=== PATIENT | female | born 1950 | race Hispanic/Latino ===

== ENCOUNTER → 2017-03-08 | Outpatient (CLI) | payer MEDICARE ==
[~2017-03-08] MED LIST: ACTOS15 MG PO; ALEVE220 MG PO; AMLODIPINE BESY10 MG PO; APIDRA SOL100 UNIT/1 SC; COUMADIN3 MG PO; DIOVAN160 MG PO; DIOVAN80 MG PO; IBUPROFEN400 MG PO; KLOR-CON 1010 MEQ PO; LANTUS100 UNITS/ SC; LASIX40 MG PO; METFORMIN HCL500 MG PO; MULTI-VITAMIN1 EACH PO; NORCO 7.5-3251 EACH PO; ROPINIROLE HCL1 MG PO; SIMVASTATIN20 MG PO; ULTRAM 50MG50 MG PO; VIT D3 PO; ZOLOFT50 MG PO; [UNRECOGNIZED DRUG - OTHER] PO; vit c PO
--- NOTE | 2017-03-08 19:30 | Diagnostic Imaging Report ---
EXAM: VENTILATION PERFUSION LUNG SCAN INDICATION: 66 F with history of blood clots; SOB; possible pulmonary hypertension COMPARISON: CT chest 08/29/2016 DISCUSSION: Xenon-133 gas 20 mCi was administered via inhalation. Dynamic images of the lungs in the posterior projection were obtained through single breath and washout phases. Distribution of tracer activity is irregular throughout the lungs. Washout is diffusely delayed without evidence of air trapping. Perfusion images of the lungs in multiple projections were obtained following intravenous administration of 6.6 mCi of Tc-99m MAA. Distribution of tracer is irregular throughout the lungs. There are no segmental perfusion defects of any size. The contours of the lungs are well demarcated. The cardiac silhouette is enlarged. Images of the head show no intracerebral accumulation of the tracer. Images of the kidneys show no intraparenchymal accumulation of tracer. IMPRESSION: 1. Scan findings represent a VERY LOW probability for acute pulmonary embolic disease based on the PIOPED II criteria. 2. Scan findings are compatible with diffuse parenchymal and/or obstructive lung disease. 3. No right to left shunt is identified. Findings typical of chronic thromboembolic pulmonary hypertension are not present. 4. Enlarged cardiac silhouette. Signed by: Dr. Sylvia Pacheco M.D. on 03/08/2017 7:27 PM
== END ==
LOC: NM 12:54
PROVIDERS: ATTEND Internal Medicine Critical Care Medicine
DX: I26.99 Other pulmonary embolism without acute cor pulmonale (principal)
CPT/HCPCS: 78582

== ENCOUNTER → 2017-07-18 | Outpatient (CLI) | payer MEDICARE ==
[~2017-07-18] MED LIST changes: +REGADENOSON 0.4 MG/5 ML SYR IV ONE
--- NOTE | 2017-07-19 13:30 | Cardiology Report ---
DATE OF STUDY: July 18, 2017 LEXISCAN NUCLEAR STRESS TEST INDICATIONS: Chest pain. DESCRIPTION OF PROCEDURE: After informed consent, the patient was brought to the stress lab. She was given 11 mCi of technetium 99 Myoview, and myocardial perfusion SPECT images were obtained in the horizontal long and short axis and vertical long axis. Subsequently, the patient was given 0.4 mg of Lexiscan over 10 seconds. Patient was given 33 mCi of technetium 99 Myoview intravenously, and myocardial perfusion SPECT images were obtained in horizontal long axis and short axis and vertical long axis. Gated images were also obtained. Patient tolerated the procedure without any complications. REPORT: Baseline EKG shows atrial fibrillation at 63 beats per minute, normal axis, normal intervals, PVCs, nonspecific ST-T changes. PARAMETERS 1. Resting heart rate is 73 beats per minute. 2. Maximal heart rate is 91 beats per minute. 3. Resting blood pressure 142/81 mmHg. 4. Maximum blood pressure 149/76 mmHg. REASON FOR TERMINATION: Endpoint attained. INTERPRETATION 1. Negative for chest pain. 2. Negative for arrhythmias. 3. Blood pressure response consistent with Lexiscan. 4. No significant ST-T changes seen during Lexiscan infusion compared to baseline. 5. Analysis of SPECT images reveals patchy radioisotope uptake both during stress and at rest without any significant reversible or fixed perfusion defects. CONCLUSIONS 1. No evidence of significant ischemia or infarction on this study. 2. No wall motion abnormalities on this study. 3. Ejection fraction is 67%. Job#: [id number]
== END ==
LOC: NM 07:50
DX: I50.32 Chronic diastolic (congestive) heart failure (principal)
CPT/HCPCS: 78452; 93017; A9502

== ENCOUNTER → 2018-02-22 | Day surgery (SDC) | payer MEDICARE ==
[2018-02-21 13:20] LABS: BASOPHILS % 0.4 % (0.0-1.0); EOSINOPHILS # (AUTO) 0.2 (0.0-0.4); EOSINOPHILS % 2.4 % (0.0-6.0); HEMATOCRIT 41.8 % (34.2-44.1); LYMPHOCYTES # (AUTO) 0.9 (1.0-3.2); LYMPHOCYTES % 11.8 % (18.0-39.1); MEAN CORPUSCULAR HEMOGLOBIN 28.8 pg (28-32); MEAN CORPUSCULAR HGB CONC 31.1 g/dL (31-35); MEAN CORPUSCULAR VOLUME 92.5 fL (81-99); MONOCYTES # (AUTO) 0.5 (0.2-0.8); MONOCYTES % 6.6 % (4.4-11.3); NEUTROPHILS # (AUTO) 5.8 (2.1-6.9); PLATELET COUNT 313 x10e3/uL (140-360); RED BLOOD COUNT 4.52 x10e6/uL (3.6-5.1); RED CELL DISTRIBUTION WIDTH 13.1 % (11.7-14.4)
[~2018-02-22] MED LIST changes: +HUMULIN R100 UNIT/2 SQ; +INSULIN REGULAR, HUMAN 100 UNIT/1 ML 3ML VIAL ONE; +LOSARTAN POTASS25 MG PO; +MIDAZOLAM HCL 2 MG/2 ML VIAL ONE; +PROPOFOL IV EMULSION 10 MG/ML 20 ML VIAL ONE; -REGADENOSON 0.4 MG/5 ML SYR IV ONE; +WARFARIN SODIUM3 MG PO
--- OUTSIDE RECORDS SUMMARY | 2018-02-22 06:07 | XMS REPORT | Summary of Care ---
Author Organization Unknown Address Unknown Phone Unavailable Encounter Dates Location Diagnoses Discharge Providers Disposition 05/06/2013 [facility] Outpatient Imaging - Home Po Ingram 05/06/2013 [address] [place], [place] [id number] [place] [address] Reason for Visit 404 - HTN HRT/CHRON K Problem List Condition Effective Dates Status Health Status Informant Back pain(Confirmed) Resolved Cancer(Confirmed)1 Resolved Diabetes Active mellitus(Confirmed) Hypertension(Confirm Active ed) 1skin cancer of nose Allergies, Adverse Reactions, Alerts Status Substance Reaction Severity Active NKDA Medications No data available for this section Medications Administered During Your Visit No data available for this section Immunizations No data available for this section Social History Social History Type Response Smoking Status Use: Never smoker. Household tobacco concerns: No. Tobacco smoke exposure: None. Did the Patient Smoke Cigarettes Anytime During the Last 365 Days? No. Cessation Counseling Provided? No.
--- OUTSIDE RECORDS SUMMARY | 2018-02-22 06:07 | XMS REPORT | Summary of Care ---
Author Organization Unknown Address Unknown Phone Unavailable Encounter HQ Cristian_black([facility]) [id number] Date(s): 10/02/13 - 10/02/13 [facility] Outpatient Imaging - [address] [address]- [place] Discharge Disposition: Home Physician Attending: Po Ingram MD Reason for Visit 401.9 - HYPERTENSION NO Problem List Condition Effective Dates Status Health Status Informant Back pain(Confirmed) Resolved Cancer(Confirmed)1 Resolved Diabetes Active mellitus(Confirmed) Hypertension(Confirm Active ed) 1skin cancer of nose Allergies, Adverse Reactions, Alerts Substance Reaction Severity Status NKDA Active Medications No data available for this section Medications Administered During Your Visit No data available for this section Immunizations No data available for this section Social History Social History Type Response Smoking Status Never smoker, Concerns about tobacco use in household: No, Exposure to Tobacco Smoke None, Cigarette Smoking Last 365 Days No, Reg Smoking Cessation Counseling No
--- OUTSIDE RECORDS SUMMARY | 2018-02-22 06:07 | XMS REPORT | Summary of Care ---
Author Organization Unknown Address Unknown Phone Unavailable Encounter Dates Location Diagnoses Discharge Providers Disposition 04/26/2013 [facility] [id number] epistaxis [place], [place] [address]- , [facility] Reason for Visit NOSE BLEED Vital Signs Most recent to 1 2 oldest [Reference Range]: Height 170.18 cm (04/26/2013 14:49:00 [place]) Temperature Oral 97.5 DegF 97.6 DegF [96.4-99.1 DegF] (04/26/2013 16:10:00 [place]) (04/26/2013 14:49:00 [place]) Systolic Blood 176 mmHg 180 mmHg Pressure [90-140 *HI* *HI* mmHg] (04/26/2013 16:10:00 [place]) (04/26/2013 14:49:00 [place]) Diastolic Blood 83 mmHg 91 mmHg Pressure [60-90 (04/26/2013 16:10:00 [place]) *HI* mmHg] (04/26/2013 14:49:00 [place]) Respiratory Rate 18 BRMIN 18 BRMIN [14-20 BRMIN] (04/26/2013 16:10:00 [place]) (04/26/2013 14:49:00 [place]) Peripheral Pulse 77 bpm 79 bpm Rate [60-100 bpm] (04/26/2013 16:10:00 [place]) (04/26/2013 14:49:00 [place]) Weight 152.273 kg (04/26/2013 14:49:00 [place]) Body Mass Index 52.58 m2 (04/26/2013 14:49:00 [place]) Problem List Condition Effective Dates Status Health Status Informant Back pain(Confirmed) Resolved Cancer(Confirmed)1 Resolved Diabetes Active mellitus(Confirmed) Hypertension(Confirm Active ed) 1skin cancer of nose Allergies, Adverse Reactions, Alerts Status Substance Reaction Severity Active NKDA Medications Medication Instructions Start Date Stop Date Status mupirocin topical 2% 1 appl, TOP, TID, # 22 gm, 0 04/26/2013 Ordered ointment Refill(s) Arya-Synephrine Extra 2 spray, Route: NASAL, Dosing 04/26/2013 04/26/2013 Discontinued Strength Nasal 1% Weight 152.273, kg, ONCE, STAT, spray Start date: 04/26/13 16:02:00, Stop date: 04/26/13 16:02:00 Medications Administered During Your Visit No data available for this section Immunizations No data available for this section Social History Social History Type Response Smoking Status Use: Never smoker. Household tobacco concerns: No. Tobacco smoke exposure: None. Did the Patient Smoke Cigarettes Anytime During the Last 365 Days? No. Cessation Counseling Provided? No.
--- OUTSIDE RECORDS SUMMARY | 2018-02-22 06:07 | XMS REPORT | Continuity of Care Document ---
Author Author Husam elias Organization Interface Address Unknown Phone Unavailable Problems Problem Status Onset Date Classification Date Reported Comments Source Pain in left shoulder 2017 08/16/2017 [facility] [place] [facility] UNK Active 07/27/2015 [facility] LAP TOTAL HYST Active 07/27/2015 [facility] Z12.31 - ENCNTR SCREEN MAMMOGRAM FOR MA Active 05/19/2015 [facility] 786.05 / 493.90 / 786.2 Active 11/21/2014 [facility] R06.02/J45.909/R05 Active 11/21/2014 [facility] 786.05 - SHORTNESS OF BR Active 07/23/2014 [facility] 496 - CHR AIRWAY OBST Active 07/04/2014 [facility] V76.12 - SCREEN MAMMOGRA Active 05/06/2014 [facility] 786.51; CARDIAC PAIN 401.9; HTN Active 12/12/2013 [facility] Discharge Diagnosis: Acute shoulder pain 10/30/2013 11/02/2013 [facility] SHOULDER PAIN Active 10/30/2013 [facility] NOSE BLEED Active 04/26/2013 [facility] Discharge Diagnosis: epistaxis 04/26/2013 04/28/2013 [facility] Back pain Resolved Problem 08/16/2017 [facility] [place] [facility], [facility] [place] Diabetes mellitus Active Problem 08/16/2017 [facility] [place] [facility], [facility] [place] Hypertension Active Problem 08/16/2017 [facility] [place] Cancer<sup>1</sup> Resolved Problem 08/21/2015 skin cancer of nose ALBERTO [facility], ANGELAD [place],[facility] H/O abdominal hysterectomy Active Problem 08/16/2017 [facility] Rectal bleeding Active Problem 08/16/2017 [facility] [facility] Depression Active Problem 09/20/2016 [facility] [place] [facility] SHORTNESS OF BREATH Active [facility] OTHER ASTHMA Active [facility] COUGH Active [facility] Medications Medication Details Route Status Patient Instructions Ordering Provider Order Date Source ibuprofen 800 mg oral tablet 800 mg=1 tab, PO, Q8H, PRN Pain, Take with food, # 30 tab, 0 Refill(s) Active 08/18/2015 [facility] valsartan 160 mg, 1 tab, Route: PO, Drug form: TAB, Daily, Dosing Weight 145.864, kg, Start date: 08/18/15 9:00:00 CDT, Duration: 30 day, Stop date: 09/16/15 9:00:00 CDTNotes: Same as Diovan Inactive 08/18/2015 [facility] Sertraline 50 mg, 1 tab, Route: PO, Drug form: TAB, Daily, Dosing Weight 145.864, kg, Start date: 08/18/15 9:00:00 CDT, Duration: 30 day, Stop date: 09/16/15 9:00:00 CDTNotes: (Same as: Zoloft) Inactive 08/18/2015 [facility] Vitamin D3 2000 intl units oral tablet 2,000 IntlUnit, 2 tab, Route: PO, Drug form: TAB, Daily, Dosing Weight 145.864, kg, Start date: 08/18/15 9:00:00 CDT, Duration: 30 day, Stop date: 09/16/15 9:00:00 CDTNotes: Same as : Vitamin D3 Inactive 08/18/2015 [facility] Simvastatin 20 mg, 1 tab, Route: PO, Drug form: TAB, Bedtime, Dosing Weight 145.864, kg, Start date: 08/17/15 21:00:00 CDT, Duration: 30 day, Stop date: 09/15/15 21:00:00 CDTNotes: (Same as: Zocor) No Longer Active 08/18/2015 [facility] Lantus Route: SUB-Q, Bedtime, Dosing Weight 145.864, kg, Start date: 08/17/15 21:00:00 CDT, Duration: 30 day, Stop date: 09/15/15 21:00:00 CDT Inactive 08/18/2015 [facility] Levemir FlexPen 35 unit, 0.35 mL, Route: SUB-Q, Drug form: INJ, Bedtime, Start date: 08/17/15 21:00:00 CDT, Stop date: 09/15/15 21:00:00 CDTNotes: Same as Levemir Do not hold insulin without contacting prescriber W ASTE: F/P - Black; E - Municipal Trash Bin "single patient use only" Inactive 08/18/2015 [facility] insulin detemir 35 unit, 0.35 mL, Route: SUB-Q, Drug form: INJ, Bedtime, Dosing Weight 145.864, kg, Start date: 08/17/15 21:00:00 CDT, Duration: 30 day, Stop date: 09/15/15 21:00:00 CDTNotes: Same as Levemir Do not hold insulin without contacting prescriber WASTE: F/P - Black; E - Municipal Trash Bin "single patient use only" No Longer Active 08/18/2015 [facility] ropinirole 1 mg, 1 tab, Route: PO, Drug form: TAB, TID, Dosing Weight 145.864, kg, Start date: 08/17/15 17:00:00 CDT, Duration: 30 day, Stop date: 09/16/15 13:00:00 CDTNotes: (Same as: Requip) No Longer Active 08/17/2015 [facility] Insulin, Aspart, Human 6 unit, 0.06 mL, Route: SUB-Q, Drug form: SOLN, TID-Before Meals, Dosing Weight 145.864, kg, PRN Blood Glucose Results, Start date: 08/17/15 13:22:00 CDT, Duration: 30 day, Stop date: 09/16/15 13:21:00 CDTNotes: Roll in palms of hands gently; Do not shake vigorously. (Same as: NovoLOG) "single patient use only" WASTE: F/P - Black; E - Municipal Trash Bin Stable for 28 days at room temperature. Expires in days from Date No Longer Active 08/17/2015 [facility] Glucagon 1 mg, Route: IM, Drug form: PDR/INJ, PRN, Dosing Weight 145.864, kg, PRN Blood Glucose Results, Start date: 08/17/15 13:22:00 CDT, Duration: 30 day, Stop date: 09/16/15 13:21:00 CDT No Longer Active 08/17/2015 [facility] Dextrose 50% Syringe 25 gm, 50 mL, Route: IVP, Drug Form: INJ, Dosing Weight 145.864, kg, PRN, PRN Blood Glucose Results, Start date: 08/17/15 13:22:00 CDT, Duration: 30 day, Stop date: 09/16/15 13:21:00 CDT No Longer Active 08/17/2015 [facility] Ketorolac 30 mg, 1 mL, Route: IVP, Drug form: INJ, Q6H, Dosing Weight 145.864, kg, Start date: 08/17/15 12:00:00 CDT, Duration: 4 day, Stop date: 08/21/15 6:00:00 CDTNotes: (Same as:Toradol) IV bolus must be given > 15 seconds. Give IM administration slowly and deeply into the muscle. Not for use > 4 days MEDICATION WASTE Product Size: 30 mg Product Wasted: ___ mg No Longer Active 08/17/2015 [facility] Insulin regular 10 unit, Route: IV, ONCE, Dosing Weight 145.864, kg, Start date: 08/17/15 11:46:00 CDT, Stop date: 08/17/15 11:46:00 CDT Inactive 08/17/2015 [facility] Flumazenil 0.2 mg, Route: IVP, PRN, Dosing Weight 145.864, kg, PRN Benzodiazepine Reversal, Initial dose, Start date: 08/17/15 11:32:00 CDT, Duration: 30 day, Stop date: 09/16/15 11:31:00 CDT Inactive 08/17/2015 [facility] Hydromorphone 0.5 mg, Route: IVP, Q5Min, Dosing Weight 145.864, kg, PRN Pain Score 7-10, Start date: 08/17/15 11:32:00 CDT, Duration: 4 doses or times, Stop date: Limited # of times Inactive 08/17/2015 [facility] Fentanyl 50 microgram, Route: IVP, Q5Min, Dosing Weight 145.864, kg, PRN Pain Score 7-10, Start date: 08/17/15 11:32:00 CDT, Duration: 2 doses or times, Stop date: Limited # of times Inactive 08/17/2015 [facility] Ondansetron 4 mg, Route: IVP, ONCE, Dosing Weight 145.864, kg, PRN Nausea & Vomiting, Start date: 08/17/15 11:32:00 CDT Inactive 08/17/2015 [facility] Naloxone 0.4 mg, Route: IVP, Q2MIN, Dosing Weight 145.864, kg, PRN Narcotic Reversal, Start date: 08/17/15 11:32:00 CDT, Duration: 8 doses or times, Stop date: Limited # of times Inactive 08/17/2015 [facility] Oxycodone 5 mg, Route: PO, Drug form: TAB, Q4H, Dosing Weight 145.864, kg, PRN Pain Score 4-6, Start date: 08/17/15 11:32:00 CDT, Duration: 30 day, Stop date: 09/16/15 11:31:00 CDT Inactive 08/17/2015 [facility] Labetalol 10 mg, Route: IVP, Q5Min, Dosing Weight 145.864, kg, PRN Elevated BP, Start date: 08/17/15 11:32:00 CDT, Duration: 5 doses or times, Stop date: Limited # of times Inactive 08/17/2015 [facility] Hydralazine 10 mg, Route: IVP, Q20Min, Dosing Weight 145.864, kg, PRN Elevated BP, Start date: 08/17/15 11:32:00 CDT, Duration: 2 doses or times, Stop date: Limited # of times Inactive 08/17/2015 [facility] neostigmine (ANES) Route: IV, Drug form: INJ, ONCE, Stop date: 08/17/15 11:17:00 CDT Inactive 08/17/2015 [facility] glycopyrrolate (ANES) Route: IV, Drug form: INJ, ONCE, Stop date: 08/17/15 11:17:00 CDT Inactive 08/17/2015 [facility] ketOROLAC (ANES) IV, ONCE Inactive 08/17/2015 [facility] ondansetron (ANES) Route: IV, Drug form: INJ, ONCE, Stop date: 08/17/15 11:17:00 CDT Inactive 08/17/2015 [facility] Ondansetron 4 mg, 2 mL, Route: IVP, Drug form: INJ, Q6H, Dosing Weight 145.864, kg, PRN Nausea & Vomiting, Start date: 08/17/15 10:53:00 CDT, Duration: 30 day, Stop date: 09/16/15 10:52:00 CDTNotes: (Same as: Nataliia) MEDICATION WASTE Product Size: 4 mg Product Wasted: ___ mg No Longer Active 08/17/2015 [facility] Docusate 100 mg, 1 cap, Route: PO, Drug form: CAP, BID, Dosing Weight 145.864, kg, PRN Constipation, Start date: 08/17/15 10:53:00 CDT, Duration: 30 day, Stop date: 09/16/15 10:52:00 CDTNotes: (Same as: Colace) (Do Not Crush) No Longer Active 08/17/2015 [facility] Acetaminophen 325 MG / Hydrocodone Bitartrate 5 MG Oral Tablet 2 tab, Route: PO, Drug Form: TAB, Dosing Weight 145.864, kg, Q4H, PRN Pain Score 4-6, Start date: 08/17/15 10:53:00 CDT, Duration: 30 day, Stop date: 09/16/15 10:52:00 CDTNotes: (Same as: [place]if[place] 325/5) Do not exceed 4gm/day of acetaminophen. No Longer Active 08/17/2015 [facility] Morphine 2 mg, 1 mL, Route: IVP, Drug form: INJ, Q3H, Dosing Weight 145.864, kg, PRN Pain Score 1-3, Start date: 08/17/15 10:53:00 CDT, Duration: 30 day, Stop date: 09/16/15 10:52:00 CDTNotes: (Same as:MORPhine Sulfate) No Longer Active 08/17/2015 [facility] Calcium Chloride 0.0014 MEQ/ML / Potassium Chloride 0.004 MEQ/ML / Sodium Chloride 0.103 MEQ/ML / Sodium Lactate 0.028 MEQ/ML Injectable Solution 1,000 mL, Rate: 125 ml/hr, Infuse over: 8 hr, Route: IV, Dosing Weight 145.864 kg, Total Volume: 1,000, Start date: 08/17/15 10:53:00 CDT, Duration: 30 day, Stop date: 09/16/15 10:52:00 CDT No Longer Active 08/17/2015 [facility] acetaminophen (ANES) (ANES) Route: IV, Drug form: INJ, Start date: 08/17/15 10:42:00 CDT, Stop date: 08/17/15 11:42:00 CDT Inactive 08/17/2015 [facility] hydromorphone (ANES) Route: IV, Drug form: INJ, ONCE, Stop date: 08/17/15 9:27:00 CDT Inactive 08/17/2015 [facility] rocuronium (ANES) Route: IV, Drug form: INJ, ONCE, Stop date: 08/17/15 8:52:00 CDT Inactive 08/17/2015 [facility] lidocaine (ANES) Route: IV, Drug form: INJ, ONCE, Stop date: 08/17/15 8:52:00 CDT Inactive 08/17/2015 [facility] propofol (ANES) Route: IV, Drug form: INJ, ONCE, Stop date: 08/17/15 8:52:00 CDT Inactive 08/17/2015 [facility] metoclopramide (ANES) Route: IV, Drug form: INJ, ONCE, Stop date: 08/17/15 8:47:00 CDT Inactive 08/17/2015 [facility] fentaNYL (ANES) Route: IV, Drug form: INJ, ONCE, Stop date: 08/17/15 8:47:00 CDT Inactive 08/17/2015 [facility] midazolam (ANES) Route: IV, Drug form: SOLN, ONCE, Stop date: 08/17/15 8:47:00 CDT Inactive 08/17/2015 [facility] ceFAZolin (ANES) (ANES) Route: IV, Drug form: INJ, Start date: 08/17/15 7:45:00 CDT, Stop date: 08/17/15 8:45:00 CDT Inactive 08/17/2015 [facility] LR 1000 mL INJ (ANES) Route: IV, Total Volume: 1,000, Start date: 08/17/15 7:40:00 CDT, Stop date: 08/17/15 8:40:00 CDT Inactive 08/17/2015 [facility] Calcium Chloride 0.0014 MEQ/ML / Potassium Chloride 0.004 MEQ/ML / Sodium Chloride 0.103 MEQ/ML / Sodium Lactate 0.028 MEQ/ML Injectable Solution 1,000 mL, Rate: 25 ml/hr, Infuse over: 40 hr, Route: IV, Dosing Weight 145.864 kg, Total Volume: 1,000, Start date: 08/17/15 7:25:00 CDT, Duration: 30 day, Stop date: 09/16/15 7:24:00 CDT Inactive 08/17/2015 [facility] Insulin regular 6 unit, Route: IV, ONCE, Dosing Weight 145.864, kg, Start date: 08/17/15 7:13:00 CDT, Stop date: 08/17/15 7:13:00 CDT Inactive 08/17/2015 [facility] pioglitazone 15 mg oral tablet 15 mg=1 tab, PO, Daily, 0 Refill(s) Active 08/11/2015 [facility] Vitamin D3 2000 intl units oral tablet 2,000 IntlUnit=1 tab, PO, Daily, 0 Refill(s) Active 08/11/2015 [facility] ProAir RespiClick See Instructions, 2 puff INHALATION Q4H, 0 Refill(s) Active 08/11/2015 [facility] Metformin 1,000 mg, BID, 0 Refill(s) Active 08/11/2015 [facility] Lantus 30 units, SUB-Q, Bedtime, 0 Refill(s) Active 08/11/2015 [facility] hydrocortisone topical 1% cream 1 appl, TOP, TID, 0 Refill(s) Active 08/11/2015 [facility] Glipizide 5 MG / Metformin hydrochloride 500 MG Oral Tablet 1 tab, PO, BID, 0 Refill(s) Active 08/11/2015 [facility] Furosemide 40 MG Oral Tablet 40 mg=1 tab, PO, Daily, 0 Refill(s) Active 08/11/2015 [facility] valsartan 160 mg oral tablet 160 mg=1 tab, PO, Daily, 0 Refill(s) Active 08/11/2015 [facility] Tudorza Pressair 400 mcg/inh inhalation powder =1 puff, INHALER, BID, # 1 ea, 3 Refill(s) Active 08/11/2015 [facility] tramadol hydrochloride 50 MG Oral Tablet 50 mg=1 tab, PO, TID, 0 Refill(s) No Longer Active 08/11/2015 [facility] sertraline 50 mg oral tablet 50 mg=1 tab, PO, Daily, 0 Refill(s) Active 08/11/2015 [facility] simvastatin 20 mg oral tablet 20 mg=1 tab, PO, Bedtime, 0 Refill(s) Active 08/11/2015 [facility] rOPINIRole 1 mg oral tablet 1 mg=1 tab, PO, TID, 0 Refill(s) Active 08/11/2015 [facility] Proctozone HC 2.5% topical cream 1 appl, TOP, TID, 0 Refill(s) Active 08/11/2015 [facility] tramadol hydrochloride 50 MG Oral Tablet 1-2 tab, PO, Q6H, # 24 tab, 0 Refill(s) Active 10/31/2013 [facility] Mupirocin 0.02 MG/MG Topical Ointment 1 appl, TOP, TID, # 22 gm, 0 Refill(s) Active 04/26/2013 [facility] Phenylephrine Hydrochloride 10 MG/ML Nasal [place] [Arya-Synephrine] 2 spray, Route: NASAL, Dosing Weight 152.273, kg, ONCE, STAT, Start date: 04/26/13 16:02:00, Stop date: 04/26/13 16:02:00 Inactive 04/26/2013 [facility] Allergies, Adverse Reactions, Alerts Substance Category Reaction Severity Reaction type Status Date Reported Comments Source Immunizations Immunization Date Given Site Status Last Updated Comments Source Results Order Name Results Value Reference Range Date Interpretation Comments Source Breast Mammo Scrn BALA incl CAD MA Breast Mammo Scrn BALA incl CAD MA BILATERAL DIGITAL SCREENING MAMMOGRAM WITH CAD: 10/26/2017 CLINICAL: Routine/Screening. Current study was evaluated with a Computer Aided Detection (CAD) system. COMPARISON:Comparison is made to exams dated: 09/17/2016 mammogram, 07/18/2015 mammogram - [facility], 06/11/2014 mammogram, and 05/29/2013 mammogram - [facility]. TECHNIQUE: Mammographic views were obtained using digital acquisition. Current study was also evaluated with a Computer Aided Detection (CAD) system. FINDINGS: The tissue of both breasts is almost entirely fat. There is a benign appearing intramammary node in the left breast. No significant masses, calcifications, or other findings are seen in either breast. There has been no significant interval change. IMPRESSION: BENIGN RECOMMENDATION:There is no mammographic evidence of malignancy. A 1 year screening mammogram is recommended.(10/27/2018) This exam was interpreted at [id number] for TINO Soto. SUMMARY: Clinical follow-up of the patient's breast pain is recommended. Professional services are provided by the [facility]. Jose Cardenas M.D. rsl/penrad:10/27/2017 14:03:58 Syrup Maker Cook(s): RT Shannan(R)(M), [facility] letter sent: BI-RADS 1/2 Mammogram BI-RADS: 2 Benign 10/26/2017 - - Read by: Jose Cardenas MD Dictated Date/time: 10/27/17 14:03 Electronically Signed by: Jose Cardenas MD 10/27/17 14:03 FINAL REPORT ALBERTO Barker Chest 2 views DX Chest 2 views DX EXAM: Chest 2 views DX HISTORY: - SOB COMPARISON: 08/11/2015 Left Mediport terminates over the SVC. No pneumothorax or effusion. Cardiomegaly. No acute consolidation. Mild discogenic degenerative changes are noted. IMPRESSION: No acute abnormality. 06/12/2017 - - Read by: Annabella Mathew MD Dictated Date/time: 06/13/17 07:37 Electronically Signed by: Annabella Mathew MD 06/13/17 07:39 FINAL REPORT ALBERTO Barker Shoulder series DX Shoulder series DX HISTORY: - M25.512 Pain in left shoulder TECHNIQUE: Internal and external rotation views of the left shoulder as well as scapular Y view. COMPARISON: Correlation is made to bilateral shoulder radiographs dated 05/06/2013. FINDINGS: Normal mineralization and anatomic alignment of the bones without fracture or dislocation. Mild osteoarthritic degenerative change of the acromioclavicular joint is noted. The glenohumeral joint space appears well- maintained. Visualized portion of the left lung is clear. A left chest wall port is partially visualized. IMPRESSION: Degenerative change of the AC joint as above. No acute osseous injury. [id number] 05/10/2017 - - Read by: Carlos Rivera MD Dictated Date/time: 05/10/17 14:24 Electronically Signed by: Carlos Rivera MD 05/10/17 14:25 FINAL REPORT TINO Barker Breast Mammo Scrn BALA incl CAD MA Breast Mammo Scrn BALA incl CAD MA - BREAST MAMMO SCRN BALA INCL CAD MA BILATERAL DIGITAL SCREENING MAMMOGRAM WITH CAD: 09/17/2016 CLINICAL: Screening/Z12.31. Current study was evaluated with a Computer Aided Detection (CAD) system. Comparison is made to exams dated: 07/18/2015 mammogram - [facility], 05/29/2013 mammogram and 06/11/2014 mammogram - [facility]. The tissue of both breasts is almost entirely fat. There is a benign intramammary node in the left breast. No significant masses, calcifications, or other findings are seen in either breast. There has been no significant interval change. IMPRESSION: BENIGN There is no mammographic evidence of malignancy. A 1 year screening mammogram is recommended. Professional services are provided by the [facility]. Dinh Lomas M.D. cm/penmargaret:09/19/2016 12:22:25 Syrup Maker Cook: Yumiko Fay, [facility] This exam was dictated and interpreted by [id number] for CANDE Chua 15. letter sent: Normal exam Mammogram BI-RADS: 2 Benign 09/17/2016 - - Read by: Noe Bowles MD Dictated Date/time: 09/19/16 12:22 Electronically Signed by: Noe Bowles MD 09/19/16 12:22 FINAL REPORT TINO Barker Bone Density DXA Dual Energy MA Bone Density DXA Dual Energy MA - Bone Density DXA Dual Energy MA BONE DENSITY EVALUATION: 09/12/2016 CLINICAL DATA: Post menopausal. FINDINGS: Bone density evaluation was performed 09/12/2016 on the AP L3-L4 region of spine using a Hologic unit. The BMD average for the exam is 0.873 g/cm2. The T-score is -2.10 and the Z-score is -0.20. This matches the World Health Organization's criteria for osteopenia and places the patient at a medium risk for fracture. An additional bone density evaluation was performed 09/12/2016 on the right femur neck using a Hologic unit. The BMD average for the exam is 0.770 g/cm2. The T-score is -0.70 and the Z-score is 0.60. This matches the World Health Organization's criteria for normal bone density and places the patient within normal limits of fracture risk. An additional bone density evaluation was performed 09/12/2016 on the right hip using a Hologic unit. The BMD average for the exam is 0.805 g/cm2. The T-score is -1.10 and the Z-score is -0.10. This matches the World Health Organization's criteria for osteopenia and places the patient at a medium risk for fracture. An additional bone density evaluation was performed 09/12/2016 on the left ultra distal radius and ulna using a Hologic unit. The BMD average for the exam is 0.648 g/cm2. The T-score is -0.80 and the Z-score is 0.90. This matches the World Health Organization's criteria for normal bone density and places the patient within normal limits of fracture risk. An additional bone density evaluation was performed 09/12/2016 on the left femur neck using a Hologic unit. The BMD average for the exam is 0.865 g/cm2. The T- score is 0.10 and the Z-score is 1.40. This matches the World Health Organization's criteria for normal bone density and places the patient within normal limits of fracture risk. An additional bone density evaluation was performed 09/12/2016 on the left hip using a Hologic unit. The BMD average for the exam is 0.870 g/cm2. The T-score is -0.60 and the Z-score is 0.40. This matches the World Health Organization's criteria for normal bone density and places the patient within normal limits of fracture risk. IMPRESSION: OSTEOPENIA Patient is at medium risk for fracture. Professional services are provided by the [facility]. This exam was dictated and interpreted by [id number] for CANDE Chua 15. Dinh Lomas M.D., cm/suyapa:09/12/2016 16:10:10 Syrup Maker Cook: Erica VOSS)(Shailesh), [facility] 09/12/2016 - - Read by: Noe Bowles MD Dictated Date/time: 09/12/16 16:10 Electronically Signed by: Noe Bowles MD 09/12/16 16:10 FINAL REPORT ALBERTO Barker HEMATOLOGY Hct 36.7 % 36.0 - 48.0 08/18/2015 [facility] HEMATOLOGY Hgb 11.7 g/dL 12.0 - 16.0 08/18/2015 [facility] SPECIAL CHEMISTRY Hgb A1C 10.2 % <=5.6 % 08/17/2015 [facility] BLOOD BANK RESULTS Antibody Scrn Negative (08/17/15 7:10 AM) 08/17/2015 [facility] BLOOD BANK RESULTS ABO/Rh O POS 08/17/2015 [facility] CHEM PANEL eGFR 56 mL/min/1.73m2 08/11/2015 Result Comment: The eGFR is calculated using the CKD-EPI formula. In most young, healthy individuals the eGFR will be >90 mL/min/1.73m2. The eGFR declines with age. An eGFR of 60-89 may be normal in some populations, particularly the elderly, for whom the CKD-EPI formula has not been extensively validated. Use of the eGFR is not recommended in the following populations: Individuals with unstable creatinine concentrations, including patients and those with serious co-morbid conditions. Patients with extremes in muscle mass or diet. The data above are obtained from the National Kidney Disease Education Program (NKDEP) which additionally recommends that when the eGFR is used in patients with extremes of body mass index for purposes of drug dosing, the eGFR should be multiplied by the estimated BMI. [facility] [facility] CHEM PANEL Alk Phos 104 unit/L 39 - 136 08/11/2015 [facility] CHEM PANEL Bili Total 0.1 mg/dL 0.2 - 1.3 08/11/2015 [facility] CHEM PANEL Total Protein 7.0 g/dL 6.4 - 8.4 08/11/2015 [facility] CHEM PANEL ALT 18 unit/L 0 - 65 08/11/2015 [facility] CHEM PANEL AST 8 unit/L 0 - 37 08/11/2015 [facility] CHEM PANEL Calcium Lvl 8.4 mg/dL 8.5 - 10.5 08/11/2015 [facility] CHEM PANEL Albumin Lvl 3.2 g/dL 3.5 - 5.0 08/11/2015 [facility] CHEM PANEL Creatinine Lvl 1.05 mg/dL 0.50 - 1.40 08/11/2015 [facility] CHEM PANEL Sodium Lvl 138 meq/L 135 - 145 08/11/2015 [facility] CHEM PANEL Chloride Lvl 102 meq/L 95 - 109 08/11/2015 [facility] CHEM PANEL Potassium Lvl 4.0 meq/L 3.5 - 5.1 08/11/2015 [facility] CHEM PANEL CO2 29 meq/L 24 - 32 08/11/2015 [facility] CHEM PANEL Glucose Lvl 289 mg/dL 70 - 99 08/11/2015 [facility] CHEM PANEL BUN 17 mg/dL 7 - 22 08/11/2015 [facility] CHEM PANEL A/G Ratio 0.8 0.7 - 1.6 08/11/2015 [facility] CHEM PANEL Globulin 3.8 g/dL 2.0 - 4.0 08/11/2015 [facility] CHEM PANEL AGAP 11.0 meq/L 10.0 - 20.0 08/11/2015 [facility] CHEM PANEL B/C Ratio 16 6 - 25 08/11/2015 [facility] HEMATOLOGY Monocytes 5.9 % 2.0 - 12.0 08/11/2015 [facility] HEMATOLOGY Eosinophils 2.5 % 0.0 - 4.0 08/11/2015 [facility] HEMATOLOGY Segs-Bands # 8.0 K/CMM 1.5 - 8.1 08/11/2015 [facility] HEMATOLOGY Lymphocytes # 1.9 K/CMM 1.0 - 5.5 08/11/2015 [facility] HEMATOLOGY Basophils 0.9 % 0.0 - 1.0 08/11/2015 [facility] HEMATOLOGY Eosinophils # 0.3 K/CMM 0.0 - 0.5 08/11/2015 [facility] HEMATOLOGY Basophils # 0.1 K/CMM 0.0 - 0.2 08/11/2015 [facility] HEMATOLOGY Monocytes # 0.6 K/CMM 0.0 - 0.8 08/11/2015 [facility] HEMATOLOGY Lymphocytes 17.0 % 20.0 - 40.0 08/11/2015 [facility] HEMATOLOGY Segs 73.7 % 45.0 - 75.0 08/11/2015 [facility] HEMATOLOGY WBC 10.9 K/CMM 3.7 - 10.4 08/11/2015 [facility] HEMATOLOGY RBC 4.84 M/CMM 4.20 - 5.40 08/11/2015 [facility] HEMATOLOGY Hgb 13.4 g/dL 12.0 - 16.0 08/11/2015 [facility] HEMATOLOGY MCH 27.8 pg 27.0 - 31.0 08/11/2015 [facility] MCV 86.6 fL 80.0 - 98.0 08/11/2015 [facility] Hct 41.9 % 36.0 - 48.0 08/11/2015 [facility] Platelet 349 K/CMM 133 - 450 08/11/2015 [facility] MCHC 32.0 g/dL 32.0 - 36.0 08/11/2015 [facility] RDW 13.5 % 11.5 - 14.5 08/11/2015 [facility] MPV 9.4 fL 7.4 - 10.4 08/11/2015 [facility] Chest 2 views DX Chest 2 views DX PA and lateral chest: The cardiac silhouette is enlarged. The aorta is tortuous. The cardiomediastinal silhouette, pulmonary vasculature and omar are otherwise within normal limits. There is linear subsegmental atelectasis in the anterior right middle lobe. The lungs and pleural spaces are otherwise clear. Degenerative changes in the thoracic spine are noted without acute osseous abnormalities. IMPRESSION: No acute radiographic abnormalities in the chest. [id number] 08/11/2015 - - Read by: Cezar Herrera MD Dictated Date/time: 08/12/15 07:13 Electronically Signed by: Cezar Herrera MD 08/12/15 07:14 FINAL REPORT [facility] Digital Mamm[facility] Scre[facility]amm[facility] Scre[facility] - DIGITAL MAMMO SCREENING [facility] BILATERAL DIGITAL SCREENING MAMMOGRAM WITH CAD: 07/18/2015 CLINICAL: Screening [place] 1950. Current study was evaluated with a Computer Aided Detection (CAD) system. Comparison is made to exams dated: 06/11/2014 mammogram and 05/29/2013 mammogram - [facility]. The tissue of both breasts is almost entirely fat. There is a benign intramammary node in the left breast. No significant masses, calcifications, or other findings are seen in either breast. There has been no significant interval change. IMPRESSION: BENIGN There is no mammographic evidence of malignancy. A 1 year screening mammogram is recommended. Aubrey Hinson M.D. dt/suyapa:07/22/2015 11:35:35 [employer]rup [employer] Cook: Kayley SHIRLEY(R)(M), [facility] This exam was dictated and interpreted by [id number] for [facility]. letter sent: Normal exam Mammogram BI-RADS: 2 Benign 07/18/2015 - - Read by: Aubrey Hinson Dictated Date/time: 07/22/15 11:35 Electronically Signed by: Aubrey Hinson 07/22/15 11:35 FINAL REPORT [facility] Chest 2 views DX Chest 2 views DX CHEST PA AND LATERAL History: 64-year-old physical exam. Comparison: 07/31/2014 Findings: The lungs are partial expanded and no infiltrate, mass or pleural effusion seen. The cardiomediastinal structures are within normal limits. Bilateral peribronchial opacities are stable Osseous structures osteopenic with thoracic and shoulder osteoarthritis. IMPRESSION: There is no active cardio pulmonary abnormality. Stable chest x-ray. 03/02/2015 - - Read by: Amado Rogers MD Dictated Date/time: 03/02/15 15:03 Electronically Signed by: Amado Rogers 03/02/15 15:05 FINAL REPORT [facility] Chest 2 views DX Chest 2 views DX CHEST 2 VIEWS dated 2014-07-31 15:00:00 COMPARISON: 10/02/2013 and 05/06/2013 CLINICAL INDICATION: 786.05 Shortness of Breath FINDINGS: Frontal and lateral chest radiographs are submitted for interpretation. The heart is normal in size. Mild chronic bilateral peribronchial wall thickening . No organized consolidation, pleural effusion or pneumothorax. Mild degenerative changes of the thoracic spine. Degenerative changes of the right glenohumeral joint. CONCLUSION: There has been no significant interval change in the radiographic appearance of the chest when compared to prior radiograph from September and April 2013. 07/31/2014 - - Read by: Ricardo Shipman MD Dictated Date/time: 08/01/14 11:18 Electronically Signed by: Ricardo Shipman 08/01/14 11:21 FINAL REPORT [facility] Shoulder series DX Shoulder series DX EXAM: Right shoulder HISTORY: Trauma right shoulder comparison: 05/06/2013. TECHNIQUE: 3 views right shoulder FINDINGS: Normal alignment of the right shoulder without fracture, dislocation or separation. Degenerative changes of the glenohumeral and acromioclavicular joints. SL: 14 10/30/2013 - - Read by: French Bowser MD Dictated Date/time: 10/30/13 21:28 Electronically Signed by: French Bowser MD 10/30/13 21:29 FINAL REPORT [facility] Chest 2 views Chest 2 views Chest x-ray 2 views INDICATION: Hypertension COMPARISON: 05/06/2013 FINDINGS: Heart is top normal in size, stable. Linear scarring in the left midlung zone is unchanged. There is no effusion or focal pneumonia. No pneumothorax. No acute osseous pathology. IMPRESSION: No acute cardiopulmonary process. Stable exam. 10/02/2013 - - Read by: Elizabeth Gonsales MD Dictated Date/time: 10/02/13 14:20 Electronically Signed by: Elizabeth Gonsales MD 10/02/13 14:20 FINAL REPORT [facility] Shoulder 2+ Views Bilateral Shoulder 2+ Views Bilateral Exam: Right and left shoulder x-rays, 3 views each Reason for Exam: Shoulder pain. Arthritis. Comparison Exam: None Discussion: Right: No acute bony abnormalities identified. Moderate osteoarthritis is seen involving the glenohumeral joint and AC joint. No suspicious osteoblastic or osteolytic lesions. Left: No acute bony abnormalities identified. Moderate osteoarthritis is seen involving the AC joint. No suspicious osteoblastic or osteolytic lesions. Impression: 1. 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 05/06/2013 - - Read by: Serg Escobedo Dictated Date/time: 05/06/13 13:55 Electronically Signed by: Serg Escobedo MD 05/06/13 13:59 FINAL REPORT [facility] Chest 2 views Chest 2 views CHEST RADIOGRAPHY CLINICAL HISTORY: Hypertension COMPARISON IMAGING: None. FINDINGS: Two views of the chest were acquired and submitted for evaluation. No pleural fluid is identified. The contour of the cardiac silhouette is within normal limits. There is no significant pulmonary consolidation or nodularity. Degenerative changes of the spine noted. IMPRESSION: No acute cardiopulmonary abnormality. 05/06/2013 - - Read by: Asiya Barillas Dictated Date/time: 05/06/13 13:26 Electronically Signed by: Asiya Barillas DO 05/06/13 13:27 FINAL REPORT [facility] Knee 1-2 Views Bilateral Knee 1-2 Views Bilateral BILATERAL KNEE SERIES CLINICAL HISTORY: Bilateral knee pain. COMPARISON IMAGING: None. FINDINGS: Four views of the knees were submitted for interpretation. Mild osteoarthritis is present, most prominent in the medial compartment. These changes include loss of joint space, subchondral sclerosis, and tiny marginal osteophytes. There is no fracture or dislocation. Soft tissues are unremarkable. No suspicious radiopaque foreign body. Small right suprapatellar joint effusion noted. IMPRESSION: 1. Mild bilateral osteoarthritis. 2. Small right suprapatellar joint effusion. 05/06/2013 - - Read by: Asiya Barillas Dictated Date/time: 05/06/13 13:31 Electronically Signed by: Asiya Barillas , DO 05/06/13 13:32 FINAL REPORT [facility] Vital Signs Vital Sign Value Date Comments Source Systolic (mm Hg) 104 08/18/2015 [facility] Diastolic (mm Hg) 60 08/18/2015 [facility] Temperature Oral (F) 97.9 F 08/18/2015 [facility] Heart Rate 69 08/18/2015 [facility] Respitory Rate 16 08/18/2015 [facility] Respitory Rate 16 08/18/2015 [facility] Respitory Rate 16 08/18/2015 [facility] Temperature Oral (F) 98.0 F 08/18/2015 [facility] Systolic (mm Hg) 116 08/18/2015 [facility] Diastolic (mm Hg) 67 08/18/2015 [facility] Heart Rate 65 08/18/2015 [facility] Systolic (mm Hg) 107 08/18/2015 [facility] Diastolic (mm Hg) 58 08/18/2015 [facility] Temperature Oral (F) 98.1 F 08/18/2015 [facility] Heart Rate 65 08/18/2015 [facility] BMI Calculated 50.37 08/11/2015 [facility] Weight 145.864 08/11/2015 [facility] Height 170.18 cm 08/11/2015 [facility] Height 170.18 cm 12/11/2014 [facility] BMI Calculated 51.17 12/11/2014 [facility] Weight 148.182 12/11/2014 [facility] Temperature Oral (F) 98.2 F 10/31/2013 [facility] Weight 147.727 10/31/2013 [facility] Diastolic (mm Hg) 70 10/31/2013 [facility] Heart Rate 74 10/31/2013 [facility] Systolic (mm Hg) 151 10/31/2013 [facility] Respitory Rate 20 10/31/2013 [facility] Systolic (mm Hg) 176 04/26/2013 [facility] Respitory Rate 18 04/26/2013 [facility] Heart Rate 77 04/26/2013 [facility] Diastolic (mm Hg) 83 04/26/2013 [facility] Temperature Oral (F) 97.5 F 04/26/2013 [facility] Weight 152.273 04/26/2013 [facility] BMI Calculated 52.58 04/26/2013 [facility] Height 170.18 cm 04/26/2013 [facility] Diastolic (mm Hg) 91 04/26/2013 [facility] Respitory Rate 18 04/26/2013 [facility] Temperature Oral (F) 97.6 F 04/26/2013 [facility] Heart Rate 79 04/26/2013 [facility] Systolic (mm Hg) 180 04/26/2013 [facility] Encounters Location Location Details Encounter Type Encounter Number Reason For Visit Attending Provider ADM Date DC Date Status Source [facility] [id number] _MAPID:[id number] Ronn Bailey 04/26/2013 04/26/2013 [facility] [place] [facility] [id number] _MAPID:[id number] Po Ingram 05/06/2013 05/07/2013 [facility] [place] [facility] [place] [facility] [id number] Po Ingram 10/02/2013 10/03/2013 [facility] [place] [facility] [id number] Ronn Bailey 10/31/2013 10/31/2013 [facility] [place] [facility] [id number] Jason Whaley 07/31/2014 08/01/2014 [facility] Outpatient [id number] Garcia Munguia 12/11/2014 12/12/2014 [facility] [place] [facility] [id number] Jason Whaley 03/02/2015 03/03/2015 [facility] [place] [facility] [place] [facility] [id number] Jason Whaley 07/18/2015 07/19/2015 [facility] [place] [facility] OBS Observation Patient [id number] Comfort Cory 08/17/2015 08/18/2015 [facility] [place] [facility] [id number] Jason Whaley 09/12/2016 09/13/2016 [facility] [place] [facility] [place] [facility] [id number] Jason Whaley 09/17/2016 09/18/2016 [facility] [place] [facility] [place] [facility] [id number] Jason Whaley 05/10/2017 05/11/2017 [facility] [place] [facility] [place] [facility] [id number] Pavan Cayenne 06/12/2017 06/13/2017 [facility] Procedures Procedure Code Date Perfomer Comments Source Carpal tunnel decompression 89640727 [facility] section [id number] [facility] Dilation and curettage [id number] [facility] Operation<sup>1</sup> [id number] removal of skin cancer [facility] Operation [id number] [facility] Carpal tunnel decompression [id number] [facility] section [id number] [facility] Dilation and curettage [id number] [facility] Operation<sup>1</sup> [id number] removal of skin cancer [facility] Operation [id number] [facility]
--- OUTSIDE RECORDS SUMMARY | 2018-02-22 06:08 | XMS REPORT | Summary of Care ---
Author Author [facility] Organization [facility] Address Unknown Phone Unavailable Encounter [facility]) [id number] Date(s): 08/17/15 - 08/18/15 [facility] [address] [place] [address]- [phone] Discharge Disposition: Home Attending Physician: Razia Ray MD Admitting Physician: Razia Ray MD Referring Physician: Razia Ray MD Vital Signs 1 2 3 Most recent to oldest [Reference Range]: 170.18 cm (08/11/15 4:10 PM) Height 97.9 DegF (08/18/15 12:24 PM) 98.0 DegF (08/18/15 7:46 AM) 98.1 DegF (08/18/15 4:43 AM) Temperature Oral [96.4-99.1 DegF] 104/60 mmHg (08/18/15 12:24 PM) 116/67 mmHg (08/18/15 7:46 AM) 107/58 mmHg (08/18/15 4:43 AM) Blood Pressure [90-140/60-90 mmHg] 16 BRMIN (08/18/15 12:24 PM) 16 BRMIN (08/18/15 8:49 AM) 16 BRMIN (08/18/15 7:46 AM) Respiratory Rate [14-20 BRMIN] 69 bpm (08/18/15 12:24 PM) 65 bpm (08/18/15 7:46 AM) 65 bpm (08/18/15 4:43 AM) Peripheral Pulse Rate [60-100 bpm] 145.864 kg (08/11/15 4:10 PM) Weight 50.37 m2 (08/11/15 4:10 PM) Body Mass Index Problem List Condition Effective Dates Status Health Status Informant Back pain(Confirmed) Resolved Cancer(Confirmed)1 Resolved Depression(Confirmed Active ) Diabetes Active mellitus(Confirmed) H/O abdominal Active hysterectomy(Confirm ed) Hypertension(Confirm Active ed) Rectal Active bleeding(Confirmed) 1skin cancer of nose Allergies, Adverse Reactions, Alerts Substance Reaction Severity Status NKDA Active Medications acetaminophen (ANES) (ANES) Route: IV, Drug form: INJ, Start date: 08/17/15 10:42:00 CDT, Stop date: 6 11:42:00 CDT Start Date: 08/17/15 Stop Date: 08/17/15 Status: Completed acetaminophen-hydrocodone 325 mg-5 mg oral tablet 2 tab, Route: PO, Drug Form: TAB, Dosing Weight 145.864, kg, Q4H, PRN Pain Score 4-6, Start date: 08/17/15 10:53:00 CDT, Duration: 30 day, Stop date: 09/16/15 1 0:52:00 CDT Notes: (Same as: [place] 325/5) Do not exceed 4gm/day of acetaminophen. Start Date: 08/17/15 Stop Date: 08/18/15 Status: Discontinued acetaminophen-hydrocodone 325 mg-5 mg oral tablet 1 tab, Route: PO, Drug Form: TAB, Dosing Weight 145.864, kg, Q4H, PRN Pain Score 1-3, Start date: 08/17/15 10:53:00 CDT, Duration: 30 day, Stop date: 09/16/15 1 0:52:00 CDT Notes: (Same as: [place] 325/5) Do not exceed 4gm/day of acetaminophen. Start Date: 08/17/15 Stop Date: 08/18/15 Status: Discontinued ANES fentaNYL 50 microgram, Route: IVP, Q5Min, Dosing Weight 145.864, kg, PRN Pain Score 7-10, Start date: 08/17/15 11:32:00 CDT, Duration: 2 doses or times, Stop date: Limit ed # of times Start Date: 08/17/15 Stop Date: 08/17/15 Status: Discontinued ANES fentaNYL 25 microgram, Route: IVP, Q5Min, Dosing Weight 145.864, kg, PRN Pain Score 4-6, Start date: 08/17/15 11:32:00 CDT, Duration: 4 doses or times, Stop date: Limite d # of times Start Date: 08/17/15 Stop Date: 08/17/15 Status: Discontinued ANES flumazenil 0.2 mg, Route: IVP, PRN, Dosing Weight 145.864, kg, PRN Benzodiazepine Reversal, Initial dose, Start date: 08/17/15 11:32:00 CDT, Duration: 30 day, Stop date: 0 09/16/15 11:31:00 CDT Start Date: 08/17/15 Stop Date: 08/17/15 Status: Discontinued ANES hydrALAZINE 10 mg, Route: IVP, Q20Min, Dosing Weight 145.864, kg, PRN Elevated BP, Start ant e: 08/17/15 11:32:00 CDT, Duration: 2 doses or times, Stop date: Limited # of ti mes Start Date: 08/17/15 Stop Date: 08/17/15 Status: Discontinued ANES HYDROmorphone 0.5 mg, Route: IVP, Q5Min, Dosing Weight 145.864, kg, PRN Pain Score 7-10, Start date: 08/17/15 11:32:00 CDT, Duration: 4 doses or times, Stop date: Limited # of times Start Date: 08/17/15 Stop Date: 08/17/15 Status: Discontinued ANES labetalol 10 mg, Route: IVP, Q5Min, Dosing Weight 145.864, kg, PRN Elevated BP, Start date : 08/17/15 11:32:00 CDT, Duration: 5 doses or times, Stop date: Limited # of eva es Start Date: 08/17/15 Stop Date: 08/17/15 Status: Discontinued ANES naloxone 0.4 mg, Route: IVP, Q2MIN, Dosing Weight 145.864, kg, PRN Narcotic Reversal, Sta rt date: 08/17/15 11:32:00 CDT, Duration: 8 doses or times, Stop date: Limited # of times Start Date: 08/17/15 Stop Date: 08/17/15 Status: Discontinued ANES ondansetron 4 mg, Route: IVP, ONCE, Dosing Weight 145.864, kg, PRN Nausea & Vomiting, Start date: 08/17/15 11:32:00 CDT Start Date: 08/17/15 Stop Date: 08/17/15 Status: Discontinued ANES oxyCODONE 5 mg, Route: PO, Drug form: TAB, Q4H, Dosing Weight 145.864, kg, PRN Pain Score 4-6, Start date: 08/17/15 11:32:00 CDT, Duration: 30 day, Stop date: 09/16/15 11 :31:00 CDT Start Date: 08/17/15 Stop Date: 08/17/15 Status: Discontinued ANES oxyCODONE 10 mg, Route: PO, Drug form: TAB, Q4H, Dosing Weight 145.864, kg, PRN Pain Score 7-10, Start date: 08/17/15 11:32:00 CDT, Duration: 30 day, Stop date: 09/16/15 11:31:00 CDT Start Date: 08/17/15 Stop Date: 08/17/15 Status: Discontinued ceFAZolin (ANES) (ANES) Route: IV, Drug form: INJ, Start date: 08/17/15 7:45:00 CDT, Stop date: 08/17/15 8:45:00 CDT Start Date: 08/17/15 Stop Date: 08/17/15 Status: Completed Dextrose 50% Syringe 25 gm, 50 mL, Route: IVP, Drug Form: INJ, Dosing Weight 145.864, kg, PRN, PRN Bl ood Glucose Results, Start date: 08/17/15 13:22:00 CDT, Duration: 30 day, Stop d ate: 09/16/15 13:21:00 CDT Start Date: 08/17/15 Stop Date: 08/18/15 Status: Discontinued Dextrose 50% Syringe 12.5 gm, 25 mL, Route: IVP, Drug Form: INJ, Dosing Weight 145.864, kg, PRN, PRN Blood Glucose Results, Start date: 08/17/15 13:22:00 CDT, Duration: 30 day, Stop date: 09/16/15 13:21:00 CDT Start Date: 08/17/15 Stop Date: 08/18/15 Status: Discontinued docusate 100 mg, 1 cap, Route: PO, Drug form: CAP, BID, Dosing Weight 145.864, kg, PRN Co nstipation, Start date: 08/17/15 10:53:00 CDT, Duration: 30 day, Stop date: 09/06 10:52:00 CDT Notes: (Same as: Colace) (Do Not Crush) Start Date: 08/17/15 Stop Date: 08/18/15 Status: Discontinued fentaNYL (ANES) Route: IV, Drug form: INJ, ONCE, Stop date: 08/17/15 8:47:00 CDT Start Date: 08/17/15 Stop Date: 08/17/15 Status: Completed furosemide 40 mg oral tablet 40 mg=1 tab, PO, Daily, 0 Refill(s) Start Date: 08/11/15 Status: Ordered glipiZIDE-metformin 5 mg-500 mg oral tablet 1 tab, PO, BID, 0 Refill(s) Start Date: 08/11/15 Status: Ordered glucagon 1 mg, Route: IM, Drug form: PDR/INJ, PRN, Dosing Weight 145.864, kg, PRN Blood G lucose Results, Start date: 08/17/15 13:22:00 CDT, Duration: 30 day, Stop date: 09/16/15 13:21:00 CDT Start Date: 08/17/15 Stop Date: 08/18/15 Status: Discontinued glycopyrrolate (ANES) Route: IV, Drug form: INJ, ONCE, Stop date: 08/17/15 11:17:00 CDT Start Date: 08/17/15 Stop Date: 08/17/15 Status: Completed hydrocortisone topical 1% cream 1 appl, TOP, TID, 0 Refill(s) Start Date: 08/11/15 Status: Ordered hydromorphone (ANES) Route: IV, Drug form: INJ, ONCE, Stop date: 08/17/15 9:27:00 CDT Start Date: 08/17/15 Stop Date: 08/17/15 Status: Completed ibuprofen 800 mg oral tablet 800 mg=1 tab, PO, Q8H, PRN Pain, Take with food, # 30 tab, 0 Refill(s) Start Date: 08/18/15 Status: Ordered insulin aspart 6 unit, 0.06 mL, Route: SUB-Q, Drug form: SOLN, TID-Before Meals, Dosing Weight 145.864, kg, PRN Blood Glucose Results, Start date: 08/17/15 13:22:00 CDT, Durat ion: 30 day, Stop date: 09/16/15 13:21:00 CDT Notes: Roll in palms of hands gently; Do not shake vigorously. (Same as: Ann Marie Lobo)"single patient use only"WASTE: F/P - Black; E - Municipal Trash Bin Stable f or 28 days at room temperature.Expires in days from Date Start Date: 08/17/15 Stop Date: 08/18/15 Status: Discontinued insulin aspart 3 unit, 0.03 mL, Route: SUB-Q, Drug form: SOLN, TID-Before Meals, Dosing Weight 145.864, kg, PRN Blood Glucose Results, Start date: 08/17/15 13:22:00 CDT, Durat ion: 30 day, Stop date: 09/16/15 13:21:00 CDT Notes: Roll in palms of hands gently; Do not shake vigorously. (Same as: Ann Marie Lobo)"single patient use only"WASTE: F/P - Black; E - Municipal Trash Bin Stable f or 28 days at room temperature.Expires in days from Date Start Date: 08/17/15 Stop Date: 08/18/15 Status: Discontinued insulin aspart 15 unit, 0.15 mL, Route: SUB-Q, Drug form: SOLN, TID-Before Meals, Dosing Weight 145.864, kg, PRN Blood Glucose Results, Start date: 08/17/15 13:22:00 CDT, Dura tion: 30 day, Stop date: 09/16/15 13:21:00 CDT Notes: Roll in palms of hands gently; Do not shake vigorously. (Same as: Ann Marie Lobo)"single patient use only"WASTE: F/P - Black; E - Municipal Trash Bin Stable f or 28 days at room temperature.Expires in days from Date Start Date: 08/17/15 Stop Date: 08/18/15 Status: Discontinued insulin aspart 12 unit, 0.12 mL, Route: SUB-Q, Drug form: SOLN, TID-Before Meals, Dosing Weight 145.864, kg, PRN Blood Glucose Results, Start date: 08/17/15 13:22:00 CDT, Dura tion: 30 day, Stop date: 09/16/15 13:21:00 CDT Notes: Roll in palms of hands gently; Do not shake vigorously. (Same as: Ann Marie Lobo)"single patient use only"WASTE: F/P - Black; E - Municipal Trash Bin Stable f or 28 days at room temperature.Expires in days from Date Start Date: 08/17/15 Stop Date: 08/18/15 Status: Discontinued insulin aspart 9 unit, 0.09 mL, Route: SUB-Q, Drug form: SOLN, TID-Before Meals, Dosing Weight 145.864, kg, PRN Blood Glucose Results, Start date: 08/17/15 13:22:00 CDT, Durat ion: 30 day, Stop date: 09/16/15 13:21:00 CDT Notes: Roll in palms of hands gently; Do not shake vigorously. (Same as: Ann Marie Lobo)"single patient use only"WASTE: F/P - Black; E - Municipal Trash Bin Stable f or 28 days at room temperature.Expires in days from Date Start Date: 08/17/15 Stop Date: 08/18/15 Status: Discontinued insulin detemir 35 unit, 0.35 mL, Route: SUB-Q, Drug form: INJ, Bedtime, Dosing Weight 145.864, kg, Start date: 08/17/15 21:00:00 CDT, Duration: 30 day, Stop date: 09/15/15 21: 00:00 CDT Notes: Same as Fariha not hold insulin without contacting prescriberWASTE: F/ P - Black; E - Municipal Trash Bin "single patient use only" Start Date: 08/17/15 Stop Date: 08/18/15 Status: Discontinued Insulin regular 10 unit, Route: IV, ONCE, Dosing Weight 145.864, kg, Start date: 08/17/15 11:46: 00 CDT, Stop date: 08/17/15 11:46:00 CDT Start Date: 08/17/15 Stop Date: 08/17/15 Status: Completed Insulin regular 6 unit, Route: IV, ONCE, Dosing Weight 145.864, kg, Start date: 08/17/15 7:13:00 CDT, Stop date: 08/17/15 7:13:00 CDT Start Date: 08/17/15 Stop Date: 08/17/15 Status: Completed ketOROLAC 30 mg, 1 mL, Route: IVP, Drug form: INJ, Q6H, Dosing Weight 145.864, kg, Start d ate: 08/17/15 12:00:00 CDT, Duration: 4 day, Stop date: 08/21/15 6:00:00 CDT Notes: (Same as:Toradol) IV bolus must be given >15 seconds. Give IM administration slowly and deeply into the muscle.Not for use > 4 days MEDICATION WASTE Product Size: 30 mgProduct Wasted: ___ mg Start Date: 08/17/15 Stop Date: 08/18/15 Status: Discontinued ketOROLAC (ANES) IV, ONCE Start Date: 08/17/15 Stop Date: 08/17/15 Status: Completed Lactated Ringers 1,000 mL 1,000 mL, Rate: 125 ml/hr, Infuse over: 8 hr, Route: IV, Dosing Weight 145.864 k g, Total Volume: 1,000, Start date: 08/17/15 10:53:00 CDT, Duration: 30 day, Sto p date: 09/16/15 10:52:00 CDT Start Date: 08/17/15 Stop Date: 08/18/15 Status: Discontinued Lactated Ringers Injection IV 1000 mL 1,000 mL, Rate: 25 ml/hr, Infuse over: 40 hr, Route: IV, Dosing Weight 145.864 k g, Total Volume: 1,000, Start date: 08/17/15 7:25:00 CDT, Duration: 30 day, Stop date: 09/16/15 7:24:00 CDT Start Date: 08/17/15 Stop Date: 08/17/15 Status: Discontinued Lantus Route: SUB-Q, Bedtime, Dosing Weight 145.864, kg, Start date: 08/17/15 21:00:00 CDT, Duration: 30 day, Stop date: 09/15/15 21:00:00 CDT Start Date: 08/17/15 Stop Date: 08/17/15 Status: Deleted Lantus 30 units, SUB-Q, Bedtime, 0 Refill(s) Start Date: 08/11/15 Status: Ordered Levemir FlexPen 35 unit, 0.35 mL, Route: SUB-Q, Drug form: INJ, Bedtime, Start date: 08/17/15 21 :00:00 CDT, Stop date: 09/15/15 21:00:00 CDT Notes: Same as LevemirDo not hold insulin without contacting prescriberWASTE: F/ P - Black; E - Municipal Trash Bin "single patient use only" Start Date: 08/17/15 Stop Date: 08/17/15 Status: Discontinued lidocaine (ANES) Route: IV, Drug form: INJ, ONCE, Stop date: 08/17/15 8:52:00 CDT Start Date: 08/17/15 Stop Date: 08/17/15 Status: Completed LR 1000 mL INJ (ANES) Route: IV, Total Volume: 1,000, Start date: 08/17/15 7:40:00 CDT, Stop date: 12/22 8:40:00 CDT Start Date: 08/17/15 Stop Date: 08/17/15 Status: Completed metFORMIN 1,000 mg, BID, 0 Refill(s) Start Date: 08/11/15 Status: Ordered metoclopramide (ANES) Route: IV, Drug form: INJ, ONCE, Stop date: 08/17/15 8:47:00 CDT Start Date: 08/17/15 Stop Date: 08/17/15 Status: Completed midazolam (ANES) Route: IV, Drug form: SOLN, ONCE, Stop date: 08/17/15 8:47:00 CDT Start Date: 08/17/15 Stop Date: 08/17/15 Status: Completed morphine Sulfate 2 mg, 1 mL, Route: IVP, Drug form: INJ, Q3H, Dosing Weight 145.864, kg, PRN Pain Score 1-3, Start date: 08/17/15 10:53:00 CDT, Duration: 30 day, Stop date: 09/06 10:52:00 CDT Notes: (Same as:MORPhine Sulfate) Start Date: 08/17/15 Stop Date: 08/18/15 Status: Discontinued neostigmine (ANES) Route: IV, Drug form: INJ, ONCE, Stop date: 08/17/15 11:17:00 CDT Start Date: 08/17/15 Stop Date: 08/17/15 Status: Completed ondansetron 4 mg, 2 mL, Route: IVP, Drug form: INJ, Q6H, Dosing Weight 145.864, kg, PRN Naus ea & Vomiting, Start date: 08/17/15 10:53:00 CDT, Duration: 30 day, Stop date: 09/16/15 10:52:00 CDT Notes: (Same as: Nataliia) MEDICATION WASTE Product Size: 4 mgProduct Was randy: ___ mg Start Date: 08/17/15 Stop Date: 08/18/15 Status: Discontinued ondansetron (ANES) Route: IV, Drug form: INJ, ONCE, Stop date: 08/17/15 11:17:00 CDT Start Date: 08/17/15 Stop Date: 08/17/15 Status: Completed pioglitazone 15 mg oral tablet 15 mg=1 tab, PO, Daily, 0 Refill(s) Start Date: 08/11/15 Status: Ordered ProAir RespiClick See Instructions, 2 puff INHALATION Q4H, 0 Refill(s) Start Date: 08/11/15 Status: Ordered Proctozone HC 2.5% topical cream 1 appl, TOP, TID, 0 Refill(s) Start Date: 08/11/15 Status: Ordered propofol (ANES) Route: IV, Drug form: INJ, ONCE, Stop date: 08/17/15 8:52:00 CDT Start Date: 08/17/15 Stop Date: 08/17/15 Status: Completed rocuronium (ANES) Route: IV, Drug form: INJ, ONCE, Stop date: 08/17/15 8:52:00 CDT Start Date: 08/17/15 Stop Date: 08/17/15 Status: Completed rOPINIRole 1 mg, 1 tab, Route: PO, Drug form: TAB, TID, Dosing Weight 145.864, kg, Start da te: 08/17/15 17:00:00 CDT, Duration: 30 day, Stop date: 09/16/15 13:00:00 CDT Notes: (Same as: Requip) Start Date: 08/17/15 Stop Date: 08/18/15 Status: Discontinued rOPINIRole 1 mg oral tablet 1 mg=1 tab, PO, TID, 0 Refill(s) Start Date: 08/11/15 Status: Ordered sertraline 50 mg, 1 tab, Route: PO, Drug form: TAB, Daily, Dosing Weight 145.864, kg, Start date: 08/18/15 9:00:00 CDT, Duration: 30 day, Stop date: 09/16/15 9:00:00 CDT Notes: (Same as: Zoloft) Start Date: 08/18/15 Stop Date: 08/18/15 Status: Discontinued sertraline 50 mg oral tablet 50 mg=1 tab, PO, Daily, 0 Refill(s) Start Date: 08/11/15 Status: Ordered simvastatin 20 mg, 1 tab, Route: PO, Drug form: TAB, Bedtime, Dosing Weight 145.864, kg, Sta rt date: 08/17/15 21:00:00 CDT, Duration: 30 day, Stop date: 09/15/15 21:00:00 C DT Notes: (Same as: Zocor) Start Date: 08/17/15 Stop Date: 08/18/15 Status: Discontinued simvastatin 20 mg oral tablet 20 mg=1 tab, PO, Bedtime, 0 Refill(s) Start Date: 08/11/15 Status: Ordered tramadol 50 mg oral tablet 50 mg=1 tab, PO, TID, 0 Refill(s) Start Date: 08/11/15 Stop Date: 08/18/15 Status: Discontinued tramadol 50 mg oral tablet See Instructions, 1 - 2 tabs PO Q4H as needed, 0 Refill(s) Start Date: 08/11/15 Stop Date: 08/18/15 Status: Discontinued Tudorza Pressair 400 mcg/inh inhalation powder =1 puff, INHALER, BID, # 1 ea, 3 Refill(s) Start Date: 08/11/15 Status: Ordered valsartan 160 mg, 1 tab, Route: PO, Drug form: TAB, Daily, Dosing Weight 145.864, kg, Star t date: 08/18/15 9:00:00 CDT, Duration: 30 day, Stop date: 09/16/15 9:00:00 CDT Notes: Same as Diovan Start Date: 08/18/15 Stop Date: 08/18/15 Status: Discontinued valsartan 160 mg oral tablet 160 mg=1 tab, PO, Daily, 0 Refill(s) Start Date: 08/11/15 Status: Ordered Vitamin D3 2000 intl units oral tablet 2,000 IntlUnit, 2 tab, Route: PO, Drug form: TAB, Daily, Dosing Weight 145.864, kg, Start date: 08/18/15 9:00:00 CDT, Duration: 30 day, Stop date: 09/16/15 9:00 :00 CDT Notes: Same as : Vitamin D3 Start Date: 08/18/15 Stop Date: 08/18/15 Status: Discontinued Vitamin D3 2000 intl units oral tablet 2,000 IntlUnit=1 tab, PO, Daily, 0 Refill(s) Start Date: 08/11/15 Status: Ordered Results BLOOD BANK RESULTS Most recent to 1 oldest [Reference Range]: ABO/Rh O POS *Unknown* (08/17/15 7:10 AM) Antibody Scrn Negative (08/17/15 7:10 AM) ELECTROLYTES Most recent to 1 2 oldest [Reference Range]: Sodium Lvl [135-145 138 mEq/L mEq/L] (08/11/15 5:17 PM) Potassium Lvl 4.0 mEq/L [3.5-5.1 mEq/L] (08/11/15 5:17 PM) Chloride Lvl [95-109 102 mEq/L mEq/L] (08/11/15 5:17 PM) CO2 [24-32 mEq/L] 29 mEq/L (08/11/15 5:17 PM) AGAP [10.0-20.0 11.0 mEq/L mEq/L] (08/11/15 5:17 PM) CHEM PANEL Most recent to 1 2 oldest [Reference Range]: Creatinine Lvl 1.05 mg/dL [0.50-1.40 mg/dL] (08/11/15: PM) eGFR 56 mL/min/1.73m2 1 *NA* (08/11/15: PM) BUN [7-22 mg/dL] 17 mg/dL (08/11/15:17 PM) B/C Ratio [6-25] 16 (08/11/15: PM) Glucose Lvl [70-99 289 mg/dL mg/dL] *HI* (08/11/15: PM) Total Protein 7.0 g/dL [6.4-8.4 g/dL] (08/11/15: PM) Albumin Lvl [3.5-5.0 3.2 g/dL g/dL] *LOW* (08/11/15 PM) Globulin [2.0-4.0 3.8 g/dL g/dL] (08/11/15: PM) A/G Ratio [0.7-1.6] 0.8 (08/11/15: PM) Calcium Lvl 8.4 mg/dL [8.5-10.5 mg/dL] *LOW* (08/11/15:17 PM) ALT [0-65 unit/L] 18 unit/L (08/11/15:17 PM) AST [0-37 unit/L] 8 unit/L (08/11/15: PM) Alk Phos [39-136 104 unit/L unit/L] (08/11/15: PM) Bili Total [0.2-1.3 0.1 mg/dL mg/dL] *LOW* (08/11/15:17 PM) 1Result Comment: The eGFR is calculated using the [...] from the National Kidney Disease Education Program ( NKDEP) which additionally recommends that when the eGFR is used in patients with extremes of body mass index for purposes of drug dosing, the eGFR should be mul tiplied by the estimated BMI. SPECIAL CHEMISTRY Most recent to 1 2 oldest [Reference Range]: Hgb A1C [<=5.6 %] 10.2 % *HI* (08/17/15 5:30 PM) HEMATOLOGY Most recent to 1 2 oldest [Reference Range]: WBC [3.7-10.4 K/CMM] 10.9 K/CMM *HI* (08/11/15:17 PM) RBC [4.20-5.40 4.84 M/CMM M/CMM] (08/11/15: PM) Hgb [12.0-16.0 g/dL] 11.7 g/dL 13.4 g/dL *LOW* (08/11/15:17 PM) (08/18/15 5:31 AM) Hct [36.0-48.0 %] 36.7 % 41.9 % (08/18/15 5:31 AM) (08/11/15:17 PM) MCV [80.0-98.0 fL] 86.6 fL (08/11/15: PM) MCH [27.0-31.0 pg] 27.8 pg (08/11/15: PM) MCHC [32.0-36.0 32.0 g/dL g/dL] (08/11/15: PM) RDW [11.5-14.5 %] 13.5 % (08/11/15 5:17 PM) Platelet [133-450 349 K/CMM K/CMM] (08/11/15:17 PM) MPV [7.4-10.4 fL] 9.4 fL (08/11/15:17 PM) Segs [45.0-75.0 %] 73.7 % (08/11/15: PM) Lymphocytes 17.0 % [20.0-40.0 %] *LOW* (08/11/15 5:17 PM) Monocytes [2.0-12.0 5.9 % %] (08/11/15 5:17 PM) Eosinophils [0.0-4.0 2.5 % %] (08/11/15 5:17 PM) Basophils [0.0-1.0 0.9 % %] (08/11/15 5:17 PM) Segs-Bands # 8.0 K/CMM [1.5-8.1 K/CMM] (08/11/15 5:17 PM) Lymphocytes # 1.9 K/CMM [1.0-5.5 K/CMM] (08/11/15 5:17 PM) Monocytes # [0.0-0.8 0.6 K/CMM K/CMM] (08/11/15 5:17 PM) Eosinophils # 0.3 K/CMM [0.0-0.5 K/CMM] (08/11/15 5:17 PM) Basophils # [0.0-0.2 0.1 K/CMM K/CMM] (08/11/15 5:17 PM) Immunizations No data available for this section Procedures Procedure Date Related Diagnosis Body Site Carpal tunnel decompression section Dilation and curettage Operation1 Operation 1removal of skin cancer Social History Social History Type Response Substance Abuse Use: None. Alcohol Never Smoking Status Never smoker; Exposure to Tobacco Smoke None; Cigarette Smoking Last 365 Days No; Reg Smoking Cessation Counseling No Assessment and Plan Extracted from: Title: Progress note/discharge Author: Razia Ray MD Date: 08/18/15 summary Progress Note - Daily [facility] Completed: Aug, 12:06 by Razia Ray MD RM: [address] - [address], SE [id number] (: 1950) F Attending: Razia Ray MDPhone: Service: [employer] Service Reason for Admission: LAP TOTAL HYST Working DRG: None Documented Code status: Full Code [Ordered]Current diet: Isolation: None Documented Allergies: NKDA SUBJECTIVE Pain well controlled. Ambulating. Tolerating PO. 24hr Labs 08/17 0750 Glucose [id number] H 08/17 0531 Hgb11.7 L Hct36.7 08/16 2129 Glucose ZKC116 H 08/16 1730 Hgb A1C10.2 H 08/16 1714 Glucose EQQ886 H 08/16 1509 Glucose PZG954 H 08/16 1335 Glucose DRL915 H 08/16 1228 Glucose KDX210 H Sosa still necessary (Yes/No): Line still necessary (Yes/No): VitalsTmp(F)[id number] 08/17 08:49 1695 21% 08/17 07:4698.414671/6716------ 08/17 04:4398.714685/5820------ 08/17 02:09 97 32% 08/16 23:52 100 32% 24 Hr Tmax: 98.1F (36.72c) at 08/17 04:43Vital Signs are the last 5 in the past 48 hours. DateWt(kg)Wt(lb)Ht(cm)Ht(in)Method 08/10 (initial)145.86 320.90Measured 08/10170.18 67.00Stated I&ORecordInOutBal 08/1223hr Tot 0 0 0 08/1123hr Tot 4269 1350 2919 Medications (33) Active Scheduled Meds (7): 08/18/15 cholecalciferol (Vitamin D3 2000 intl units oral tablet) 2,000 IntlUnit PO Daily 08/17/15 insulin detemir 35 unit SUB-Q Bedtime 08/17/15 ketOROLAC 30 mg IVP Q6H 08/17/15 rOPINIRole 1 mg PO TID 08/18/15 sertraline 50 mg PO Daily 08/17/15 simvastatin 20 mg PO Bedtime 08/18/15 valsartan 160 mg PO Daily Unscheduled Meds: None PRN Meds (13): 08/17/15 Dextrose 50% in Water IV (Dextrose 50% Syringe) 12.5 gm IVP PRN 08/17/15 Dextrose 50% in Water IV (Dextrose 50% Syringe) 25 gm IVP PRN 08/17/15 acetaminophen-hydrocodone (acetaminophen-hydrocodone 325 mg-5 mg oral tablet) 1 tab PO Q4H 08/17/15 acetaminophen-hydrocodone (acetaminophen-hydrocodone 325 mg-5 mg oral tablet) 2 tab PO Q4H 08/17/15 docusate 100 mg PO BID 08/17/15 glucagon 1 mg IM PRN 08/17/15 insulin aspart 3 unit SUB-Q TID-Before Meals 08/17/15 insulin aspart 6 unit SUB-Q TID-Before Meals 08/17/15 insulin aspart 9 unit SUB-Q TID-Before Meals 08/17/15 insulin aspart 12 unit SUB-Q TID-Before Meals 08/17/15 insulin aspart 15 unit SUB-Q TID-Before Meals 08/17/15 morphine Sulfate 2 mg IVP Q3H 08/17/15 ondansetron 4 mg IVP Q6H One Time Meds (13): 08/17/15 (Completed) Insulin regular 6 unit IV ONCE 08/17/15 (Completed) Insulin regular 10 unit IV ONCE (Completed) fentaNYL (fentaNYL (ANES)) IV ONCE (Completed) glycopyrrolate (glycopyrrolate (ANES)) IV ONCE (Completed) hydromorphone (hydromorphone (ANES)) IV ONCE (Completed) ketOROLAC (ketOROLAC (ANES)) IV ONCE (Completed) lidocaine (lidocaine (ANES)) IV ONCE (Completed) metoclopramide (metoclopramide (ANES)) IV ONCE (Completed) midazolam (midazolam (ANES)) IV ONCE (Completed) neostigmine (neostigmine (ANES)) IV ONCE (Completed) ondansetron (ondansetron (ANES)) IV ONCE (Completed) propofol (propofol (ANES)) IV ONCE (Completed) rocuronium (rocuronium (ANES)) IV ONCE Continuous Infusions: None ASSESSMENT & EXAM POD#1 s/p TLH/BSO Uncontrolled diabetes PLAN & TREATMENT Meeting all surgical milestones. Ready to d/c home. Appreciate consult from Dr. Daugherty. Pt to f/u with her PCP as an outpatient for glucose control F/u in 2 weeks for post-op visit Diabetic diet Extracted from: Title: Brief Op Note Author: Razia Ray MD Date: 08/17/15 Pre-op diagnosis: persistent postmenopausal bleeding Post-op dx: same Procedure: TLH/BSO, lysis of adhesions Surgeon: Razia Ray Assistent: Roberth Hoffman Anesthesia: general EBL: 150cc Findings: Normal adnexa, adhesions of bladder to anterio abdominal wall, adhesions of upper omentum to anterior abdominal wall Path: cerxi, uterus, bilateral adnexa Dispo: stable to PACU
--- OUTSIDE RECORDS SUMMARY | 2018-02-22 06:08 | XMS REPORT | Summary of Care ---
Author Author [facility] [place] Organization [facility] [place] Address Unknown Phone Unavailable Encounter HQ Roel([facility]) [phone] Date(s): 09/12/16 - 09/12/16 [facility] [place] [address] [place] [address] [phone] Discharge Disposition: Home or Self Care Attending Physician: Jason Whaley MD Vital Signs No data available for this section Problem List Condition Effective Dates Status Health Status Informant Back pain(Confirmed) Resolved Depression(Confirmed Active ) Diabetes Active mellitus(Confirmed) H/O abdominal Active hysterectomy(Confirm ed) Hypertension(Confirm Active ed) Rectal Active bleeding(Confirmed) Allergies, Adverse Reactions, Alerts Substance Reaction Severity Status NKDA Active Medications No data available for this section Results No data available for this section Immunizations [...] Smoking Cessation Counseling No Assessment and Plan No data available for this section
--- OUTSIDE RECORDS SUMMARY | 2018-02-22 06:08 | XMS REPORT | Summary of Care ---
Author Author [facility] Organization [facility] Address Unknown Phone Unavailable Encounter HQ Roel([facility]) [phone] Date(s): 12/11/14 - 12/11/14 [facility] [address] [place] [address]- Discharge Disposition: Home Attending Physician: Garcia Munguia MD Admitting Physician: Garcia Munguia MD Referring Physician: Garcia Munguia MD Vital Signs Most recent to 1 oldest [Reference Range]: Height 170.18 cm (12/11/14 10:28 AM) Weight 148.182 kg (12/11/14 10:28 AM) Body Mass Index 51.17 m2 (12/11/14 10:28 AM) Problem List Condition Effective Dates Status Health Status Informant Back pain(Confirmed) Resolved Cancer(Confirmed)1 Resolved Diabetes Active mellitus(Confirmed) Hypertension(Confirm Active ed) 1skin cancer of nose Allergies, Adverse Reactions, Alerts Substance Reaction Severity Status NKDA Active Medications No data available for this section Results No data available for this section Immunizations No data available for this section Procedures No data available for this section Social History Social History Type Response Smoking Status Never smoker; Concerns about tobacco use in household: No; Exposure to Tobacco Smoke None; Cigarette Smoking Last 365 Days No; Reg Smoking Cessation Counseling No Assessment and Plan No data available for this section
--- OUTSIDE RECORDS SUMMARY | 2018-02-22 06:08 | XMS REPORT | Summary of Care ---
Author Author [facility] [place] Organization [facility] [place] Address Unknown Phone Unavailable Encounter HQ Roel([facility]) [phone] Date(s): 05/10/17 - 05/10/17 [facility] [place] [address] [place] [address]- [phone] Encounter Diagnosis Pain in left shoulder (Final) - 05/17/17 Discharge Disposition: Home or Self Care Attending Physician: Jason Whaley MD Vital Signs No data available for this section Problem List Condition Effective Dates Status Health Status Informant Back pain(Confirmed) Resolved Diabetes Active mellitus(Confirmed) H/O abdominal Active hysterectomy(Confirm ed) Hypertension(Confirm Active ed) Rectal Active bleeding(Confirmed) Allergies, Adverse Reactions, Alerts Substance Reaction Severity Status NKDA Active Medications No data available for this section Results No data available for this section Immunizations No data available for this section Procedures Procedure Date Related Diagnosis Body Site Status Carpal tunnel decompression Completed section Completed Dilation and curettage Completed Operation1 Completed Operation Completed 1removal of skin cancer Social History Social History Type Response Substance Abuse Use: None. Alcohol Never Smoking Status Never smoker; Exposure to Tobacco Smoke None; Cigarette Smoking Last 365 Days No; Reg Smoking Cessation Counseling No entered on: 08/17/15 Assessment and Plan No data available for this section
--- OUTSIDE RECORDS SUMMARY | 2018-02-22 06:08 | XMS REPORT | Summary of Care ---
Author Author [facility] [place] Organization [facility] [place] Address Unknown Phone Unavailable Encounter HQ Roel([facility]) [phone] Date(s): 09/17/16 - 09/17/16 [facility] [place] [address] [place] [address] [phone] Discharge Disposition: Home or Self Care Attending [...]
--- OUTSIDE RECORDS SUMMARY | 2018-02-22 06:08 | XMS REPORT | Summary of Care ---
Author Author [facility] [place] Organization [facility] [place] Address Unknown Phone Unavailable Encounter HQ Cristian_black([place]) [phone] Date(s): 07/18/15 - 07/18/15 [facility] [place] [address] [place], [place] [id number] [place] [address] [phone] Discharge Disposition: Home Attending Physician: Jason Whaley MD Vital Signs [...]
--- OUTSIDE RECORDS SUMMARY | 2018-02-22 06:08 | XMS REPORT | Summary of Care ---
Author Author [facility] - [place] Organization [facility] [place] Address Unknown Phone Unavailable Encounter HQ Roel([facility]) [phone] Date(s): 06/12/17 - 06/12/17 [facility] [place] [address] [place] [address]- [phone] Discharge Disposition: Home or Self Care Attending Physician: Pavan Magana MD Vital Signs No data available for [...]
--- OUTSIDE RECORDS SUMMARY | 2018-02-22 06:08 | XMS REPORT ---
Author [facility] Address Unknown Phone Unavailable Care Team Providers Care Last Trimmer Name Role Phone RENAE RUIZ Unavailable Unavailable FLASH JORDAN Unavailable Unavailable Payers Payer Name Policy Type Policy Number Effective Date Expiration Date Problems This patient has no known problems. Allergies, Adverse Reactions, Alerts Allergy Name Allergy Type Status Severity Reaction(s) Onset Date Inactive Date Treating Clinician Comments No Known Allergies DA Active U 2016-08-05 00:00:00 Medications This patient has no known medications. Results Test Description Test Time Test Comments Text Results Atomic Results Result Comments Stress Test - Treadmill ONLY 2017-07-19 13:06:[address] [address] Patient Name : ANTONIO MILLIGAN MR #: [id number] : 1950 Age/Sex: 67/F Adm Physician : RENAE RUIZ MD Admit Date : Location : [place] Room/Bed : REPORT: Cardiology Report DATE OF STUDY: July 18, 2017 LEXISCAN NUCLEAR STRESS TEST INDICATIONS: Chest pain. DESCRIPTION OF PROCEDURE: After informed consent, the patient was brought to the stress lab. She was given 11 mCi of technetium 99 Myoview, and myocardial perfusion SPECT images were obtained in the horizontal long and short axis and vertical long axis. Subsequently, the patient was given 0.4 mg of Lexiscan over 10 seconds. Patient was given 33 mCi of technetium 99 Myoview intravenously, and myocardial perfusion SPECT images were obtained in horizontal long axis and short axis and vertical long axis. Gated images were also obtained. Patient tolerated the procedure without any complications. REPORT: Baseline EKG shows atrial fibrillation at 63 beats per minute, normal axis, normal intervals, PVCs, nonspecific ST-T changes. PARAMETERS 1. Resting heart rate is 73 beats per minute. 2. Maximal heart rate is 91 beats per minute. 3. Resting blood pressure 142/81 mmHg. 4. Maximum blood pressure 149/76 mmHg. REASON FOR TERMINATION: Endpoint attained. INTERPRETATION 1. Negative for chest pain. 2. Negative for arrhythmias. 3. Blood pressure response consistent with Lexiscan. 4. No significant ST-T changes seen during Lexiscan infusion compared to baseline. 5. Analysis of SPECT images reveals patchy radioisotope uptake both during stress and at rest without any significant reversible or fixed perfusion defects. CONCLUSIONS 1. No evidence of significant ischemia or infarction on this study. 2. No wall motion abnormalities on this study. 3. Ejection fraction is 67%. Job#: [id number] Signature Date Dictated By: RENAE RUIZ MD Transcribed By: [facility] on 07/19/17 <Electronically signed by RENAE RUIZ MD><<Signature on File>>07/26/17 1035 COPY TO: VQ LUNG SCAN VENT PERFUSION [place] [address] Patient Name: ANTONIO MILLIGAN MR #: [id number] : 1950 Age/Sex: 66/F Req #: [id number] Adm Physician: Ordered by: FLASH JORDAN MD Report #: [id number] Location: [place] Room/Bed: Procedure: [id number] NM/VQ LUNG SCAN VENT PERFUSION Exam Date: Exam Time: REPORT STATUS: Signed EXAM: VENTILATION PERFUSION LUNG SCAN INDICATION: 66 F with history of blood clots; SOB; possible pulmonary hypertension COMPARISON: CT chest 08/29/2016 DISCUSSION: Xenon-133 gas 20 mCi was administered via inhalation. Dynamic images of the lungs in the posterior projection were obtained through single breath and washout phases. Distribution of tracer activity is irregular throughout the lungs. Washout is diffusely delayed without evidence of air trapping. Perfusion images of the lungs in multiple projections were obtained following intravenous administration of 6.6 mCi of Tc-99m MAA. Distribution of tracer is irregular throughout the lungs. There are no segmental perfusion defects of any size. The contours of the lungs are well demarcated. The cardiac silhouette is enlarged. Images of the head show no intracerebral accumulation of the tracer. Images of the kidneys show no intraparenchymal accumulation of tracer. IMPRESSION: 1. Scan findings represent a VERY LOW probability for acute pulmonary embolic disease based on the PIOPED II criteria. 2. Scan findings are compatible with diffuse parenchymal and/or obstructive lung disease. 3. No right to left shunt is identified. Findings typical of chronic thromboembolic pulmonary hypertension are not present. 4. Enlarged cardiac silhouette. Signed by: Dr. Gordon Pacheco M.D. on 03/08/2017 7:27 PM Dictated By: GORDON PACHECO MD 26 Transcribed By: KODY on 03/08/171926 COPY TO: FLASH JORDAN MD
--- OUTSIDE RECORDS SUMMARY | 2018-02-22 06:08 | XMS REPORT | Summary of Care ---
Author Author [facility] [place] Organization [facility] [place] Address Unknown Phone Unavailable Encounter HQ Cristian_black([place]) [phone] Date(s): 03/02/15 - 03/02/15 [facility] [place] [address] [place], [place] [address] [place] [address] [phone] Discharge Disposition: Home Attending Physician: Jason Whaley [...]
--- OUTSIDE RECORDS SUMMARY | 2018-02-22 06:08 | XMS REPORT | Summary of Care ---
Author Organization Unknown Address Unknown Phone Unavailable Encounter HQ Roel([facility]) [id number] Date(s): 10/30/13 - 10/30/13 [facility] [address] Discharge Diagnosis: Acute shoulder pain Discharge Disposition: Home Physician Attending: Ronn Bailey MD Reason for Visit SHOULDER PAIN Vital Signs Most recent to 1 oldest [Reference Range]: Temperature Oral 98.2 DegF [96.4-99.1 DegF] (10/30/13 8:39 PM) Systolic Blood 151 mmHg Pressure [90-140 *HI* mmHg] (10/30/13 8:39 PM) Diastolic Blood 70 mmHg Pressure [60-90 (10/30/13 8:39 PM) mmHg] Respiratory Rate 20 BRMIN [14-20 BRMIN] (10/30/13 8:39 PM) Peripheral Pulse 74 bpm Rate [60-100 bpm] (10/30/13 8:39 PM) Weight 147.727 kg (10/30/13 8:39 PM) Problem List Condition Effective Dates Status Health Status Informant Back pain(Confirmed) Resolved Cancer(Confirmed)1 Resolved Diabetes Active mellitus(Confirmed) Hypertension(Confirm Active ed) 1skin cancer of nose Allergies, Adverse Reactions, Alerts Substance Reaction Severity Status NKDA Active Medications tramadol 50 mg oral tablet 1-2 tab, PO, Q6H, # 24 tab, 0 Refill(s) Start Date: 10/30/13 Status: Ordered Medications Administered During Your Visit No data available for this section Immunizations No data available for this section Social History Social History Type Response Smoking Status Never smoker, Concerns about tobacco use in household: No, Exposure to Tobacco Smoke None, Cigarette Smoking Last 365 Days No, Reg Smoking Cessation Counseling No
--- OUTSIDE RECORDS SUMMARY | 2018-02-22 06:08 | XMS REPORT | Summary of Care ---
Author Organization Unknown Address Unknown Phone Unavailable Encounter HQ Cristian_black([facility]) [id number] Date(s): 07/31/14 - 07/31/14 [facility] Outpatient Imaging - [address], [address] [place], [place] [address] [phone] Discharge Disposition: Home Physician Attending: Jason Whaley MD Vital Signs No data [...]
[2018-02-22 07:17] LABS: INR 1.44; PARTIAL THROMBOPLASTIN TIME 33.2 seconds (23.8-35.5); PROTHROMBIN TIME 18.7 seconds (11.9-14.5)
[2018-02-22 08:15] VITALS: BP 150/95
== END | disposition home or self-care (01) ==
LOC: OR 06:04
PROVIDERS: ATTEND Internal Medicine Gastroenterology
DX: K92.1 Melena (principal); K57.30 Diverticulosis of large intestine without perforation or abscess without bleeding; K64.8 Other hemorrhoids; Z85.048 Personal history of other malignant neoplasm of rectum, rectosigmoid junction, and anus; E66.01 Morbid (severe) obesity due to excess calories; E10.9 Type 1 diabetes mellitus without complications; Z71.3 Dietary counseling and surveillance; I10 Essential (primary) hypertension; G47.33 Obstructive sleep apnea (adult) (pediatric); Z01.810 Encounter for preprocedural cardiovascular examination; Z01.812 Encounter for preprocedural laboratory examination; Z79.01 Long term (current) use of anticoagulants; Z79.4 Long term (current) use of insulin; Z68.43 Body mass index [BMI] 50.0-59.9, adult
CPT/HCPCS: 36415 ×2; 45378; 82948; 85025; 85610; 85730; 93005; J2250; J2704

== ENCOUNTER → 2018-05-24 | Outpatient (CLI) | payer MEDICARE ==
[~2018-05-24] MED LIST changes: -INSULIN REGULAR, HUMAN 100 UNIT/1 ML 3ML VIAL ONE; -MIDAZOLAM HCL 2 MG/2 ML VIAL ONE; -PROPOFOL IV EMULSION 10 MG/ML 20 ML VIAL ONE; +REGADENOSON 0.4 MG/5 ML SYR IV ONE
--- NOTE | 2018-05-28 13:39 | Myoview Stress Test ---
DATE OF STUDY: 05/24/2018 09:40:00 Stress Test - Treadmill ONLY PROCEDURE TITLE: Rest/stress single isotope SPECT imaging with pharmacologic stress and gated SPECT imaging. INDICATION: Chest pain. DESCRIPTION OF PROCEDURE: Pharmacologic stress testing was performed with regadenoson per protocol. The heart rate was 57 beats per minute at rest and increased to 81 beats per minute during the regadenoson infusion. The resting blood pressure was 127/77 and increased to 156/79 mmHg, which is a normal response. The resting electrocardiogram demonstrated normal sinus rhythm. There were no ST-segment changes suggestive of myocardial ischemia. Myocardial perfusion imaging was performed at rest following the injection of 12 mCi of tetrofosmin. At peak pharmacologic effect, the patient was injected with 33 mCi of tetrofosmin. Gated post-stress tomographic imaging was performed. The overall quality of study is fair. Left ventricular cavity is noted to be normal size on the rest and stress studies. SPECT images demonstrate homogeneous tracer distribution throughout the myocardium. Gated SPECT imaging reveals normal myocardial thickening and wall motion. The left ventricular ejection fraction was calculated at 56%. IMPRESSION: Myocardial perfusion imaging is normal. Overall left ventricular systolic function was normal without regional wall motion abnormalities. Kayley Pereira MD ABS/MODL /[id number]
== END ==
LOC: NM 09:32
PROVIDERS: ATTEND Internal Medicine Interventional Cardiology
DX: I20.9 Angina pectoris, unspecified (principal); R07.9 Chest pain, unspecified
CPT/HCPCS: 78452; 93017; 93306; A9502; J2785

== ENCOUNTER 2018-12-10 16:38 | Emergency (ER) | payer MEDICARE ==
[~2018-12-10] VITALS: Ht 322.6 cm; Wt 139.7 kg
[~2018-12-10 16:38] MED LIST changes: -REGADENOSON 0.4 MG/5 ML SYR IV ONE
[2018-12-10 18:33] LABS: BASOPHILS % 0.3 % (0.0-1.0); EOSINOPHILS # (AUTO) 0.3 (0.0-0.4); EOSINOPHILS % 2.7 % (0.0-6.0); HEMATOCRIT 47.9 % (34.2-44.1); HEMOGLOBIN 15.3 g/dL (12.0-16.0); MEAN CORPUSCULAR HEMOGLOBIN 28.5 pg (28-32); MEAN CORPUSCULAR HGB CONC 31.9 g/dL (31-35); MEAN CORPUSCULAR VOLUME 89.2 fL (81-99); MONOCYTES # (AUTO) 1.1 (0.2-0.8); MONOCYTES % 8.9 % (4.4-11.3); NEUTROPHILS # (AUTO) 9.6 (2.1-6.9); NEUTROPHILS % 79.6 % (38.7-80.0); PLATELET COUNT 437 x10e3/uL (140-360); RED BLOOD COUNT 5.37 x10e6/uL (3.6-5.1); RED CELL DISTRIBUTION WIDTH 13.4 % (11.7-14.4)
[2018-12-10 18:43] LABS: BILIRUBIN,URINE SMALL (NEGATIVE); CLARITY,URINE CLOUDY (CLEAR); COLOR,URINE YELLOW (YELLOW); KETONES,URINE NEGATIVE (NEGATIVE); LEUKOCYTE ESTERASE ,URINE NEGATIVE (NEGATIVE); NITRITE,URINE NEGATIVE (NEGATIVE); PROTEIN,URINE DIPSTICK 1+ (NEGATIVE); URINE UROBILINOGEN 0.2 mg/dL (0.2 - 1)
[2018-12-10 18:54] LABS: ALBUMIN 3.6 g/dL (3.5-5.0); ANION GAP 16.7 mmol/L (8-16); CALCIUM 9.3 mg/dL (8.4-10.2); CREATININE, SERUM 1.02 mg/dL (0.57-1.11); POTASSIUM 3.7 mmol/L (3.5-5.1)
[2018-12-10 18:56] LABS: BACTERIA,URINE MANY /HPF; EPITHELIAL CELLS,URINE MODERATE /LPF
[2018-12-10 19:02] LABS: CREATINE KINASE MB 0.9 ng/mL (0-5.0)
[2018-12-10] MEDS ORDERED: SODIUM CHLORIDE 0.9% 500ML 500 ML IV ONE (23:00)
[2018-12-10] MEDS ORDERED: IOPAMIDOL 370 MG/ML 200 ML INFUS..BTL INJ ONE (23:18)
[2018-12-10] MEDS ORDERED: SODIUM CHLORIDE 0.9% 50ML 50 ML ONE (23:18)
--- NOTE | 2018-12-11 00:16 | Diagnostic Imaging Report ---
EXAM: CT Abdomen and Pelvis WITH contrast INDICATION: Abdominal pain, nausea, vomiting, diarrhea. COMPARISON: None. TECHNIQUE: Abdomen and pelvis were scanned utilizing a multidetector helical scanner from the lung base to the pubic symphysis after administration of IV contrast. Coronal and sagittal reformations were obtained. Routine protocol was performed. Scan was performed when during portal venous phase. IV CONTRAST: 100 cc of Isovue 370 ORAL CONTRAST: None. COMPLICATIONS: None RADIATION DOSE: Total DLP: 1257.8 mGy*cm Estimated effective dose: (DLP x 0.015 x size factor) mSv CTDIvol has been reviewed. It is below the limits set by the Radiation Protocol Committee (RPC). FINDINGS: LINES and TUBES: None. LOWER THORAX: Scattered coronary atherosclerosis. Patchy dependent atelectasis. HEPATOBILIARY: Diffuse mild hepatic steatosis. No evidence of focal lesion. No biliary ductal dilation. GALLBLADDER: The gallbladder is surgically absent. SPLEEN: No splenomegaly. PANCREAS: No focal masses or ductal dilatation. ADRENALS: No adrenal nodules KIDNEYS/URETERS: Kidneys enhance symmetrically. No evidence of hydronephrosis, solid mass, or stone. GI TRACT: No evidence of wall thickening or distension. The appendix is not visualized, however there are no secondary signs of appendicitis. Scattered colonic diverticulosis without CT evidence of diverticulitis. PELVIC ORGANS/BLADDER: Unremarkable. LYMPH NODES: No lymphadenopathy. VESSELS: Scattered mild atherosclerotic calcifications. PERITONEUM / RETROPERITONEUM: No free air or fluid. BONES AND SOFT TISSUES: Unremarkable. CONCLUSION: Diffuse mild hepatic steatosis. Status post cholecystectomy. Signed by: Dr. Nanci Branch MD on 12/11/2018 12:13 AM
[2018-12-11 00:37] VITALS: BP 105/70
== END 2018-12-11 00:47 | disposition home or self-care (01) ==
LOC: ER 16:38
DX: R10.13 Epigastric pain (principal); R11.2 Nausea with vomiting, unspecified; R19.7 Diarrhea, unspecified; I10 Essential (primary) hypertension; E11.9 Type 2 diabetes mellitus without complications; E78.5 Hyperlipidemia, unspecified; Z85.048 Personal history of other malignant neoplasm of rectum, rectosigmoid junction, and anus; Z85.828 Personal history of other malignant neoplasm of skin
CPT/HCPCS: 36415; 74177; 80053; 81001; 82550; 82553; 84484; 85025; 99284; J7040; Q9967

== ENCOUNTER → 2019-01-16 | Outpatient (CLI) | payer MEDICARE ==
--- NOTE | 2019-01-16 19:16 | Diagnostic Imaging Report ---
Solid-phase gastric emptying study Reason for examination: R14.0 Abdominal bloating The protocol used for this study is based on the Consensus Recommendations for Gastric Scintigraphy by the [place] [employer] Society and the Society of Nuclear Medicine. Clinical information: The patient is diabetic; blood sugar this morning is 169 mg/dL. The patient has not had previous gastrointestinal surgery other than cholecystectomy and appendectomy more than 10 years ago. The patient is not on any medications expected to affect gastric motility. The patient has been fasting for at least 6 hours prior to this exam. Radiopharmaceutical: Tc-99m sulfur colloid 1 mCi Report: The radiopharmaceutical was added to 1/2 cup egg whites that were then prepared and served with 2 pieces of white bread toasted, 30 grams of jam and 4 ounces of water. The patient took the meal orally without difficulty. Images were obtained of the abdomen in the anterior and posterior projections at 10 minutes post the meal and at 1, 2 and 3 hours. Uptake was determined from the geometric mean of the anterior and posterior counts and the counts were corrected for decay of the radiolabel. The percent gastric retention of the labeled meal at: 1 hour was 25% (normal 30-90%) 2 hours was 4% (normal <60%) 3 hours was 2% (normal <30%) 4 hour measurement not obtained because gastric retention was less than 10% at 3 hours. Impression: Gastric emptying is rapid. This may be seen in functional dyspepsia, irritable bowel syndrome or, in the appropriate clinical setting, dumping syndrome. Signed by: Dr. Sylvia Pacheco M.D. on 01/16/2019 7:13 PM
== END ==
LOC: NM 08:03
PROVIDERS: ATTEND Internal Medicine Gastroenterology
DX: R14.0 Abdominal distension (gaseous) (principal); I10 Essential (primary) hypertension; E11.9 Type 2 diabetes mellitus without complications; E66.01 Morbid (severe) obesity due to excess calories; Z71.3 Dietary counseling and surveillance
CPT/HCPCS: 78264; A9541

== ENCOUNTER 2019-09-07 09:26 | Emergency (ER) | payer MEDICARE ==
[~2019-09-07] VITALS: Ht 154.9 cm; Wt 159.7 kg
[2019-09-07 10:19] LABS: BASOPHILS # (AUTO) 0.1 (0.0-0.1); BASOPHILS % 0.7 % (0.0-1.0); EOSINOPHILS # (AUTO) 0.1 (0.0-0.4); EOSINOPHILS % 1.7 % (0.0-6.0); HEMATOCRIT 45.5 % (34.2-44.1); HEMOGLOBIN 13.5 g/dL (12.0-16.0); LYMPHOCYTES # (AUTO) 0.6 (1.0-3.2); LYMPHOCYTES % 7.3 % (18.0-39.1); MEAN CORPUSCULAR HEMOGLOBIN 26.8 pg (28-32); MEAN CORPUSCULAR HGB CONC 29.7 g/dL (31-35); MEAN CORPUSCULAR VOLUME 90.3 fL (81-99); MONOCYTES # (AUTO) 0.6 (0.2-0.8); MONOCYTES % 7.5 % (4.4-11.3); NEUTROPHILS # (AUTO) 6.7 (2.1-6.9); NEUTROPHILS % 82.2 % (38.7-80.0); PLATELET COUNT 370 x10e3/uL (140-360); RED BLOOD COUNT 5.04 x10e6/uL (3.6-5.1); RED CELL DISTRIBUTION WIDTH 16.8 % (11.7-14.4)
--- OUTSIDE RECORDS SUMMARY | 2019-09-07 10:32 | XMS REPORT | Summary of Care ---
Author Author [facility] Organization [facility] Address Unknown Phone Unavailable Care Team Providers Care Cabinet Installer Name Role Phone Jason Whaley MD PCP Reason for Visit * Reason Comments Nutrition Counseling Morbid Obesity * Consult, Test & Treat (Routine) Referred By Contact Referred To Contact Status Reason Specialty Diagnoses / Procedures Pete Goode MD [address] [address] Tammy Mendieta, RD [address] [place] [address] Authorization Consult, Test, and Bariatrics Diagnoses Not Needed Treat Morbid obesity (HCCode) Pre-operative clearance 1-6 1-6 P rocedures CA MED NUTR THER, 1ST, INDIV, EA 15 MIN Encounter Details Care Team Description Date Type Department Tammy Mendieta, RD [address] [place], [place] [id number] Nutrition Counseling; Morbid Obesity 04/22/2019 Office Visit [facility] Bariatric Surgery [address]; [address] [place] [address] Allergies No Known Allergiesdocumented as of this encounter (statuses as of 04/23/2019) Medications End Date Status Medication Sig Dispensed Refills Start Date Active warfarin (COUMADIN) 3 MG Take 3 mg by 0 tablet mouth daily. Active METFORMIN HCL ER OR Take 500 mg 0 by mouth two times daily. Active LOSARTAN POTASSIUM OR Take 25 mg by 0 mouth daily. Active insulin regular (HUMULIN Inject 2 0 R) 100 Units/mL injection Units into the muscle daily. Active insulin glargine (LANTUS) Inject 3 0 100 UNIT/ML injection Units into the skin nightly. documented as of this encounter (statuses as of 04/23/2019) Active Problems Not on filedocumented as of this encounter (statuses as of 04/23/2019) Social History Date Tobacco Use Types Packs/Day Years Used Never Smoker Smokeless Tobacco: Never Used Sex Assigned at Date Recorded Not on file Industry Job Start Date Occupation Not on file Not on file Not on file Travel End Travel History Travel Start No recent travel history available. documented as of this encounter Last Filed Vital Signs Reading Time Taken Comments Vital Sign - - Blood Pressure - - Pulse - - Temperature - - Respiratory Rate - - Oxygen Saturation - - Inhaled Oxygen Concentration 160.9 kg (354 lb 12.8 oz) 04/22/2019 3:06 PM CDT Weight 165.1 cm (5' 5") 04/22/2019 3:06 PM CDT Height 59.04 04/22/2019 3:06 PM CDT Body Mass Index documented in this encounter Patient Instructions * Patient Instructions* Tammy Mendieta RD - 04/22/2019 3:07 PM CDT Metabolic and Bariatric Surgery [facility] ([facility] [phone] YOUR RECOMMENDATIONS/GOALS: 1. Watch the amount of sodium in your diet. --limit prepared foods--canned and/or frozen--to no more than once per day. Rin se off any canned foods. --Most foods should be fresh. 2. Start taking a daily multivitamin. Please don't hesitate to call or email with any questions or concerns. Tammy Mendieta, MS,RD,LDN Senior Registered Dietitian [facility] Department of Surgery Email: [email or web address] documented in this encounter Progress Notes * Korey Samson CMA - 04/22/2019 4:12 PM CDT Your Body mass index is 59.04 kg/m. Body mass index (BMI) can help you see if your weight is raising your risk for h ealth problems. It uses a formula to compare how much you weigh with how tall yo u are. A BMI between 18.5 and 24.9 is considered healthy. A BMI between 25 and 2 9.9 is considered overweight. A BMI of 30 or higher is considered obese. If your BMI is in the normal range, it means that you have a lower risk for weig ht-related health problems. If your BMI is in the overweight or obese range, you may be at increased risk for weight-related health problems, such as high blood pressure, heart disease, stroke, arthritis or joint pain, and diabetes. BMI is just one measure of your risk for weight-related health problems. You may be at higher risk for health problems if you are not active, you eat an unhealt hy diet, or you drink too much alcohol or use tobacco products. Follow-up care is a steiner part of your treatment and safety. Be sure to make and g o to all appointments, and call your doctor if you are having problems. It's als o a good idea to know your test results and keep a list of the medicines you juan e. How can you care for yourself at home? Practice healthy eating habits. This includes eating plenty of fruits, vegeta bles, whole grains, lean protein, and low-fat dairy. Get at least 30 minutes of exercise 5 days a week or more. Brisk walking is a good choice. You also may want to do other activities, such as running, swimmin g, cycling, or playing tennis or team sports. Do not smoke. Smoking can increase your risk for health problems. If you need help quitting, talk to your doctor about stop-smoking programs and medicines. T hese can increase your chances of quitting for good. Limit alcohol Where can you learn more? Go to www.[employer].Mini[employer]rakest. [facility] centerCoachMePlus.ShareThe Go to the Search tab with the magnifying glass on the right side of [employer] home page. Enter S176 in the search box to learn more about "Body Mass Index: Care Instruct ions." * Tammy Mendieta RD - 04/22/2019 3:04 PM CDT Metabolic and Bariatric Surgery Nutrition Initial note. Visit: 1 6 Elmira Wiseman is a 68 y.o. female referred by Dr. GOODE for nutrition counseling and is seeking weight loss surgery. Came with nephew. Subjective: (04/22/2019) Retaining excessive amounts of fluid. Difficulty breathing because o f this and has difficulty walking with the edema. Per pt, the lift team technician conc erned about pumping of her heart. Improvement with fluid when on Spirinoactone a nd Furosemide. Not much of an appetite. Eating 1-2 times/day. Small portions--Da raimundo intake will include rice/beans, coffee with milk. Eats after taking insulin 3 times/day. Told to limit her fluid intake--drinks 16-32oz/day. Unable for phys ical activity at this time due to dyspnea and edema in extremities. Was in wheel chair today. Takes Vitamin D daily. Objective: Past Medical History: Diagnosis Date Acid reflux Anal cancer [place] s/p NIGRA protocol Diabetes ([facility] [place]) 2013 DVT (deep venous thrombosis) ([facility] [place] 2016 right leg, precipitated PE Heartburn Hypercholesteremia Hypertension Irregular heart beat Low back pain [facility]bid [facility] to [facility] Oste[facility] Sleep apnea Venous stasis Ht Readings from Last 1 Encounters: 04/22/19 5' 5" (1.651 m) Wt Readings from Last 2 Encounters: 04/22/19 (!) 354 lb 12.8 oz (160.9 kg) 03/25/19 (!) 352 lb (159.7 kg) BMI Readings from Last 2 Encounters: 04/22/19 59.04 kg/m 03/25/19 58.58 kg/m NUTRITION DIAGNOSIS: Morbid obesity related to excessive energy intake and lack of physical activity as evidenced by BMI of 59.04 kg/m2. Notes: Difficulty identifying true weight with excess fluid on her. Pt will be following up with cardiology, gastroenterology, and pulmonary to i dentify her current condition. Pt was in obvious discomfort and worried about her current health. Briefly di scussed her eating habits. Hard for her to eat much right now because of a poor appetite. Especially stressed limiting her sodium intake at this time to help pr event further edema. Advised her to start taking a multivitamin. Will continue t o address nutrition issues in the future. ? Takes Vitamin D. ? See "plan" for specific suggestions. ? F/u x 1 month(s) Plan: 1. Watch the amount of sodium in your diet. --limit prepared foods--canned and/or frozen--to no more than once per day. Rin se off any canned foods. --Most foods should be fresh. 2. Start taking a daily multivitamin. Patient verbalizes understanding of plan and denies further nutrition related qu estions or concerns at this time. Dietitian will continue to monitor and remain s available to address future nutrition related questions and concerns. Tammy Mendieta, MS,RD,LDN Senior Registered Dietitian [facility], Department of Surgery [facility] [email or web address] documented in this encounter Plan of Treatment Care Team Description Date Type Specialty Carmita Lambert, PhD [address] [address] [phone] 05/09/2019 Office Visit Gastroenterology Tammy Mendieta RD [address] [place] [address] [phone] 05/21/2019 Office Visit Bariatrics Order Schedule Name Type Priority Associated Diag noses Ordered: 03/25/2019 AMB REF TO BARIATRIC Outpatient Routine Morbid ob esity (HCCode) MATERNITY NURSE [facility] Referral Pre-operative clear ance Health Maintenance Due Date Last Done Comments COLON CANCER SCREENIN1951 COLONOSCOPY MAMMOGRAM ANNUAL 1951 TETANUS SHOT (ADULT) 05/17/1966 ANNUAL DIABETIC FOOT EXAM 05/17/1969 ANNUAL DIABETIC 05/17/1969 RETINOPATHY SCREENING HEPATITIS C SCREENING 05/17/1969 FALL SCREEN 05/17/2016 OSTEOPOROSIS SCREENING 05/17/2016 PNEUMOVAX >=65 (PPSV23) 05/17/2016 PREVNAR >= 65 (PCV13) 05/17/2016 FLU VACCINE > 6 MONTHS 09/06/2018 MEDICARE IPPE (WELCOME TO 02/06/2019 MEDICARE) BMI FOLLOW UP PLAN 04/21/2020 04/22/2019 documented as of this encounter Results Not on filedocumented in this encounter Visit Diagnoses Diagnosis Dietary counseling - Primary Dietary surveillance and counseling Morbid obesity (HCCode) Morbid obesity documented in this encounter
--- OUTSIDE RECORDS SUMMARY | 2019-09-07 10:32 | XMS REPORT | Summary of Care ---
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 Role Phone Jason Whaley MD PCP Reason for Referral * (Routine) Referred By Contact Referred To Contact Status Reason Specialty Diagnoses / Procedures Pete Goode MD [address] [place] [address] Pending Consult, Test, and Pulmonary Diagnoses Treat Disease Morbid obesity (HCCode) Pre-operative clearance * (Routine) Referred By Contact Referred To Contact Status Reason Specialty Diagnoses / Procedures Pete Goode MD [address] [place] [address] Pending Consult, Test, and Diagnoses Treat Morbid obesity (HCCode) Pre-operative clearance * Consult, Test & Treat (Routine) Referred By Contact Referred To Contact Status Reason Specialty Diagnoses / Procedures Pete Goode MD [address] [place] [address] Carmita Lambert, PhD [facility] [address] [address] Pending Consult, Test, and Gastroenterology Diagnoses Treat Morbid obesity (HCCode) Pre-operative clearance P rocedures [place] HEALTH BEHAVIOR ASSESSMENT/RE-ASSE [place]SMENT [place] PSYCHIATRIC DIAGNOSTIC EVALUATION * Consult, Test & Treat (Routine) Referred By Contact Referred To Contact Status Reason Specialty Diagnoses / Procedures Pete Goode MD [address] [place], [place] [id number] Tammy Mendieta, BARRY [address] [place] [address] Pending Consult, Test, and Bariatrics Diagnoses Treat Morbid obesity (HCCode) Pre-operative clearance 1-6 P rocedures [place] MED NUTR THER, 1ST, INDIV, EA 15 MIN Reason for Visit * Reason Comments Initial Consultation * Consult, Test & Treat (Routine) Referred By Contact Referred To Contact Status Reason Specialty Diagnoses / Procedures Jason Whaley MD [address] [place] [address] [place] B[facility] [address]; [address] [place] [address] Patient Bariatrics Diagnoses Responsible Weight loss Nov* Weight loss surgery* Referred by Dr. Jason Whaley Procedures [place] OFFICE OUTPATIENT NEW 30 MINUTES NEW BARIATRIC SEMINAR Encounter Details Care Team Description Date Type Department Pete Goode MD [address] [id number] Initial Consultation 03/25/2019 Office Visit [facility] Bariatric Surgery [address]; [address] [place] [address] Allergies No Known Allergiesdocumented as of this encounter (statuses as of 03/25/2019) Medications End Date Status Medication Sig Dispensed [...] as of this encounter (statuses as of 03/25/2019) Active Problems Not on filedocumented as of this encounter (statuses as of 03/25/2019) Social History Date Tobacco Use Types Packs/Day Years Used Never Smoker Smokeless Tobacco: Never Used Sex Assigned at Date Recorded Not on file Industry Job Start Date Occupation Not on file Not on file Not on file Travel End Travel History Travel Start No recent travel history available. documented as of this encounter Last Filed Vital Signs Reading Time Taken Comments Vital Sign 122/83 03/25/2019 2:09 PM COMPUTER SCIENTIST Blood Pressure 76 03/25/2019 2:09 PM COMPUTER SCIENTIST Pulse 36.5 C (97.7 F) 03/25/2019 2:09 PM COMPUTER SCIENTIST Temperature - - Respiratory Rate - - Oxygen Saturation - - Inhaled Oxygen Concentration 159.7 kg (352 lb) 03/25/2019 2:09 PM COMPUTER SCIENTIST Weight 165.1 cm (5' 5") 03/25/2019 2:09 PM COMPUTER SCIENTIST Height 58.58 03/25/2019 2:09 PM COMPUTER SCIENTIST Body Mass Index documented in this encounter Progress Notes * Dahlia Grant, [place] - 03/25/2019 2:26 PM COMPUTER SCIENTIST Your Body mass index is 58.58 kg/m. Body mass index (BMI) can help you see if your weight is raising your risk for h ealth problems. It uses a formula to compare how much you weigh with how tall yo u are. A BMI lower than 18.5 is considered underweight. A BMI between 18.5 and 24.9 is considered healthy. A BMI between 25 and 29.9 is considered overweight. A BMI of 30 [...] stroke, arthritis or joint pain, and diabetes. If your BMI is in the underweight range, you may be at increased risk for health proble ms such as fatigue, lower protection (immunity) against illness, muscle loss, indigo ne loss, hair loss, and hormone problems. BMI is just one measure of your [...] whole grains, lean protein, and low-fat dairy. If your doctor recommends it, get more exercise. Walking is a good choice. Bi t by bit, increase the amount you walk every day. Try for at least 30 minutes on most days of the week. Do not smoke. Smoking can increase your risk for health problems. If you need help quitting, talk to your doctor about stop-smoking programs and medicines. T hese can increase your chances of quitting for good. Limit alcohol to 2 drinks a day for men and 1 drink a day for women. Too much alcohol can cause health problems. If you have a BMI higher than 25 Your doctor may do other tests to check your risk for weight-related health p isha. This may include measuring the distance around your waist. A waist marsha urement of more than 40 inches in men or 35 inches in women can increase the ris k of weight-related health problems. Talk with your doctor about steps you can take to stay healthy or improve you r health. You may need to make lifestyle changes to lose weight and stay healthy , such as changing your diet and getting regular exercise. Where can you learn more? Go to [email or web address]/ Click on the magnifying glass tab, and enter S176 in the search box to learn trice miles about "Body Mass Index: Care Instructions." Current as of: November 14, 2016 Content Version: 11.7 8952-3671 [employer]. Care instructions adapted under license b y [facility]. If you have questions about a medical condition or this instruction, always ask your healthcare professional. [employer] ateloyd disclaims any warranty or liability for your use of this information. UTER SCIENTIST * Pete Goode MD - 03/25/2019 2:00 PM COMPUTER SCIENTIST [facility] Department of Surgery Division of General Surgery [facility] AMBULATORY [facility] BARIATRIC SURGERY [address] [facility]. 8TH FLOOR; [address] [facility] [address] Dept: [phone] Letter of Medical Necessity for Bariatric Surgery for: Elmira Wiseman, 1950 Date: 03/25/2019 Dear Jason Whaley MD, Jason Whaley MD [address] [place], [place] [id number] Thank you for the referral of your patient Elmira Wiseman. As you know , the patient is a 68 y.o. female, being seen today for evaluation for bariatric surgery. The patient reports multiple unsuccessful attempts at non-surgical cordell ght loss and the impact of this excess weight on her quality of life. The patient is Height: 5' 5" (165.1 cm) and Weight - Scale: (!) 352 lb (159.7 kg ). This corresponds to a body mass index (BMI) of Body mass index is 58.58 kg/m .. The patient reports a life long history of obesity. In addition to morbid obesity, the patient is suffering from the following co-mo rbid conditions Diabetes, Hypertension, Hyperlipidemia, Obstructive Sleep Apnea, GERD, DVT, Cardiac Disease. She is on 4 medications for diabetes, including ins ulin, and had her HbA1c checked last month by her PCP but she is not sure of the value (records not currently available for review). She is also on multiple ant i-hypertensive medications, including diuretics and beta-blockade, which were st arted by a algorithm developer. Given her dyspnea on exertion and bilateral leg swellin g, she likely has CHF. The patient had been diagnosed with anal cancer in 2016 and underwent treatment with Nigra protocol. She will meet with her PCP tomorrow and obtain referral to [facility] for her anal cancer surveillance. The patient has tried multiple diet programs such as multiple self diets. She alberto s tried the following weight loss medications to lose weight: phentermine (taken for 3-4 months with 100 lb weight loss). Non Dietary weight loss tried has been Exercise. The patient has lost weight with each attempt but has always regained. Currently, the patient is that the heaviest weight of her life. The patient has attended the informational seminar and has a good understanding of the risks involved and reasonable expectations and understands the importance of being compliant with all post surgical requirements. Past Medical History: The patients medical history is significant for: Co-Morbidities: Past Medical History: Diagnosis Date Acid reflux Anal cancer ([facility]) 2016 [facility]/p [facility]RA [facility] DVT (deep venous thrombosis) ([facility]) 2016 right leg, precipitated PE Heartburn Hypercholesteremia Hypertension Irregular heart beat Low back pain Morbid obesity due to excess calories [facility] Osteoarthritis [facility] Sleep apnea Venous stasis Past Surgical History: Past Surgical History: Procedure Laterality Date HX APPENDECTOMY HX CARPAL TUNNEL RELEASE Bilateral HX SECTION x2 HX CHOLECYSTECTOMY open HX CHRISS AND BSO Allergies: No Known Allergies Medications: Current Outpatient Medications Medication Sig Dispense Refill insulin glargine (LANTUS) 100 UNIT/ML injection Inject 3 Units into the skin nightly. insulin regular (HUMULIN R) 100 Units/mL injection Inject 2 Units into the m uscle daily. LOSARTAN POTASSIUM OR Take 25 mg by mouth daily. METFORMIN HCL ER OR Take 500 mg by mouth two times daily. warfarin (COUMADIN) 3 MG tablet Take 3 mg by mouth daily. No current facility-administered medications for this visit. Social History: Social History Occupational History Not on file Tobacco Use Smoking status: Never Smoker Smokeless tobacco: Never Used Substance and Sexual Activity Alcohol use: Not on file Drug use: Not on file Sexual activity: Not on file Family History: Family History Problem Relation Name Age of Onset Diabetes Mother Heart Problems Father 62 [place] The patient has a strong social network that is supportive of the decision for b ariatric surgery. Review of Systems: Constitutional: negative Eyes: negative Ears, nose, mouth, throat, and face: negative Respiratory: positive for wheezing or dyspnea on exertion Cardiovascular: positive for irregular heart beats, negative for chest pain Gastrointestinal: negative Genitourinary:negative for urinary incontinence Hematologic/lymphatic: positive for AC for h/o PE and DVT Musculoskeletal:positive for arthralgias Neurological: negative Behavioral/Psych: negative Endocrine: negative Allergic/Immunologic: negative PHYSICAL EXAMINATION: Vital Signs Height: 5' 5" (165.1 cm) Weight - Scale: (!) 352 lb (159.7 kg) Temp: 97.7 F (36.5 C) Temp Source: Oral Pulse: 76 BP: 122/83 Patient Position: Sitting BP Location: left arm Height and Weight BSA (Calculated - sq m): 2.71 sq meters BMI (Calculated): 58.7 Predicted Body Weight: 125.66 Waist Circumference in Inches: 68 inches Neck Circumference in Inches: 17 inches Waist Circumference in Inches: 68 inches Neck Circumference in Inches: 17 inches Physical Exam BP 122/83 (BP Location: left arm, Patient Position: Sitting) | Pulse 76 | Temp 97.7 F (36.5 C) (Oral) | Ht 5' 5" (1.651 m) | Wt (!) 352 lb (159.7 kg) | BMI 58.58 kg/m General: Alert, cooperative, no distress. Head: Normocephalic, without obvious abnormality. Eyes: Conjunctivae/corneas clear. Pupils equal. EOMs intact. Ears: Normal TMs and external ear canals both ears. Nose: Nares normal. Septum midline. Mucosa normal. No drainage or sinus tenderne ss. Throat: Lips, mucosa, and tongue normal. Teeth and gums normal. Neck: Supple, symmetrical, trachea midline, no adenopathy, thyroid: no enlargmen t/tenderness/nodules. Back: Symmetric, no curvature. ROM normal. No CVA tenderness. Lungs: Diminished bilaterally with wheezing. Chest wall: No tenderness or deformity. Heart: Regular rate and rhythm, S1, S2 normal, no murmur, click, rub or gallop. Abdomen: Soft, non-tender. Bowel sounds normal. No masses, No organomegaly. Extremities: Extremities normal, atraumatic, no cyanosis or edema. Pulses: 2+ and symmetric all extremities. Skin: Edematous abdomen and chronic venous stasis in BLE Lymph nodes: Cervical, supraclavicular, and axillary nodes normal. Neurologic: CNII-XII intact. Normal strength, sensation throughout. Laboratory: No results found for: WBC, RBC, HGB No results found for: GLUCOSE, BUN, CREATININE, CO2, CALCIUM No results found for: APTT No results found for: INR ASSESSMENT: This is a morbidly obese patient with a BMI of Body mass index is 58.58 kg/m.. The patient has the following co-morbidity associated with obesity: Past Medical History: Diagnosis Date [facility]/p [facility] protocol [facility] 2013 DVT (deep venous thrombosis) ([facility]) 2016 right leg, precipitated PE Heartburn Hypercholesteremia Hypertension Irregular heart beat Low back pain Morbid obesity due to excess calories (HCCode) Osteoarthritis Pulmonary emboli (HCCode) Sleep apnea Venous stasis The patient desires surgery for weight loss and meets the [place] [employer] eligibility criteria for bariatric surgery with no obvious contraindi cations. This patient has a high BMI and at her current weight is at risk for de veloping further medical complications and has not successfully maintained a sig nificant weight loss through other interventions, therefore, we recommend bariat angie surgery. PLAN: We had an in-depth discussion with the patient regarding the potential eileen or complications after bariatric surgery, including but not limited to leak of g astrointestinal contents, bleeding requiring a blood transfusion, wound and intr a-abdominal infections, gastric leakage and stenosis, small bowel obstruction, h ernia, dilatation of the stomach, pneumonia, venous thromboembolism, myocardial ischemia and stroke, reoperation, prolonged ventilator support and . We hav e also discussed minor complications such as superficial wound infections and ur inary tract infections as well as dietary restrictions that are expected after t he surgery. We were very clear with the patient that dietary and lifestyle modif ications are needed in order to achieve a meaningful weight loss. Patients are e xpected to return for follow-up after surgery. The patient verbalizes understanding of the risks and potential complications, l imitations and benefits associated with bariatric surgery. The patient does not have plans for any surgery following the procedure. In order to qualify for this surgery she is required to have the following pre-o perative work up: Laboratory testing that may include CBC, BMP, PT/INR/PP, UA, LFT's, HgA1C, TSH, Triglyceride, HDL, LDL, TIBC, Ferritin, Folate, B12 Level Chest X-ray EKG Psychological evaluation Medically supervised weight loss for 6 months. Cardiac evaluation. In addition, she will need a CPAP titration due to persistent symptoms of sleep apnea. She will follow up with her PCP about her anasarca and to get referral for her a nal cancer surveillance After the above-mentioned testing has been completed, the administrative process will be initiated for bariatric surgery and the results submitted for insurance approval. Again, thank you for the referral of this patient. Please do not hesitate to con tact me directly should you have any further questions regarding his/her care. Sincerely, Peet Goode MD, PhD Minimally Invasive, Bariatric and Robotic Surgery [facility] UTER SCIENTIST documented in this encounter Plan of Treatment Care Team Description Date Type Specialty Tammy Mendieta, RD [address] [place] [address] [phone] 04/18/2019 Office Visit Bariatrics Order Schedule Name Type Priority Associated Diag noses Ordered: 03/25/2019 AMB REF TO BARIATRIC Outpatient Routine Morbid ob esity (HCCode) HEAVY DUTY DIESEL MECHANIC [facility] Referral Pre-operative clear ance Ordered: 03/25/2019 AMB REF TO GI BEHAVIORAL Outpatient Routine Morbi d obesity (HCCode) HEALTH Referral Pre-operative clear ance Ordered: 03/25/2019 AMB REF TO CARDIOLOGY Outpatient Routine Morbid o besity (HCCode) EXTERNAL Referral Pre-operative clear ance Ordered: 03/25/2019 AMB REF TO SLEEP LAB Outpatient Routine Morbid ob esity (HCCode) EXTERNAL Referral Pre-operative clear ance Health Maintenance Due Date Last Done Comments COLON CANCER SCREENIN1950 COLONOSCOPY MAMMOGRAM ANNUAL 1950 TETANUS SHOT (ADULT) 05/17/1966 HEPATITIS C SCREENING 05/17/1969 FALL SCREEN 05/17/2016 OSTEOPOROSIS SCREENING 05/17/2016 PNEUMOVAX >=65 (PPSV23) 05/17/2016 PREVNAR >= 65 (PCV13) 05/17/2016 MEDICARE AWV (Initial) 02/06/2018 FLU VACCINE > 6 MONTHS 09/06/2018 documented as of this encounter Results Not on filedocumented in this encounter Visit Diagnoses Diagnosis Morbid obesity (HCCode) - Primary Morbid obesity Vitamin deficiency Unspecified vitamin deficiency Pre-operative clearance Preoperative examination, unspecified Type 2 diabetes mellitus with other cir culatory complication, with long-term current use of insulin (HCCode) Hypercholesteremia Pure hypercholesterolemia Hypertension, unspecified type Acute pulmonary embolism, unspecified p ulmonary embolism type, unspecified whether acute cor pulmonale present (HCCode) documented in this encounter Insurance Type Payer Benefit Subscriber ID Effective Phone Address Plan / Dates Group Medicare Personal [employer] xxxxxxxx 2018-P [address] [place] [id number] [facility] [id number] documented as of this encounter
--- OUTSIDE RECORDS SUMMARY | 2019-09-07 10:32 | XMS REPORT | Continuity of Care Document ---
Author Author [facility] t Organization [facility] Address [address] [place] [address] Phone Unavailable Care Team Providers Care Director Of Alumni Relations Name Role Phone JASON WHALEY MD PCP Tammy Mendieta RD Attphys Chikis Goode MD Attphys Pardeep CUNNINGHAM Attphys Unavailable SANDHIR, AMBMOHINDER Attphys Unavailable OJEAS, S TARIQ Attphys Unavailable RYAN, MEDARDO Attphys Unavailable CAYENNE, RENAE Attphys Unavailable FLASH JORDAN Attphys Unavailable Payers Payer Name Policy Type Policy Number Effective Date Expiration Date S ource Problems Condition Name Condition Details Condition Category Status Onset Date Resolution Date Last Treatment Date Treating Clinician Comments Source Deep vein thrombosis (DVT) DVT (deep venous thrombosis) Problem Active [facility] Pulmonary embolism Pulmonary embolism Problem Active [facility] Allergies, Adverse Reactions, Alerts Allergy Name Allergy Type Status Severity Reaction(s) Onset Date Inacti ve Date Treating Clinician Comments Source No Known Allergies DA Active U 2016-08-05 00:00:00 [facility] Medications Ordered Medication Name Filled Medication Name Start Date Stop Da te Current Medication? Ordering Clinician Indication Dosage Frequency Signature (SIG) Comments Components Source Warfarin Sodium (Coumadin*) 3 Mg Tablet, 5 Mg Oral War farin Sodium (Coumadin*) 3 Mg Tablet, 5 Mg Oral 2015-12-13 00:00:00 2018-02-21 00:00:00 No Anuja Dean Md 5 Daily At 1700 [facility] I [facility] Hydrocodone Bit/Acetaminophen ([place] 7.5-325 Tablet) 1 Each Tablet Hydrocodone Bit/Acetaminophen ([place] 7.5-325 Tablet) 1 Each Tablet Yes 1 Every 6 Hours [facility] Insulin Glargine (Lantus) 100 Units/Ml Ml Insulin Glar gine (Lantus) 100 Units/Ml Ml Yes 35 Bedtime [facility] Insulin Regular, Human (Humulin R) 100 Unit/1 Ml Vial Insulin Regular, Human (Humulin R) 100 Unit/1 Ml Vial Yes 25 Daily [facility] Losartan Potassium 25 Mg Tablet Losartan Potassium 25 Mg Tablet Yes Daily [facility] Metformin Hcl 500 Mg Tablet Metformin Hcl 500 Mg Tablet Yes 1000 Twice A Day [facility] Warfarin Sodium 3 Mg Tablet Warfarin Sodium 3 Mg Tablet Yes 6 Daily [facility] Ibuprofen 400 Mg Tablet, 800 Mg Oral Ibuprofen 400 Mg Tablet, 80 0 Mg Oral 2018-02-21 00:00:00 No 800 Every 4 Hours [facility] Simvastatin 20 Mg Tablet, 20 Mg Oral Simvastatin 20 Mg Tablet, 2 0 Mg Oral 2018-02-21 00:00:00 No 20 Today At 9:00PM [facility] Valsartan (Diovan) 80 Mg Tab, 20 Mg Oral Valsartan (Di ovan) 80 Mg Tab, 20 Mg Oral 2018-02-21 00:00:00 No 20 Daily [facility] Vit C , 500 Mg Oral Vit C , 500 Mg Oral 2018-02-21 00:00:00 No 500 Daily [facility] Vit D3 , 2000 Units Oral Vit D3 , 2000 Units Oral 2018-02-21 00: 00:00 No 2000 Daily [facility] Insulin Glulisine (Apidra Solostar) 100 Unit/1 Ml Insuln.pen, 35 Unit Subcutaneously Insulin Glulisine (Apidra Solostar) 100 Unit/1 Ml Insuln.pen, 35 Unit Subcutaneously 2015-12-11 00:00:00 No 35 Miguel y [facility] Amlodipine Besylate 10 Mg Tablet, 10 Mg Oral Amlodipin e Besylate 10 Mg Tablet, 10 Mg Oral 2015-12-07 00:00:00 No 10 Daily [facility] Naproxen Sodium (Aleve) 220 Mg Tablet, 1 Tab Oral Napr oxen Sodium (Aleve) 220 Mg Tablet, 1 Tab Oral 2015-12-07 00:00:00 No 1 Every 8 Hours [facility] Tramadol Hcl (Ultram 50MG*) 50 Mg Tab, 50 Mg Oral Tram adol Hcl (Ultram 50MG*) 50 Mg Tab, 50 Mg Oral 2015-12-07 00:00:00 No 50 Three Times A Day [facility] Pioglitazone Hcl (Actos*) 15 Mg Tablet, 15 Mg Oral Santos glitazone Hcl (Actos*) 15 Mg Tablet, 15 Mg Oral 2015-10-09 00:00:00 No 15 Da raimundo [facility] Multivitamin (Multi-Vitamin Daily) 1 Each Tablet, Or al Multivitamin (Multi- Vitamin Daily) 1 Each Tablet, Oral 2015-09-24 00:00:00 No Daily [facility] Ropinirole Hcl 1 Mg Tablet, 1 Mg Oral Ropinirole Hcl 1 Mg Tablet , 1 Mg Oral 2015-09-24 00:00:00 No 1 Daily [facility] Furosemide (Lasix) 40 Mg Tablet, 40 Mg Oral Furosemide (Lasix) 40 Mg Tablet, 40 Mg Oral 2015-06-23 00:00:00 No 40 Daily [facility] Potassium Chloride (Klor-Con 10) 10 Meq Tablet.er, 1 T ab Oral Potassium Chloride (Klor-Con 10) 10 Meq Tablet.er, 1 Tab Oral 2015-06-23 00:00:00 No 1 Daily [facility] Sertraline Hcl (Zoloft) 50 Mg Tablet, 50 Mg Oral Sertr dionisio Hcl (Zoloft) 50 Mg Tablet, 50 Mg Oral 2015-06-23 00:00:00 No 50 Daily [facility] Valsartan (Diovan) 160 Mg Tab, 160 Mg Oral Valsartan ( Diovan) 160 Mg Tab, 160 Mg Oral 2015-06-23 00:00:00 No 160 Daily [facility] Procedures Procedure Date / Time Performed Performing Clinician [facility] e X-ray of chest, two views 2019-02-26 00:00:00 FLIP CUNNINGHAM [facility] I [facility] TREAT SHOULDER DISLOCATION 2019-02-01 00:00:00 C HI [facility] Computed tomography of abdomen and pelvis with contrast 2018 00:00:00 ADOLFO ABDI [facility] Encounters Start Date/Time End Date/Time Encounter Type Admission Type [facility] Care Department Encounter ID Source 2019-04-22 14:49:30 2019-04-22 15:49:30 Office Visit Tammy Diaz [facility] [id number] 2019-03-25 13:54:08 2019-03-25 15:52:52 Office Visit Pete Goode [facility] [id number] 2019-02-26 15:23:00 2019-02-26 20:30:00 Departed Emergency Room 1 FLIP CUNNINGHAM [facility] [id number] [facility] 2019-02-01 09:48:00 2019-02-01 12:22:00 Departed Emergency Room 1 GLENDY MICHELLE [facility] [id number] [facility] 2019-01-16 08:03:00 2019-01-16 08:03:00 Registered Clinic 3 TARIQ JOE [facility] [id number] [facility] 2018-12-10 16:38:00 2018-12-11 00:47:00 Departed Emergency Room 1 GLENDY MICHELLE [facility] [id number] [facility] 2018-06-26 13:31:00 2018-06-26 13:31:00 Outpatient [id number] 2018-05-24 09:32:00 2018-05-24 09:32:00 Registered Clinic 3 MEDARDO DAVIS [facility] [id number] [facility] 2018-02-22 06:04:00 2018-02-22 06:04:00 Registered Surgical Day Care [facility] [id number] [facility] Results Test Description Test Time Test Comments Results Result Comments Source - US ABDOMEN COMPLETE 2019-05-06 11:23:00 Name : ANTONIO MILLIGAN [facility] : 1950 Age/S: 68 / F [address] [facility] Unit #: [id number] Loc: [place] [address] Phys: Jason Whaley MD Acct: [id number] Dis Date: Status: REG CLI PHONE #: [phone] Exam Date: 05/06/2019 1006 FAX #: [phone] Reason: R18.8,R60.1 EXAMS: CPT CODE: [id number] US ABDOMEN COMPLETE 45505 HISTORY: R18.8,R60.1 TECHNIQUE: Static grayscale and color Doppler images from real time sono graphic evaluation of the abdomen. Spectral waveform analysis of the portal vein. COMPARISON: CT 01/02/19 FINDINGS: LIVER: Hepatomegaly, measuring 21.6 cm craniocaudal. Normal echogenicity. No intrahepatic biliary dilation. Hepatopedal flow identified within the portal vein. GALLBLADDER: Cholecystectomy. COMMON DUCT: Normal caliber at 4 mm. PANCREAS: Obscured. KIDNEYS: Normal parenchymal echogenicity. Right kidney measures 12.8 x 6.1 x 6.5 cm. Left kidney measures 12.2 x 6.5 x 5.7 cm. No hydronephrosis. SPLEEN: Enlarged up to 14.2 cm. Normal parenchymal echogenicity. AORTA/IVC: No abdominal aortic aneurysm. Patent IVC. OTHER: Small ascites. IMPRESSION: Limited visualization due to body habitus. Hepatosplenomegaly. Small ascites. Cholecystectomy. LOCATION: LP at 1123 Reported and signed by: Kinjal Lee D.O. CC: Jason Whaley MD Technologist: Silvio Macias Trnscb Date/Time: 05/06/2019 (1123) [email or web address] Orig Print D/T: S: 05/06/2019 (1126) Probe: PAGE 1 Signed Report Creatine Kinase MB 2019-02-26 19:47:00 Test Item Creatine Kinase MB (test code = 02079-5) 2.50 0-5.0 [facility] Hospital[facility]roponin [id number] 19:47:00* Test Item Value Reference Range Interpretation Comments Troponin I (test code = VFJ6022) 0.034 0-0.300 [facility] Qmknw3915-24-03 19:31:00* Test Item Value Reference Range Interpretation Comments Sodium Level (test code = 2951-2) 142 136-145 [facility] HospitalPotassium [id number] 19:31:00* Test Item Value Reference Range Interpretation Comments Potassium Level (test code = 2823-3) 4.7 3.5-5.1 [facility] HospitalChloride [id number] 19:31:00* Test Item Value Reference Range Interpretation Comments Chloride Level (test code = 2075-0) 106 98-107 [facility] HospitalCarbon Dioxide [id number] 19:31:00* Test Item Value Reference Range Interpretation Comments Carbon Dioxide Level (test code = 2028-9) 27 22-29 [facility] HospitalAnion [id number] 19:31:00* Test Item Value Reference Range Interpretation Comments Anion Gap (test code = 02805-4) 13.7 8-16 [facility] HospitalBlood Urea Jmouhcdf8901-42-47 19:31:00* Test Item Value Reference Range Interpretation Comments Blood Urea Nitrogen (test code = 3094-0) 12 7-26 [facility] HospitalCreatinine2020-01-21 19:31:00* Test Item Value Reference Range Interpretation Comments Creatinine (test code = 2160-0) 0.68 0.57-1.11 [facility] HospitalBUN/Creatinine Dovpg4561-28-79 19:31:00* Test Item Value Reference Range Interpretation Comments BUN/Creatinine Ratio (test code = 3097-3) 18 6-25 [facility] HospitalEstimat Glomerular Filtration Rate 2019-02-26 19:31:00* Test Item Value Reference Range Interpretation Comments Estimat Glomerular Filtration Rate (test code = 045070390) > 60 >60 Ranges were taken from the National Kidney Disease Education Program and the [facility] literature.Reference ranges:60 or greater: Fsvxvx30-25 ( for 3 consecutive months): Chronic kidney disease 15 or less: Kidney failureFormerly [facility] HospitalGlucose Jzrpe1116-99-41 19:31:00* Test Item Value Reference Range Interpretation Comments Glucose Level (test code = UXS8721) 133 74-118 H [facility] HospitalCalcium Velid4856-45-77 19:31:00* Test Item Value Reference Range Interpretation Comments Calcium Level (test code = 02841-7) 9.1 8.4-10.2 [facility] HospitalTotal Ybatjmjmn9178-60-81 19:31:00* Test Item Value Reference Range Interpretation Comments Total Bilirubin (test code = 1975-2) 0.5 0.2-1.2 [facility] HospitalAspartate Amino Transf (AST/SGOT) 2019-02-26 19:31:00* Test Item Value Reference Range Interpretation Comments Aspartate Amino Transf (AST/SGOT) (test code = Aspartate Amino Transf (AST/SGOT)) 16 5-34 [facility] HospitalAlanine Aminotransferase (ALT/SGPT) 2019-02-26 19:31:00* Test Item Value Reference Range Interpretation Comments Alanine Aminotransferase (ALT/SGPT) (test code = 1742-6) 9 0-55 [facility] HospitalTotal Fmsixcd0898-05-14 19:31:00* Test Item Value Reference Range Interpretation Comments Total Protein (test code = 2885-2) 6.8 6.5-8.1 [facility] HospitalAlbumin2020-01-21 19:31:00* Test Item Value Reference Range Interpretation Comments Albumin (test code = 1751-7) 3.5 3.5-5.0 [facility] HospitalGlobulin2020-01-21 19:31:00* Test Item Value Reference Range Interpretation Comments Globulin (test code = 03129-0) 3.3 2.3-3.5 [facility] HospitalAlbumin/Globulin Eirzr4002-04-62 19:31:00 * Test Item Value Reference Range Interpretation Comments Albumin/Globulin Ratio (test code = 1759-0) 1.1 0.8-2.0 [facility] HospitalAlkaline Gmcjaitueba1449-90-50 19:31:00* Test Item Value Reference Range Interpretation Comments Alkaline Phosphatase (test code = 6768-6) 87 40-150 [facility] HospitalCreatine Idfgtw1062-09-21 19:31:00* Test Item Value Reference Range Interpretation Comments Creatine Kinase (test code = 2157-6) 42 29-168 [facility] HospitalProthrombin Uwke6587-66-69 19:29:00* Test Item Value Reference Range Interpretation Comments Prothrombin Time (test code = 5902-2) 23.7 11.9-14.5 H [facility] HospitalProthromb Time International Ratio 2019-02-26 19:29:00* Test Item Value Reference Range Interpretation Comments Prothromb Time International Ratio (test code = 6301-6) 2.04 Oral Anticoagulant Therapy INR Values:1. Low Intensity Therapy 1.5 - 2.02 . Moderate Intensity Therapy 2.0 - 3.03. High Intensity Therapy(1) 2.5 - 3. 54. High Intensity Therapy(2) 3.0 - 4.05. Panic Value INR > 5.0 [facility] HospitalActivated Partial Thromboplast Time 2019-02-26 19:29:00* Test Item Value Reference Range Interpretation Comments Activated Partial Thromboplast Time (test code = 52021-6) 39.4 23.8-35.5 H [facility] HospitalWhite Blood Bmdcc8625-90-59 19:19:00* Test Item Value Reference Range Interpretation Comments White Blood Count (test code = 6690-2) 8.48 4.8-10.8 [facility] HospitalRed Blood Ekowg5238-56-75 19:19:00* Test Item Value Reference Range Interpretation Comments Red Blood Count (test code = 789-8) 4.59 3.6-5.1 [facility] HospitalHemoglobin2020-01-21 19:19:00* Test Item Value Reference Range Interpretation Comments Hemoglobin (test code = 99723-7) 12.2 12.0-16.0 [facility] HospitalHematocrit2020-01-21 19:19:00* Test Item Value Reference Range Interpretation Comments Hematocrit (test code = 4544-3) 41.9 34.2-44.1 [facility] HospitalMean Corpuscular Svgcim0063-33-84 19:19:00* Test Item Value Reference Range Interpretation Comments Mean Corpuscular Volume (test code = 787-2) 91.3 81-99 [facility] HospitalMean Corpuscular Ddojfxanbn9477-28-08 19:19:00* Test Item Value Reference Range Interpretation Comments Mean Corpuscular Hemoglobin (test code = 785-6) 26.6 28-32 L [facility] HospitalMean Corpuscular Hemoglobin Concent 2019-02-26 19:19:00* Test Item Value Reference Range Interpretation Comments Mean Corpuscular Hemoglobin Concent (test code = 786-4) 29.1 31-35 L [facility] HospitalRed Cell Distribution Jddum2983-77-36 19:19:00* Test Item Value Reference Range Interpretation Comments Red Cell Distribution Width (test code = 39423-0) 14.8 11.7 -14.4 H [facility] HospitalPlatelet Khhgb6955-56-02 19:19:00* Test Item Value Reference Range Interpretation Comments Platelet Count (test code = 777-3) 348 140-360 [facility] HospitalNeutrophils (%) (Auto)2019-02-26 19:19:00 * Test Item Value Reference Range Interpretation Comments Neutrophils (%) (Auto) (test code = 97904-8) 82.5 38.7-80.0 H [facility] HospitalLymphocytes (%) (Auto)2019-02-26 19:19:00 * Test Item Value Reference Range Interpretation Comments Lymphocytes (%) (Auto) (test code = 736-9) 8.6 18.0-39.1 L [facility] HospitalMonocytes (%) (Auto)2019-02-26 19:19:00* Test Item Value Reference Range Interpretation Comments Monocytes (%) (Auto) (test code = 5905-5) 6.0 4.4-11.3 [facility] HospitalEosinophils (%) (Auto)2019-02-26 19:19:00 * Test Item Value Reference Range Interpretation Comments Eosinophils (%) (Auto) (test code = 713-8) 1.8 0.0-6.0 [facility] HospitalBasophils (%) (Auto)2019-02-26 19:19:00* Test Item Value Reference Range Interpretation Comments Basophils (%) (Auto) (test code = 706-2) 0.5 0.0-1.0 [facility] HospitalIM GRANULOCYTES %2019-02-26 19:19:00* Test Item Value Reference Range Interpretation Comments IM GRANULOCYTES % (test code = IM GRANULOCYTES %) 0.6 0.0- 1.0 [facility] HospitalNeutrophils # (Auto)2019-02-26 19:19:00* Test Item Value Reference Range Interpretation Comments Neutrophils # (Auto) (test code = 751-8) 7.0 2.1-6.9 H [facility] HospitalLymphocytes # (Auto)2019-02-26 19:19:00* Test Item Value Reference Range Interpretation Comments Lymphocytes # (Auto) (test code = 03059-2) 0.7 1.0-3.2 L [facility] HospitalMonocytes # (Auto)2019-02-26 19:19:00* Test Item Value Reference Range Interpretation Comments Monocytes # (Auto) (test code = 742-7) 0.5 0.2-0.8 [facility] HospitalEosinophils # (Auto)2019-02-26 19:19:00* Test Item Value Reference Range Interpretation Comments Eosinophils # (Auto) (test code = 711-2) 0.2 0.0-0.4 [facility] HospitalBasophils # (Auto)2019-02-26 19:19:00* Test Item Value Reference Range Interpretation Comments Basophils # (Auto) (test code = 704-7) 0.0 0.0-0.1 [facility] HospitalAbsolute Immature Granulocyte (auto 2019-02-26 19:19:00* Test Item Value Reference Range Interpretation Comments Absolute Immature Granulocyte (auto (franchesca t code = Absolute Immature Granulocyte (auto) 0.05 0-0.1 [facility] HospitalCHEST 2 YEHJQ6781-65-51 17:11:00 [place] [address] Patient Name: ANTONIO MILLIGAN MR #: [id number] : 1950 Age/Sex: 68/F Req #: [id number] Adm Physician: Ordered by: FLIP CUNNINGHAM MD Report #: [id number] Location: ER Room/Bed: Procedure: [id number] DX /CHEST 2 VIEWS Exam Date: 02/26/19 Exam Time: 1650 REPORT STATUS: Signed EXAMINATION: CHEST 2 VIEWS INDICATION: Shortness of breath COMPARISON: None FINDINGS: LINES/TUBES:None LUNGS:The lungs are mildly hyperi nflated. There is perihilar fullness and indistinctness of the pulmonary vascu lature. No focal consolidation. PLEURA:No pleural effusion or pneumothorax. MEDIASTINUM:Marked cardiomegaly. Atherosclerotic calcifications of the tho racic aorta. BONES/SOFT TISSUES:No acute osseous injury. ABDOMEN:No free air under the diaphragm. IMPRESSION: Cardiomegaly and pulmonary edema. No focal pneumonia. Signed by: Curtis Adame MD on 02/26/2019 5:13 PM Dictated By: CURTIS ADAME MD 12 COPY TO: SHIMON CUNNINGHAM MD SHOULDER LEFT 1 [id number] 11:38:00 [place] [address] Patient Name: ANTONIO MILLIGAN MR #: [id number] : 1950 Age/Sex: 68/F Req #: [id number] Adm Physician: Ordered by: MITCHELL CARDOZA ADDICTION NURSE Report #: [id number] Location: ER Room/Bed: Procedure: [id number] DX/SHOULDER LEFT 1 VIEW Exam Date: 02/01/19 Exam Phu e: 1115 REPORT STATUS: Signed Le ft shoulder, one view Clinical indication: Post reduction Impression: Examination is limited by patient body habitus and portable technique. The humeral head appears normally positioned on the single scapular Y view. Sig alka by: Darrion Antonio MD on 02/01/2019 11:40 AM Dictated By: DARRION ANTONIO MD 1140 Tra nscribed By: KODY on 02/01/19 1140 COPY TO: MITCHELL CARDOZA NP GASTRIC ISAHADDP1377-30-35 19:09:00 [place] [id number] [place] [address] Patient Name: ANTONIO MILLIGAN MR #: [id number] : 1950 Age/Sex: 68/F Req #: [id number] Adm Physician: Ordered by: TARIQ BURNS MD Report #: [id number] Location: [place] Room/Bed: Procedure: [id number] NM /GASTRIC EMPTYING Exam Date: 01/16/19 Exam Time: 084 5 REPORT STATUS: Signed Solid-ph ase gastric emptying study Reason for examination: R14.0 Abdominal bloating The protocol used for this study is based on the Consensus Recommendations for Gastric Scintigraphy by the [place] [employer] ociety and the Society of Nuclear Medicine. Clinical information: The pat ient is diabetic; blood sugar this morning is 169 mg/dL. The patient has not had previous gastrointestinal surgery other than cholecystectomy and appendect vinay more than 10 years ago. The patient is not on any medications expected to affect gastric motility. The patient has been fasting for at least 6 hours p rior to this exam. Radiopharmaceutical: Tc-99m sulfur colloid 1 mCi Re port: The radiopharmaceutical was added to 1/2 cup egg whites that were then prepared and served with 2 pieces of white bread toasted, 30 grams of jam and 4 ounces of water. The patient took the meal orally without difficulty. Images were obtained of the abdomen in the anterior and posterior projections at 10 minutes post the meal and at 1, 2 and 3 hours. Uptake was determined from the geometric mean of the anterior and posterior counts and the counts were prince ected for decay of the radiolabel. The percent gastric retention of the lab eled meal at: 1 hour was 25% (normal 30-90%) 2 hours was 4% (normal < 60%) 3 hours was 2% (normal <30%) 4 hour measurement not obtained because gastric retention was less than 10% at 3 hours. Impression: Gastric emptying is rapid. This may be seen in functional dyspepsia, irritable bowel syndrome or, in the appropriate clinical setting, dumping syndrome. Signed by: Dr. Gordon Pacheco M.D. on 01/16/2019 7:13 PM Dictated By: GORDON PACHECO MD 12 Transcribed By: KODY on 01/16/191912 COPY TO: TARIQ BURNS MD CREATININE W ESTIMATED [id number] 13:39:00* Test Item Value Reference Range Interpretation Comments BEDSIDE CREATININE (test code = CREATBED) mg/dL 0.7-1.3 N GLOMERULAR FILTRATION RATE POC (test code = GFRBED) 76 >6 0 H CREATININE W ESTIMATED [id number] 13:39:00* Test Item Value Reference Range Interpretation Comments BEDSIDE CREATININE (test code = CREATBED) 0.76 mg/dL 0.7-1.3 N GLOMERULAR FILTRATION RATE POC (test code = GFRBED) > 60 >6 0 H Previously reported result: 76 Edited by: SALLY on 01/08/19:23943903/11/18 1339: GFRBED previously reported as: 76 H - CT ABD PELVIS W/YLIC2438-76-02 09:56:00 Name: ANTONIO MILLIGAN [facility] : 1950 Age/S: 68 / F [address] [facility] Unit #: [id number] Loc: [place] [address] Phys: Cezar Henao MD Acct: [id number] Dis Date: Status: REG CLI PHONE #: [phone] Exam Date: 01/02/2019909 FAX #: [phone] Reason: HERNIA EXAMS: CPT CODE: [id number] CT ABD PELVIS W/CONT 31346 REASON FOR EXAM: HERNIA EXAM ORDER DATE: 01/02/2019 8:10 AM Ordering MViktoria: Cezar Henao MD PROCEDURE: - CT ABD PELVIS W/CONT contrast-enhanced axial CT images were acquired through the abdomen/pelvis at 5 mm intervals. Sagittal and coronal reformatted images were generated. Automated exposure control was utilized for this reduction. Phases of contrast: venous and delayed COMPARISON: Head CT October 16, 2015 FINDINGS: Visualized thorax: There is mild subsegmental atelectasis in the lung bases Hepatobiliary system: Hepatic steatosis. Gallbladder is absent Pancreas: Normal Spleen: Normal Adrenal glands: Normal Genitourinary system: Prior hysterectomy. Otherwise normal Gastrointestinal tract and appendix: Diverticulosis of the sigmoid colon without evidence of diverticulitis. Stomach and small bowel and the remainder of the large bowel are within normal limits. Appendix not clearly visualized however no inflammatory changes are seen in the expected region of the appendix. Abdominal vascular structures: Normal Peritoneum and retr operitoneum: No free fluid or free air. No omental or mesenteric masses. No abnormal lymph nodes. Musculoskeletal structures and abdominal wall: There are degenerative changes seen throughout the visualized spine. No hernia in the inguinal region or in the anterior abdominal wall is ap preciated. No hiatal hernia. PAGE 1 Signed Repo rt (CONTINUED) Name: SRINIANTONIO FROILAN [facility] : 1950 Age/S: 68 / F [address] [facility] Unit #: [id number] Loc: [place], [place] [address] Phys: Cezar Henao MD Acct: [id number] Dis Date: Status: REG CLI PHONE #: [phone] Exam Date: 01/02/2019 0910 FAX #: [phone] Reason: HERNIA EXAMS: CPT CODE: [id number] CT ABD PELVIS W/CONT 36782 <Continued> IMPRESSION: No acute intra-abdominal process. No hernias are visualized. Location: [facility] at 0956 Reported and signed by: Pawel Adams MD CC: Jason Whaley MD Technologist:Larry Soliman RT(R),(MR),(CT); CTDI: DLP: Trnscb Date/Time: 01/02/2019 (0956) [email or web address] Orig Print D/T: S: 01/02/2019 (4405) PAGE [address] ABDOMEN/PELVIS [id number] 00:07:00 [facility] [address] [address] Patient Name: ANTONIO MILLIGAN MR #: [id number] : 1950 Age/Sex: 68/F Req #: [id number] Adm Physician: Ordered by: ADOLFO ABDI MD Report #: [id number] Location: ER Room/Bed: Procedure: [id number] [id number] CT/CT ABDOMEN/PELVIS W Exam Date: 12/10/18 Exam Time: 2345 REPORT STATUS: Signed EXAM: CT Abdomen and Pelvis WITH contrast INDICATION: Abdominal pain, n ausea, vomiting, diarrhea. COMPARISON: None. TECHNIQUE: Abdomen and pelv is were scanned utilizing a multidetector helical scanner from the lung base t o the pubic symphysis after administration of IV contrast. Coronal and sagitta l reformations were obtained. Routine protocol was performed. Scan was perform ed when during portal venous phase. IV CONTRAST: 100 cc of Isovue 370 ORAL CONTRAST: None. COMPLICATIONS: None RADIATION DOSE: Total DLP: 1257.8 mGy*cm Estimated effective dose: (DLP x 0.015 x size factor) mSv CTDIvol has been reviewed. It is below the limi ts set by the Radiation Protocol Committee (RPC). FINDINGS: LINES and T UBES: None. LOWER THORAX: Scattered coronary atherosclerosis. Patchy depen dent atelectasis. HEPATOBILIARY: Diffuse mild hepatic steatosis. No evide nce of focal lesion. No biliary ductal dilation. GALLBLADDER: The gallbl adder is surgically absent. SPLEEN: No splenomegaly. PANCREAS: No foc al masses or ductal dilatation. ADRENALS: No adrenal nodules KIDNEY S/URETERS: Kidneys enhance symmetrically. No evidence of hydronephrosis, solid mass, or stone. GI TRACT: No evidence of wall thickening or distension. T he appendix is not visualized, however there are no secondary signs of appendi citis. Scattered colonic diverticulosis without CT evidence of diverticulitis. PELVIC ORGANS/BLADDER: Unremarkable. LYMPH NODES: No lymphadenopathy. VESSELS: Scattered mild atherosclerotic calcifications. PERITONEUM / RETROPERITONEUM: No free air or fluid. BONES AND SOFT TISSUES: Unremarkabl e. CONCLUSION: Diffuse mild hepatic steatosis. Status post cholecyst ectomy. Signed by: Dr. Lola Johnson MD on 12/11/2018 12:13 AM Dictated By: LOLA JOHNSON MD Tr anscribed By: KODY on 12/11/1812 COPY TO: ADOLFO ABDI MD Creatine Kinase [id number] 19:03:00* Test Item Value Reference Range Interpretation Comments Creatine Kinase MB (test code = 45078-6) 0.90 0-5.0 [place] [id number] 19:03:00* Test Item Value Reference Range Interpretation Comments Troponin I (test code = KFY4926) 0.010 0-0.300 [facility] Kin[facility] JR9296-23-99 19:03:00* Test Item Value Reference Range Interpretation Comments Creatine Kinase MB (test code = 23945-9) 0.90 0-5.0 [place] [id number] 19:03:00* Test Item Value Reference Range Interpretation Comments Troponin I (test code = UUT5683) 0.010 0-0.300 [facility] Vesxy9257-07-74 18:57:00* Test Item Value Reference Range Interpretation Comments Sodium Level (test code = 2951-2) 134 136-145 L [facility] HospitalPotassium Pxuth8232-98-06 18:57:00* Test Item Value Reference Range Interpretation Comments Potassium Level (test code = 2823-3) 3.7 3.5-5.1 [facility] HospitalChloride Pjlur6489-48-27 18:57:00* Test Item Value Reference Range Interpretation Comments Chloride Level (test code = 2075-0) 100 98-107 [facility] HospitalCarbon Dioxide Qvlqv6796-34-91 18:57:00* Test Item Value Reference Range Interpretation Comments Carbon Dioxide Level (test code = 2028-9) 21 22-29 L [facility] HospitalAnion Ewf8711-28-72 18:57:00* Test Item Value Reference Range Interpretation Comments Anion Gap (test code = 09265-9) 16.7 8-16 H [facility] HospitalBlood Urea Uvvlnpve7700-57-87 18:57:00* Test Item Value Reference Range Interpretation Comments Blood Urea Nitrogen (test code = 3094-0) 18 7-26 [facility] HospitalCreatinine2019-11-04 18:57:00* Test Item Value Reference Range Interpretation Comments Creatinine (test code = 2160-0) 1.02 0.57-1.11 [facility] HospitalBUN/Creatinine Gedzm2310-07-27 18:57:00* Test Item Value Reference Range Interpretation Comments BUN/Creatinine Ratio (test code = 3097-3) 18 6-25 [facility] HospitalEstimat Glomerular Filtration Rate 2018-12-10 18:57:00* Test Item Value Reference Range Interpretation Comments Estimat Glomerular Filtration Rate (test code = 996483568) 54 >60 L Ranges were taken from the National Kidney Disease Education Program and the [place] [employer] literature.Reference ranges:60 or greater: Fmvicx99-62 ( for 3 consecutive months): Chronic kidney disease 15 or less: Kidney failureFormerly [facility] HospitalGlucose Chzkm4659-22-49 18:57:00* Test Item Value Reference Range Interpretation Comments Glucose Level (test code = CNN3170) 226 74-118 H [facility] HospitalCalcium Rfqmu9496-81-91 18:57:00* Test Item Value Reference Range Interpretation Comments Calcium Level (test code = 86314-5) 9.3 8.4-10.2 [facility] HospitalTotal Zftigehdd4458-60-87 18:57:00* Test Item Value Reference Range Interpretation Comments Total Bilirubin (test code = 1975-2) 0.5 0.2-1.2 [facility] HospitalAspartate Amino Transf (AST/SGOT) 2018-12-10 18:57:00* Test Item Value Reference Range Interpretation Comments Aspartate Amino Transf (AST/SGOT) (test code = Aspartate Amino Transf (AST/SGOT)) 10 5-34 [facility] HospitalAlanine Aminotransferase (ALT/SGPT) 2018-12-10 18:57:00* Test Item Value Reference Range Interpretation Comments Alanine Aminotransferase (ALT/SGPT) (test code = 1742-6) 12 0-55 [facility] HospitalTotal Zcmyluh7254-95-09 18:57:00* Test Item Value Reference Range Interpretation Comments Total Protein (test code = 2885-2) 7.1 6.5-8.1 [facility] HospitalAlbumin2019-11-04 18:57:00* Test Item Value Reference Range Interpretation Comments Albumin (test code = 1751-7) 3.6 3.5-5.0 [facility] HospitalGlobulin2019-11-04 18:57:00* Test Item Value Reference Range Interpretation Comments Globulin (test code = 50833-1) 3.5 2.3-3.5 [facility] HospitalAlbumin/Globulin Yqvhq2026-52-33 18:57:00 * Test Item Value Reference Range Interpretation Comments Albumin/Globulin Ratio (test code = 1759-0) 1.0 0.8-2.0 [facility] HospitalAlkaline Mytfdgcndnq8756-00-75 18:57:00* Test Item Value Reference Range Interpretation Comments Alkaline Phosphatase (test code = 6768-6) 94 40-150 [facility] HospitalCreatine Phcscw1644-43-04 18:57:00* Test Item Value Reference Range Interpretation Comments Creatine Kinase (test code = 2157-6) 37 29-168 [facility]odium Swfuz7969-41-84 18:57:00* Test Item Value Reference Range Interpretation Comments Sodium Level (test code = 2951-2) 134 136-145 L [facility] HospitalPotassium Llgyg3405-33-53 18:57:00* Test Item Value Reference Range Interpretation Comments Potassium Level (test code = 2823-3) 3.7 3.5-5.1 [facility] HospitalChloride Jozby9407-50-99 18:57:00* Test Item Value Reference Range Interpretation Comments Chloride Level (test code = 2075-0) 100 98-107 [facility] HospitalCarbon Dioxide Feenx0441-63-47 18:57:00* Test Item Value Reference Range Interpretation Comments Carbon Dioxide Level (test code = 2028-9) 21 22-29 L [facility] HospitalAnion Xxs2738-60-73 18:57:00* Test Item Value Reference Range Interpretation Comments Anion Gap (test code = 10702-7) 16.7 8-16 H [facility] HospitalBlood Urea Nsvhkgfh4117-51-74 18:57:00* Test Item Value Reference Range Interpretation Comments Blood Urea Nitrogen (test code = 3094-0) 18 7-26 [facility] HospitalCreatinine2019-11-04 18:57:00* Test Item Value Reference Range Interpretation Comments Creatinine (test code = 2160-0) 1.02 0.57-1.11 [facility] HospitalBUN/Creatinine Sizut7148-68-37 18:57:00* Test Item Value Reference Range Interpretation Comments BUN/Creatinine Ratio (test code = 3097-3) 18 6-25 [facility] HospitalEstimat Glomerular Filtration Rate 2018-12-10 18:57:00* Test Item Value Reference Range Interpretation Comments Estimat Glomerular Filtration Rate (test code = 712752800) 54 >60 L Ranges were taken from the National Kidney Disease Education Program and the [place] [facility] careal Kid[employer] Foundation literature.Reference ranges:60 or greater: Pboyif88-30 ( for 3 consecutive months): Chronic kidney disease 15 or less: Kidney failureFormerly [facility] HospitalGlucose Ffjar6152-27-50 18:57:00* Test Item Value Reference Range Interpretation Comments Glucose Level (test code = GLR6397) 226 74-118 H [facility] HospitalCalcium Ylgbq8820-66-84 18:57:00* Test Item Value Reference Range Interpretation Comments Calcium Level (test code = 28959-9) 9.3 8.4-10.2 [facility] HospitalTotal Fqqnwrstw0675-33-75 18:57:00* Test Item Value Reference Range Interpretation Comments Total Bilirubin (test code = 1975-2) 0.5 0.2-1.2 [facility] HospitalAspartate Amino Transf (AST/SGOT) 2018-12-10 18:57:00* Test Item Value Reference Range Interpretation Comments Aspartate Amino Transf (AST/SGOT) (test code = Aspartate Amino Transf (AST/SGOT)) 10 5-34 [facility] HospitalAlanine Aminotransferase (ALT/SGPT) 2018-12-10 18:57:00* Test Item Value Reference Range Interpretation Comments Alanine Aminotransferase (ALT/SGPT) (test code = 1742-6) 12 0-55 [facility] Fuijnef0963-25-31 18:57:00* Test Item Value Reference Range Interpretation Comments Total Protein (test code = 2885-2) 7.1 6.5-8.1 [facility] HospitalAlbumin2019-11-04 18:57:00* Test Item Value Reference Range Interpretation Comments Albumin (test code = 1751-7) 3.6 3.5-5.0 [facility] HospitalGlobulin2019-11-04 18:57:00* Test Item Value Reference Range Interpretation Comments Globulin (test code = 89001-7) 3.5 2.3-3.5 [facility] HospitalAlbumin/Globulin Abfvu0196-87-83 18:57:00 * Test Item Value Reference Range Interpretation Comments Albumin/Globulin Ratio (test code = 1759-0) 1.0 0.8-2.0 [facility] HospitalAlkaline Mfgxszncnzc0640-53-20 18:57:00* Test Item Value Reference Range Interpretation Comments Alkaline Phosphatase (test code = 6768-6) 94 40-150 [facility] HospitalCreatine Yyslpy0590-43-71 18:57:00* Test Item Value Reference Range Interpretation Comments Creatine Kinase (test code = 2157-6) 37 29-168 [facility] HospitalUrine TVX5317-40-22 18:56:00* Test Item Value Reference Range Interpretation Comments Urine WBC (test code = 5821-4) NONE 0-5 [facility] HospitalUrine VYE0912-80-86 18:56:00* Test Item Value Reference Range Interpretation Comments Urine RBC (test code = 30560-5) NONE 0-5 [facility] Waqqcnjn0691-87-26 18:56:00* Test Item Value Reference Range Interpretation Comments Urine Bacteria (test code = 99496-6) MANY NONE H [facility] HospitalUrine Epithelial Rrhdk4410-30-39 18:56:00 * Test Item Value Reference Range Interpretation Comments Urine Epithelial Cells (test code = 45926-7) MODERATE NONE [facility] MXY3755-27-69 18:56:00* Test Item Value Reference Range Interpretation Comments Urine WBC (test code = 5821-4) NONE 0-5 [facility] AIA1145-22-09 18:56:00* Test Item Value Reference Range Interpretation Comments Urine RBC (test code = 95029-5) NONE 0-5 [facility] Evsxlrfv7070-29-31 18:56:00* Test Item Value Reference Range Interpretation Comments Urine Bacteria (test code = 60376-1) MANY NONE H [facility] HospitalUrine Epithelial Bcpqg0415-09-02 18:56:00 * Test Item Value Reference Range Interpretation Comments Urine Epithelial Cells (test code = 59445-1) MODERATE NONE [facility] HospitalUrine PFM3608-26-19 18:56:00* Test Item Value Reference Range Interpretation Comments Urine WBC (test code = 5821-4) NONE 0-5 [facility] SNW0641-37-20 18:56:00* Test Item Value Reference Range Interpretation Comments Urine RBC (test code = 33145-8) NONE 0-5 [facility] Vojituoc5107-03-56 18:56:00* Test Item Value Reference Range Interpretation Comments Urine Bacteria (test code = 22874-6) MANY NONE H [facility] Epithelial Qvxbg1800-05-11 18:56:00 * Test Item Value Reference Range Interpretation Comments Urine Epithelial Cells (test code = 56469-6) MODERATE NONE [facility] HospitalUrine Qmioa3140-14-05 18:43:00* Test Item Value Reference Range Interpretation Comments Urine Color (test code = 5778-6) YELLOW YELLOW [facility] HospitalUrine Uksuceg5472-13-16 18:43:00* Test Item Value Reference Range Interpretation Comments Urine Clarity (test code = 40088-0) CLOUDY CLEAR H [facility] HospitalUrine Specific Tqzuwtv7105-64-83 18:43:00 * Test Item Value Reference Range Interpretation Comments Urine Specific [place] (test code = 5811-5) 1.020 1.010-1.02 5 [facility] HospitalUrine vK9547-26-10 18:43:00* Test Item Value Reference Range Interpretation Comments Urine pH (test code = 17869-9) 6 5-7 [facility] Leukocyte Svvsjbgo4377-01-17 18:43:00* Test Item Value Reference Range Interpretation Comments Urine Leukocyte Esterase (test code = 74559-9) NEGATIVE NEGATIV E [facility] HospitalUrine Svabyef5208-27-52 18:43:00* Test Item Value Reference Range Interpretation Comments Urine Nitrite (test code = 28193-7) NEGATIVE NEGATIVE [facility] HospitalUrine Ghvulbe8918-92-41 18:43:00* Test Item Value Reference Range Interpretation Comments Urine Protein (test code = 35061-1) 1+ NEGATIVE H [facility] HospitalUrine Glucose (UA)2018-12-10 18:43:00* Test Item Value Reference Range Interpretation Comments Urine Glucose (UA) (test code = 39124-3) NEGATIVE NEGATIVE [facility] HospitalUrine Pkchtqy9516-58-64 18:43:00* Test Item Value Reference Range Interpretation Comments Urine Ketones (test code = 74240-2) NEGATIVE NEGATIVE [facility] HospitalUrine Kmkvvvgvgbse6315-17-22 18:43:00* Test Item Value Reference Range Interpretation Comments Urine Urobilinogen (test code = 32053-6) 0.2 0.2-1 [facility] HospitalUrine Jcfhshqdy8444-96-81 18:43:00* Test Item Value Reference Range Interpretation Comments Urine Bilirubin (test code = 1977-8) SMALL NEGATIVE [facility] HospitalUrine Ugtoz2865-08-22 18:43:00* Test Item Value Reference Range Interpretation Comments Urine Blood (test code = 80174-1) NEGATIVE NEGATIVE [facility] HospitalUrine Guxmn2590-09-27 18:43:00* Test Item Value Reference Range Interpretation Comments Urine Color (test code = 5778-6) YELLOW YELLOW [facility] HospitalUrine Uzhalvr7856-95-59 18:43:00* Test Item Value Reference Range Interpretation Comments Urine Clarity (test code = 66357-9) CLOUDY CLEAR H [facility] HospitalUrine Specific Evjakvp4150-95-95 18:43:00 * Test Item Value Reference Range Interpretation Comments Urine Specific [place] (test code = 5811-5) 1.020 1.010-1.02 5 [facility] HospitalUrine sO7437-74-58 18:43:00* Test Item Value Reference Range Interpretation Comments Urine pH (test code = 62920-7) 6 5-7 [facility] HospitalU[facility] Leukocyte Xxwfklhe7335-34-55 18:43:00* Test Item Value Reference Range Interpretation Comments Urine Leukocyte Esterase (test code = 00008-6) NEGATIVE NEGATIV E [facility] HospitalUrine Quszebq9916-77-73 18:43:00* Test Item Value Reference Range Interpretation Comments Urine Nitrite (test code = 02801-5) NEGATIVE NEGATIVE [facility] HospitalUrine Kjfipwa1191-76-64 18:43:00* Test Item Value Reference Range Interpretation Comments Urine Protein (test code = 02425-2) 1+ NEGATIVE H [facility] HospitalUrine Glucose (UA)2018-12-10 18:43:00* Test Item Value Reference Range Interpretation Comments Urine Glucose (UA) (test code = 91369-0) NEGATIVE NEGATIVE [facility] HospitalUrine Hkadbhq9970-62-26 18:43:00* Test Item Value Reference Range Interpretation Comments Urine Ketones (test code = 60473-9) NEGATIVE NEGATIVE [facility] HospitalUrine Twjspvzfxuwa5856-95-82 18:43:00* Test Item Value Reference Range Interpretation Comments Urine Urobilinogen (test code = 15511-9) 0.2 0.2-1 [facility] HospitalUrine Hnzalseud6213-03-51 18:43:00* Test Item Value Reference Range Interpretation Comments Urine Bilirubin (test code = 1977-8) SMALL NEGATIVE [facility] HospitalU[facility] Szkiv3923-39-52 18:43:00* Test Item Value Reference Range Interpretation Comments Urine Blood (test code = 23854-1) NEGATIVE NEGATIVE [facility] HospitalUrine Rnbmp8796-57-26 18:43:00* Test Item Value Reference Range Interpretation Comments Urine Color (test code = 5778-6) YELLOW YELLOW [facility] HospitalUrine Ewrxyew8540-28-13 18:43:00* Test Item Value Reference Range Interpretation Comments Urine Clarity (test code = 89378-5) CLOUDY CLEAR H [facility] HospitalUrine Specific Qkptanw3174-85-41 18:43:00 * Test Item Value Reference Range Interpretation Comments Urine Specific [place] (test code = 5811-5) 1.020 1.010-1.02 5 [facility] HospitalU[facility] lV8475-41-80 18:43:00* Test Item Value Reference Range Interpretation Comments Urine pH (test code = 47602-0) 6 5-7 [facility] HospitalU[facility] Leukocyte Vkanxoft0419-80-29 18:43:00* Test Item Value Reference Range Interpretation Comments Urine Leukocyte Esterase (test code = 53777-1) NEGATIVE NEGATIV E [facility] HospitalUrine Bakvyew5281-00-68 18:43:00* Test Item Value Reference Range Interpretation Comments Urine Nitrite (test code = 72416-6) NEGATIVE NEGATIVE [facility] HospitalUrine Giujuje2537-86-68 18:43:00* Test Item Value Reference Range Interpretation Comments Urine Protein (test code = 41081-3) 1+ NEGATIVE H [facility] HospitalUrine Glucose (UA)2018-12-10 18:43:00* Test Item Value Reference Range Interpretation Comments Urine Glucose (UA) (test code = 62681-6) NEGATIVE NEGATIVE [facility] HospitalU[facility] Ktrrcaw5410-09-64 18:43:00* Test Item Value Reference Range Interpretation Comments Urine Ketones (test code = 59209-5) NEGATIVE NEGATIVE [facility] HospitalU[facility] Rubjwlacehuc6387-41-98 18:43:00* Test Item Value Reference Range Interpretation Comments Urine Urobilinogen (test code = 51176-6) 0.2 0.2-1 [facility] HospitalU[facility] Znsropoqv4462-06-85 18:43:00* Test Item Value Reference Range Interpretation Comments Urine Bilirubin (test code = 1977-8) SMALL NEGATIVE [facility] HospitalU[facility] Mvjxn5667-96-28 18:43:00* Test Item Value Reference Range Interpretation Comments Urine Blood (test code = 83727-0) NEGATIVE NEGATIVE [facility] HospitalWhite Blood Gqlas6551-27-10 18:33:00* Test Item Value Reference Range Interpretation Comments White Blood Count (test code = 6690-2) 12.07 4.8-10.8 H [facility] HospitalRed Blood Qohst7217-87-59 18:33:00* Test Item Value Reference Range Interpretation Comments Red Blood Count (test code = 789-8) 5.37 3.6-5.1 H [facility] HospitalHemoglobin2019-11-04 18:33:00* Test Item Value Reference Range Interpretation Comments Hemoglobin (test code = 28366-3) 15.3 12.0-16.0 [facility] HospitalHematocrit2019-11-04 18:33:00* Test Item Value Reference Range Interpretation Comments Hematocrit (test code = 4544-3) 47.9 34.2-44.1 H [facility] HospitalMean Corpuscular Hpqfiz4496-18-10 18:33:00* Test Item Value Reference Range Interpretation Comments Mean Corpuscular Volume (test code = 787-2) 89.2 81-99 [facility] HospitalMean Corpuscular Ltejxiyynb0572-57-09 18:33:00* Test Item Value Reference Range Interpretation Comments Mean Corpuscular Hemoglobin (test code = 785-6) 28.5 28-32 [facility] HospitalMean Corpuscular Hemoglobin Concent 2018-12-10 18:33:00* Test Item Value Reference Range Interpretation Comments Mean Corpuscular Hemoglobin Concent (test code = 786-4) 31.9 31-35 [facility] HospitalRed Cell Distribution Izgbf1315-32-77 18:33:00* Test Item Value Reference Range Interpretation Comments Red Cell Distribution Width (test code = 29051-8) 13.4 11.7 -14.4 [facility] HospitalPlatelet Srymf9294-65-73 18:33:00* Test Item Value Reference Range Interpretation Comments Platelet Count (test code = 777-3) 437 140-360 H [facility] HospitalNeutrophils (%) (Auto)2018-12-10 18:33:00 * Test Item Value Reference Range Interpretation Comments Neutrophils (%) (Auto) (test code = 48715-7) 79.6 38.7-80.0 [facility] HospitalLymphocytes (%) (Auto)2018-12-10 18:33:00 * Test Item Value Reference Range Interpretation Comments Lymphocytes (%) (Auto) (test code = 736-9) 8.0 18.0-39.1 L [facility] HospitalMonocytes (%) (Auto)2018-12-10 18:33:00* Test Item Value Reference Range Interpretation Comments Monocytes (%) (Auto) (test code = 5905-5) 8.9 4.4-11.3 [facility] HospitalEosinophils (%) (Auto)2018-12-10 18:33:00 * Test Item Value Reference Range Interpretation Comments Eosinophils (%) (Auto) (test code = 713-8) 2.7 0.0-6.0 [facility] HospitalBasophils (%) (Auto)2018-12-10 18:33:00* Test Item Value Reference Range Interpretation Comments Basophils (%) (Auto) (test code = 706-2) 0.3 0.0-1.0 [facility] HospitalIM GRANULOCYTES %2018-12-10 18:33:00* Test Item Value Reference Range Interpretation Comments IM GRANULOCYTES % (test code = IM GRANULOCYTES %) 0.5 0.0- 1.0 [facility] HospitalNeutrophils # (Auto)2018-12-10 18:33:00* Test Item Value Reference Range Interpretation Comments Neutrophils # (Auto) (test code = 751-8) 9.6 2.1-6.9 H [facility] HospitalLymphocytes # (Auto)2018-12-10 18:33:00* Test Item Value Reference Range Interpretation Comments Lymphocytes # (Auto) (test code = 54366-8) 1.0 1.0-3.2 [facility] HospitalMonocytes # (Auto)2018-12-10 18:33:00* Test Item Value Reference Range Interpretation Comments Monocytes # (Auto) (test code = 742-7) 1.1 0.2-0.8 H [facility] HospitalEosinophils # (Auto)2018-12-10 18:33:00* Test Item Value Reference Range Interpretation Comments Eosinophils # (Auto) (test code = 711-2) 0.3 0.0-0.4 [facility] (Auto)2018-12-10 18:33:00* Test Item Value Reference Range Interpretation Comments Basophils # (Auto) (test code = 704-7) 0.0 0.0-0.1 [facility] HospitalAbsolute Immature Granulocyte (auto 2018-12-10 18:33:00* Test Item Value Reference Range Interpretation Comments Absolute Immature Granulocyte (auto (franchesca t code = Absolute Immature Granulocyte (auto) 0.06 0-0.1 [facility] HospitalWhite Blood [id number] 18:33:00* Test Item Value Reference Range Interpretation Comments White Blood Count (test code = 6690-2) 12.07 4.8-10.8 H [facility] HospitalRed Blood [id number] 18:33:00* Test Item Value Reference Range Interpretation Comments Red Blood Count (test code = 789-8) 5.37 3.6-5.1 H [facility] HospitalHemoglobin2019-11-04 18:33:00* Test Item Value Reference Range Interpretation Comments Hemoglobin (test code = 54737-1) 15.3 12.0-16.0 [facility] HospitalHematocrit2019-11-04 18:33:00* Test Item Value Reference Range Interpretation Comments Hematocrit (test code = 4544-3) 47.9 34.2-44.1 H [facility] HospitalMean Corpuscular [id number] 18:33:00* Test Item Value Reference Range Interpretation Comments Mean Corpuscular Volume (test code = 787-2) 89.2 81-99 [facility] HospitalMean Corpuscular [id number] 18:33:00* Test Item Value Reference Range Interpretation Comments Mean Corpuscular Hemoglobin (test code = 785-6) 28.5 28-32 [facility] HospitalMean Corpuscular Hemoglobin Concent 2018-12-10 18:33:00* Test Item Value Reference Range Interpretation Comments Mean Corpuscular Hemoglobin Concent (test code = 786-4) 31.9 31-35 [facility] HospitalRed Cell Distribution [id number] 18:33:00* Test Item Value Reference Range Interpretation Comments Red Cell Distribution Width (test code = 10667-0) 13.4 11.7 -14.4 [facility] HospitalPlatelet [id number] 18:33:00* Test Item Value Reference Range Interpretation Comments Platelet Count (test code = 777-3) 437 140-360 H [facility] HospitalNeutrophils (%) (Auto)2018-12-10 18:33:00 * Test Item Value Reference Range Interpretation Comments Neutrophils (%) (Auto) (test code = 99590-7) 79.6 38.7-80.0 [facility] HospitalLymphocytes (%) (Auto)2018-12-10 18:33:00 * Test Item Value Reference Range Interpretation Comments Lymphocytes (%) (Auto) (test code = 736-9) 8.0 18.0-39.1 L [facility] HospitalMonocytes (%) (Auto)2018-12-10 18:33:00* Test Item Value Reference Range Interpretation Comments Monocytes (%) (Auto) (test code = 5905-5) 8.9 4.4-11.3 [facility] HospitalEosinophils (%) (Auto)2018-12-10 18:33:00 * Test Item Value Reference Range Interpretation Comments Eosinophils (%) (Auto) (test code = 713-8) 2.7 0.0-6.0 [facility] HospitalBasophils (%) (Auto)2018-12-10 18:33:00* Test Item Value Reference Range Interpretation Comments Basophils (%) (Auto) (test code = 706-2) 0.3 0.0-1.0 [facility] HospitalIM GRANULOCYTES %2018-12-10 18:33:00* Test Item Value Reference Range Interpretation Comments IM GRANULOCYTES % (test code = IM GRANULOCYTES %) 0.5 0.0- 1.0 [facility] HospitalNeutrophils # (Auto)2018-12-10 18:33:00* Test Item Value Reference Range Interpretation Comments Neutrophils # (Auto) (test code = 751-8) 9.6 2.1-6.9 H [facility] HospitalLymphocytes # (Auto)2018-12-10 18:33:00* Test Item Value Reference Range Interpretation Comments Lymphocytes # (Auto) (test code = 62653-8) 1.0 1.0-3.2 [facility] HospitalMonocytes # (Auto)2018-12-10 18:33:00* Test Item Value Reference Range Interpretation Comments Monocytes # (Auto) (test code = 742-7) 1.1 0.2-0.8 H [facility] HospitalEosinophils # (Auto)2018-12-10 18:33:00* Test Item Value Reference Range Interpretation Comments Eosinophils # (Auto) (test code = 711-2) 0.3 0.0-0.4 [facility] HospitalBasophils # (Auto)2018-12-10 18:33:00* Test Item Value Reference Range Interpretation Comments Basophils # (Auto) (test code = 704-7) 0.0 0.0-0.1 [facility] HospitalAbsolute Immature Granulocyte (auto 2018-12-10 18:33:00* Test Item Value Reference Range Interpretation Comments Absolute Immature Granulocyte (auto (franchesca t code = Absolute Immature Granulocyte (auto) 0.06 0-0.1 [facility] [id number] 18:38:00 [facility] [address] [address] Patient Name : ANTONIO MILLIGAN MR #: [id number] : 1950 Age/Sex: 68/F Adm Physician : MEDARDO DAVIS MD Admit Date : 05/24/18 Location : [place] Room/Bed : REPORT: Myoview Stress Te st DATE OF STUDY: 05/24/2018 09:40:00 PROCEDURE TITLE: Rest/stress sing le isotope SPECT imaging with pharmacologic stress and gated SPECT imaging. INDICATION: Chest pain. DESCRIPTION OF PROCEDURE: Pharmacologic stress t esting was performed with regadenoson per protocol. The heart rate was 57 beat s per minute at rest and increased to 81 beats per minute during the regadenoso n infusion. The resting blood pressure was 127/77 and increased to 156/79 mmHg , which is a normal response. The resting electrocardiogram demonstrated anurag l sinus rhythm. There were no ST-segment changes suggestive of myocardial isch emia. Myocardial perfusion imaging was performed at rest following the inje ction of 12 mCi of tetrofosmin. At peak pharmacologic effect, the patient was injected with 33 mCi of tetrofosmin. Gated post-stress tomographic imaging was performed. The overall quality of study is fair. Left ventricular cavity is noted to be normal size on the rest and stress studies. SPECT images demons trate homogeneous tracer distribution throughout the myocardium. Gated SPECT i maging reveals normal myocardial thickening and wall motion. The left ventricu lar ejection fraction was calculated at 56%. IMPRESSION: Myocardial perfu chana imaging is normal. Overall left ventricular systolic function was normal without regional wall motion abnormalities. Nilda Pereira MD ABS/SAV D: 18:38:08 /[id number] Sign ature Date Dictated By: NILDA PEREIRA MD Transcribed By: VELL on 0 05/24/18 <Electronically signed by NILDA PEREIRA MD><<Signature on File>> 06/01/18 1141 COPY TO: Bedside [id number] 08:28:00* Test Item Value Reference Range Interpretation Comments Bedside Glucose (test code = 96383-9) 201 70-120 H Meter ID: [id number] [facility] HospitalProthrombin Time 2018-02-22 07:18:00* Test Item Value Reference Range Interpretation Comments Prothrombin Time (test code = 5902-2) 18.7 11.9-14.5 H [facility] HospitalProthromb Time International Ratio 2018-02-22 07:18:00* Test Item Value Reference Range Interpretation Comments Prothromb Time International Ratio (test code = 6301-6) 1.44 Oral Anticoagulant Therapy INR Values:1. Low Intensity Therapy 1.5 - 2.02 . Moderate Intensity Therapy 2.0 - 3.03. High Intensity Therapy(1) 2.5 - 3. 54. High Intensity Therapy(2) 3.0 - 4.05. Panic Value INR > 5.0 [facility] HospitalActivated Partial Thromboplast Time 2018-02-22 07:18:00* Test Item Value Reference Range Interpretation Comments Activated Partial Thromboplast Time (test code = 73721-8) 33.2 23.8-35.5 [facility] T[facility] [id number] 13:06:00 [facility] [address] [address] Patient Name : ANTONIO MILLIGAN MR #: [id number] : 1950 Age/Sex: 67/F Adm Physician : RENAE RUIZ MD Admit Date : Location : [place] Room/Bed : REPORT: Cardiology Report DATE OF Vanessa SANDRA: July 18, 2017 LEXISCAN NUCLEAR STRESS TEST INDICATIONS: Chest pain. DESCRIPTION OF PROCEDURE: After informed consent, the patient was b rought to the stress lab. She was given 11 mCi of technetium 99 Myoview, and myocardial perfusion SPECT images were obtained in the horizontal long and short axis and vertical long axis. Subsequently, the patient was given 0.4 mg of Lexiscan over 10 seconds. Patient was given 33 mCi of technetium 99 M yoview intravenously, and myocardial perfusion SPECT images were obtained in horizontal long axis and short axis and vertical long axis. Gated images wer e also obtained. Patient tolerated the procedure without any complications. REPORT: Baseline EKG shows atrial fibrillation at 63 beats per minute, normal axis, normal intervals, PVCs, nonspecific ST-T changes. PARAMETERS 1. Resting heart rate is 73 beats per minute. 2. Maximal heart rate is 91 b eats per minute. 3. Resting blood pressure 142/81 mmHg. 4. Maximum blood pre ssure 149/76 mmHg. REASON FOR TERMINATION: Endpoint attained. INTERP RETATION 1. Negative for chest pain. 2. Negative for arrhythmias. 3. Blood pressure response consistent with Lexiscan. 4. No significant ST-T changes se en during Lexiscan infusion compared to baseline. 5. Analysis of SPECT imag es reveals patchy radioisotope uptake both during stress and at rest without any significant reversible or fixed perfusion defects. CONCLUSIONS 1. No evidence of significant ischemia or infarction on this study. 2. No wall mo tion abnormalities on this study. 3. Ejection fraction is 67%. D Job#: [id number] [facility] nature Date Dictated By: RENAE RUIZ MD Transcribed By: SMEDS on 07/19/17 <Electronically signed by RENAE RUIZ MD><<Signature on File>> 07/26/17 1035 COPY TO: VQ LUNG SCAN VENT PERFUSION [address] [address] Patient Name: ANTONIO MILLIGAN MR #: [id number] : 1950 Age/Sex: 66/F Req #: [id number] Adm Physician: Ordered by: FLASH JORDAN MD Report #: [id number] Location: [place] Room/Bed: Procedure: [id number] NM/VQ LUNG SCAN VENT PERFUSI ON Exam Date: Exam Time: REPORT STATUS: Sign ed EXAM: VENTILATION PERFUSION LUNG SCAN INDICATION: 66 F with history o f blood clots; SOB; possible pulmonary hypertension COMPARISON: CT chest 08/29/2016 DISCUSSION: Xenon-133 gas 20 mCi was administered via inhalation. Dynamic images of the lungs in the posterior projection were obtained through single breath and washout phases. Distribution of tracer activity is irregular throughout the lungs. Washout is diffusely delayed without evidence of air trapping. Perfusion images of the lungs in multiple projections were obtai alka following intravenous administration of 6.6 mCi of Tc-99m MAA. Distributio n of tracer is irregular throughout the lungs. There are no segmental perfusio n defects of any size. The contours of the lungs are well demarcated. The cardiac silhouette is enlarged. Images of the head show no intracerebral a ccumulation of the tracer. Images of the kidneys show no intraparenchymal acc umulation of tracer. IMPRESSION: 1. Scan findings represent a VERY LO W probability for acute pulmonary embolic disease based on the PIOPED II crite luis. 2. Scan findings are compatible with diffuse parenchymal and/or obstru ctive lung disease. 3. No right to left shunt is identified. Findings t ypical of chronic thromboembolic pulmonary hypertension are not present. 4. Enlarged cardiac silhouette. Signed by: Dr. Gordon Pacheco M.D. on 03/08/19 7:27 PM Dictated By: GORDON PACHECO MD 26 Transcribed By: KODY on 03/08/171926 COPY TO : FLASH JORDAN MD
[2019-09-07 10:34] LABS: CLARITY,URINE SL CLOUDY (CLEAR); COLOR,URINE YELLOW (YELLOW)
[2019-09-07 10:35] LABS: BILIRUBIN,URINE MODERATE (NEGATIVE); KETONES,URINE TRACE (NEGATIVE); LEUKOCYTE ESTERASE ,URINE NEGATIVE (NEGATIVE); NITRITE,URINE NEGATIVE (NEGATIVE); PROTEIN,URINE DIPSTICK 2+ (NEGATIVE); URINE UROBILINOGEN 1 mg/dL (0.2 - 1)
[2019-09-07 10:36] LABS: BACTERIA,URINE RARE /HPF; EPITHELIAL CELLS,URINE FEW /LPF
[2019-09-07 10:39] LABS: ALANINE AMINOTRANSFERASE 9 IU/L (0-55); ALBUMIN 3.9 g/dL (3.5-5.0); ALKALINE PHOSPHATASE 102 IU/L (40-150); ANION GAP 15.9 mmol/L (8-16); BLOOD UREA NITROGEN 8 mg/dL (7-26); BUN/CREATININE RATIO 10 (6-25); CARBON DIOXIDE 27 mmol/L (22-29); CHLORIDE 102 mmol/L (98-107); CREATINE KINASE 34 IU/L (29-168); CREATININE, SERUM 0.79 mg/dL (0.57-1.11); EST GLOMERULAR FILTRATION RATE > 60 ML/MIN (60-); GLUCOSE 143 mg/dL (74-118); POTASSIUM 3.9 mmol/L (3.5-5.1); SODIUM 141 mmol/L (136-145)
[2019-09-07 10:50] LABS: PARTIAL THROMBOPLASTIN TIME 34.6 seconds (23.8-35.5)
[2019-09-07] MEDS ORDERED: METOCLOPRAMIDE10 MG PO (10:55)
[2019-09-07] MEDS ORDERED: HUMALOG MI100 UNIT/4 SQ (10:55)
[2019-09-07] MEDS ORDERED: BENICAR20 MG PO (10:55)
[2019-09-07] MEDS ORDERED: FUROSEMIDE40 MG PO (10:56)
[2019-09-07] MEDS ORDERED: SPIRONOLACTONE25 MG PO (10:57)
[2019-09-07] MEDS ORDERED: VITAMIN D250 MC1 PO (10:59)
[2019-09-07 11:07] LABS: INR 1.28; PROTHROMBIN TIME 16.7 seconds (11.9-14.5)
--- NOTE | 2019-09-07 11:23 | Emergency Department Note ---
History of Present Illnes History of Present Illness Chief Complaint: Abdominal Complaints History of Present Illness This is a 69 year old female FEELS LIKE SHE IS RETAINING FLUID IN HER ABDOMEN AND ITS HARD AND WITH INFLAMMATION. MAKING IT HARD FOR HER TO BREATH, SLEEP AND SHE IS NERVOUS. NOTED LOWER EXTREMITY EDEMA WITH REDNESS. SHORT OF BREATH WITH AMBULATION. PATIENT WEARS CPAP at night. SHE IS SCHEDULED IN [address] BURNS (GASTRO). Note: she has been here many times with same sx's Historian: Patient Arrival Mode: Car Additional Treatment SECURITY SITE SUPERVISOR: NONE Construction Administrator Required: No Onset (how long ago): year(s) (seems worse in past 5 days) Location: abdomen Quality: swelling Radiation: Reports non-radiation Severity: moderate Onset quality: gradual Duration (how long): month(s) (years) Timing of current episode: constant Chronicity: chronic Context: Denies recent illness Relieving factors: none Exacerbating factors: none Associated symptoms: Reports denies other symptoms, Reports other (also with chronic LE edema) Treatments prior to arrival: none Past Medical/Family History Physician Review I have reviewed the patient's past medical and family history. Any updates have been documented here. Past Medical History Recent Fever: No Clinical Suspicion of Infectio: No New/Unexplained Change in Ment: No Past Medical History: Hypertension, Diabetes, Hyperlipedemia Other Medical History: HIGH CHOLESTEROL ANAL CANCER SKIN CANCER/NOSE Past Surgical History: Cholecysctectomy, Hysterectomy, Other Surgery: CARPAL TUNNEL Social History Smoking Cessation: Never Smoker Counseling Performed: No Alcohol Use: None Any Illegal Drug Use: No TB Exposure/Symptoms: No Physically hurt or threatened: No Family History Family history of heart diseas: No Other Last Tetanus: [place] Any Pre-Existing Lines (PICC,: No Review of Systems Review of Systems Constitutional: Reports no symptoms EENTM: Reports no symptoms Cardiovascular: Reports no symptoms Respiratory: Reports no symptoms Gastrointestinal: Reports as per HPI Genitourinary: Reports no symptoms Musculoskeletal: Reports as per HPI Integumentary: Reports no symptoms Neurological: Reports no symptoms Psychological: Reports no symptoms Endocrine: Reports no symptoms Hematological/Lymphatic: Reports no symptoms Physical Exam Related Data Allergies: Coded Allergies: No Known Allergies (Unverified , 12/07/15) Triage Vital Signs Vital Signs Date Time Temp Pulse Resp B/P (MAP) Pulse Ox O2 Delivery O2 Flow Rate FiO2 09/07/19 09:30 97.7 105 18 169/102 97 Room Air 09/07/19 10:15 Vital signs reviewed: Yes Physical Exam CONSTITUTIONAL Constitutional: Present well-developed, Present well-nourished, Present morbidly obese HENT HENT: Present normocephalic, Present atraumatic, Present oropharynx clear/moist, Present nose normal HENT L/R: Present left ext ear normal, Present right ext ear normal EYES Eyes: Reports PERRL, Reports conjunctivae normal NECK Neck: Present ROM normal PULMONARY Pulmonary: Present effort normal, Present breath sounds normal CARDIOVASCULAR Cardiovascular: Present irregular rhythm, Present tachycardia, Present LLE edema, Present RLE edema GASTROINTESTINAL Abdominal: Present soft, Present nontender, Present bowel sounds normal, Present distension; Absent tender, Absent guarding, Absent rebound, Absent left CVA tenderness, Absent right CVA tenderness GENITOURINARY Genitourinary: Present exam deferred SKIN Skin: Present warm, Present dry MUSCULOSKELETAL Musculoskeletal: Present ROM normal NEUROLOGICAL Neurological: Present alert, Present oriented x 3, Present no gross motor or sensory deficits PSYCHOLOGICAL Psychological: Present mood/affect normal, Present judgement normal Results Laboratory Result Diagram: 09/07/19 0941 09/07/19 0941 Laboratory Laboratory Tests Test 09/07/19 10:20 09/07/19 09:41 Urine Color Yellow (YELLOW) Urine Clarity Sl cloudy (CLEAR) Urine pH 5.5 (5 - 7) Urine Specific [place] 1.025 (1.010-1.025) Urine Protein 2+ (NEGATIVE) Urine Glucose (UA) Negative (NEGATIVE) Urine Ketones Trace (NEGATIVE) Urine Blood Trace (NEGATIVE) Urine Nitrite Negative (NEGATIVE) Urine Bilirubin Moderate (NEGATIVE) Urine Urobilinogen 1 mg/dL (0.2 - 1) Urine Leukocyte Esterase Negative (NEGATIVE) Urine RBC 6-10 /HPF (0-5) Urine WBC 6-10 /HPF (0-5) Urine Epithelial Cells Few /LPF (NONE) Urine Bacteria Rare /HPF (NONE) White Blood Count 8.17 x10e3/uL (4.8-10.8) Red Blood Count 5.04 x10e6/uL (3.6-5.1) Hemoglobin 13.5 g/dL (12.0-16.0) Hematocrit 45.5 % (34.2-44.1) Mean Corpuscular Volume 90.3 fL (81-99) Mean Corpuscular Hemoglobin 26.8 pg (28-32) Mean Corpuscular Hemoglobin Concent 29.7 g/dL (31-35) Red Cell Distribution Width 16.8 % (11.7-14.4) Platelet Count 370 x10e3/uL (140-360) Neutrophils (%) (Auto) 82.2 % (38.7-80.0) Lymphocytes (%) (Auto) 7.3 % (18.0-39.1) Monocytes (%) (Auto) 7.5 % (4.4-11.3) Eosinophils (%) (Auto) 1.7 % (0.0-6.0) Basophils (%) (Auto) 0.7 % (0.0-1.0) Neutrophils # (Auto) 6.7 (2.1-6.9) Lymphocytes # (Auto) 0.6 (1.0-3.2) Monocytes # (Auto) 0.6 (0.2-0.8) Eosinophils # (Auto) 0.1 (0.0-0.4) Basophils # (Auto) 0.1 (0.0-0.1) Absolute Immature Granulocyte (auto 0.05 x10e3/uL (0-0.1) Sodium Level 141 mmol/L (136-145) Potassium Level 3.9 mmol/L (3.5-5.1) Chloride Level 102 mmol/L (98-107) Carbon Dioxide Level 27 mmol/L (22-29) Anion Gap 15.9 mmol/L (8-16) Blood Urea Nitrogen 8 mg/dL (7-26) Creatinine 0.79 mg/dL (0.57-1.11) Estimat Glomerular Filtration Rate > 60 ML/MIN (60-) BUN/Creatinine Ratio 10 (6-25) Glucose Level 143 mg/dL (74-118) Calcium Level 9.0 mg/dL (8.4-10.2) Total Bilirubin 1.4 mg/dL (0.2-1.2) Aspartate Amino Transf (AST/SGOT) 15 IU/L (5-34) Alanine Aminotransferase (ALT/SGPT) 9 IU/L (0-55) Alkaline Phosphatase 102 IU/L (40-150) Creatine Kinase 34 IU/L (29-168) Creatine Kinase MB 0.80 ng/mL (0-5.0) Troponin I 0.001 ng/mL (0-0.300) B-Type Natriuretic Peptide 122.2 pg/mL (0-100) Total Protein 7.9 g/dL (6.5-8.1) Albumin 3.9 g/dL (3.5-5.0) Globulin 4.0 g/dL (2.3-3.5) Albumin/Globulin Ratio 1.0 (0.8-2.0) Lab results reviewed: Yes Imaging Imaging results reviewed: Yes Procedures 12 Lead ECG Interpretation ECG Interpretation : ECG: ECG 1 Construction Administrator: Interpreted by ED physician Date: Sep 07, 2019 Time: 10:02 Rhythm: atrial fibrillation Rate: tachycardia (104) QRS axis: right T waves flattening: II, III, aVF, V4, V5, V6 Clinical Impression: abnormal ECG Assessment & Plan Medical Decision Making MDM C/O ABDOMINAL DISTENSION AND SOB WHICH IS CHRONIC X YEARS, SAYS WORSE FOR 5 DAYS - CHECK CBC, CHEM, ECG, CARDIACS, BNP, PT/PTT - R/O STEMI, NSTEMI, CHF, RENAL INSUFF, LIVER DYSFUNCTION Reassessment Reassessment DC HOME, F/U PCP TOMORROW AND DR DAVIS, RTED PRN Assessment & Plan Final Impression: (1) Chronic dyspnea Depart Disposition: HOME, SELF-CARE Last Vital Signs Date Time Temp Pulse Resp B/P (MAP) Pulse Ox O2 Delivery O2 Flow Rate FiO2 09/07/19 10:30 103 17 135/96 99 09/07/19 10:15 Room Air 09/07/19 09:30 97.7 Home Meds Reported Medications Ergocalciferol (Vitamin D2) (Vitamin D2) 50 Mcg Tablet, 125 MCG PO DAILY 09/07/19 Spironolactone (SPIRONOLACTONE) 25 Mg Tablet, 50 MG PO DAILY, #60 TAB 09/07/19 Furosemide (FUROSEMIDE) 40 Mg Tablet, 40 MG PO Daily, #30 TAB 09/07/19 Olmesartan Medoxomil (BENICAR) 20 Mg Tablet, 40 MG PO DAILY, #30 TAB 09/07/19 Insulin Npl/Insulin Lispro (HUMALOG MIX 50-50 KWIKPEN) 100 Unit/1 Ml Insuln.pen, 25 MG SQ AC 09/07/19 Metoclopramide Hcl (METOCLOPRAMIDE HCL) 10 Mg Tablet, 10 MG PO QID, TAB 09/07/19 Warfarin Sodium (WARFARIN SODIUM) 3 Mg Tablet, 6 MG PO DAILY, #30 TAB 02/21/18 Metformin Hcl (METFORMIN HCL) 500 Mg Tablet, 1000 MG PO BID, #60 TAB 06/19/15 Discontinued Reported Medications Insulin Regular, Human (HUMULIN R) 100 Unit/1 Ml Vial, 25 UNITS SQ DAILY 02/21/18 Losartan Potassium (LOSARTAN POTASSIUM) 25 Mg Tablet, PO DAILY 02/21/18 Hydrocodone Bit/Acetaminophen (NORCO 7.5-325 TABLET) 1 Each Tablet, 1 TAB PO Q6H, TAB 12/07/15 Insulin Glargine (LANTUS) 100 Units/Ml Ml, 35 UNITS SC HS 06/19/15 FLIP CUNNINGHAM MD Sep 07, 2019 11:22
--- NOTE | 2019-09-07 11:36 | Diagnostic Imaging Report ---
EXAMINATION: CHEST SINGLE (PORTABLE) INDICATION: Shortness of breath. COMPARISON: 02/26/2019 FINDINGS: TUBES and LINES: None. LUNGS: There is multifocal patchy airspace and interstitial opacification particularly at the lung bases. There is also stable. Hilar fullness. PLEURA: No pleural effusion or pneumothorax. HEART AND MEDIASTINUM: The heart is enlarged. The mediastinal silhouette is otherwise normal. BONES AND SOFT TISSUES: No acute osseous lesion. Soft tissues are unremarkable. UPPER ABDOMEN: No free air under the diaphragm. IMPRESSION: Multifocal patchy airspace and interstitial opacities which may represent pulmonary edema in the presence of cardiomegaly. Superimposed developing infection cannot be excluded. Signed by: Kaitlin Ray MD on 09/07/2019 11:33 AM
== END 2019-09-07 12:55 | disposition home or self-care (01) ==
LOC: ER 09:30
DX: R06.00 Dyspnea, unspecified (principal); R14.0 Abdominal distension (gaseous); I10 Essential (primary) hypertension; E11.9 Type 2 diabetes mellitus without complications; E78.5 Hyperlipidemia, unspecified; E78.00 Pure hypercholesterolemia, unspecified; R94.31 Abnormal electrocardiogram [ECG] [EKG]; Z85.048 Personal history of other malignant neoplasm of rectum, rectosigmoid junction, and anus
CPT/HCPCS: 36415; 71045; 80053; 81001; 82550; 82553; 83880; 84484; 85025; 85610; 85730; 87086; 93005; 99284

== ENCOUNTER → 2019-09-13 | Outpatient (CLI) | payer MEDICARE ==
[~2019-09-13] MED LIST changes: +BENICAR20 MG PO; +FUROSEMIDE40 MG PO; +HUMALOG MI100 UNIT/4 SQ; +METOCLOPRAMIDE10 MG PO; +SPIRONOLACTONE25 MG PO; +VITAMIN D250 MC1 PO
--- NOTE | 2019-09-13 13:41 | Diagnostic Imaging Report ---
EXAM: US ABDOMEN COMPLETE INDICATION: Anasarca, type 2 diabetes. COMPARISON: CT abdomen/pelvis 12-10-2018. TECHNIQUE: Transverse and longitudinal quintero scale and color doppler sonographic images of the upper abdomen were obtained. FINDINGS: LIVER 15.7 cm in the right midclavicular line. Normal echogenicity of the liver with normal contour, no masses. SPLEEN 12.5 cm in maximum diameter. Normal echogenicity, no masses. GALLBLADDER Status post cholecystectomy. BILE DUCTS No intra nor extra-hepatic biliary dilation. Common bile duct measures 0.5 cm PANCREAS: Visualized portions are unremarkable. RIGHT KIDNEY: 12.1 cm Echogenicity: Normal Collecting System: No hydronephrosis Stones: None Cyst/Mass: None LEFT KIDNEY: 11.8 cm Echogenicity: Normal Collecting System: No hydronephrosis Stones: None Cyst/Mass: None VESSELS: Aorta: Visualized portions are within normal size limits. The mid and distal abdominal aorta are not visualized due to overlying gas. Inferior Vena Cava: Visualized portions are normal Main Portal Vein: 1 cm, normal size with hepatopetal flow. FREE FLUID: None IMPRESSION: Borderline mild hepatomegaly. Status post cholecystectomy. Signed by: Dr. Nanci Branch MD on 09/13/2019 1:37 PM
== END ==
LOC: US 11:26
PROVIDERS: ATTEND Internal Medicine Gastroenterology
DX: E11.9 Type 2 diabetes mellitus without complications (principal); R60.1 Generalized edema; I10 Essential (primary) hypertension; E66.01 Morbid (severe) obesity due to excess calories; Z71.3 Dietary counseling and surveillance
CPT/HCPCS: 76700

== ENCOUNTER → 2020-06-18 | Day surgery (SDC) | payer MEDICARE ==
[2020-06-15 10:46] LABS: BASOPHILS # (AUTO) 0.1 (0.0-0.1); BASOPHILS % 0.6 % (0.0-1.0); EOSINOPHILS # (AUTO) 0.3 (0.0-0.4); EOSINOPHILS % 2.7 % (0.0-6.0); HEMATOCRIT 49.6 % (34.2-44.1); HEMOGLOBIN 15.7 g/dL (12.0-16.0); LYMPHOCYTES # (AUTO) 0.9 (1.0-3.2); LYMPHOCYTES % 9.1 % (18.0-39.1); MEAN CORPUSCULAR HEMOGLOBIN 29.1 pg (28-32); MEAN CORPUSCULAR HGB CONC 31.7 g/dL (31-35); MEAN CORPUSCULAR VOLUME 91.9 fL (81-99); MONOCYTES # (AUTO) 0.7 (0.2-0.8); MONOCYTES % 7.2 % (4.4-11.3); NEUTROPHILS # (AUTO) 7.9 (2.1-6.9); PLATELET COUNT 352 x10e3/uL (140-360); RED CELL DISTRIBUTION WIDTH 13.8 % (11.7-14.4)
[~2020-06-18] MED LIST changes: +FENTANYL CITRATE/PF 100MCG/2 ML INJ ONE; +JARDIANCE25 MG; +LIDOCAINE HCL 2% LOCAL INJ 5 ML SDV VIAL INJ ONE; +PROPOFOL IV EMULSION 10 MG/ML 20 ML VIAL ONE; +VITAMIN D3250 MCG
[2020-06-18 10:10] VITALS: BP 107/70
== END | disposition home or self-care (01) ==
LOC: OR 07:00
PROVIDERS: ATTEND Internal Medicine Gastroenterology
DX: K61.2 Anorectal abscess (principal); Z85.048 Personal history of other malignant neoplasm of rectum, rectosigmoid junction, and anus; K92.1 Melena; K57.30 Diverticulosis of large intestine without perforation or abscess without bleeding; K64.8 Other hemorrhoids; G47.33 Obstructive sleep apnea (adult) (pediatric); E66.01 Morbid (severe) obesity due to excess calories; M19.90 Unspecified osteoarthritis, unspecified site; I10 Essential (primary) hypertension; R06.02 Shortness of breath; E78.5 Hyperlipidemia, unspecified; E11.9 Type 2 diabetes mellitus without complications; Z01.810 Encounter for preprocedural cardiovascular examination; Z01.812 Encounter for preprocedural laboratory examination; Z20.822 Contact with and (suspected) exposure to COVID-19; Z79.4 Long term (current) use of insulin; Z79.01 Long term (current) use of anticoagulants; Z68.41 Body mass index [BMI] 40.0-44.9, adult; Z86.16 Personal history of COVID-19
CPT/HCPCS: 36415 ×2; 45378; 82948; 85025; 93005; J2001; J2704; J3010; U0002

== ENCOUNTER 2022-03-15 11:41 | Inpatient (IN) | payer MEDICARE ==
[~2022-03-15] VITALS: Ht 154.9 cm; Wt 159.7 kg
[~2022-03-15 11:41] MED LIST changes: +ALBUTEROL SULFATE HFA 8GM INHALATION AEROSOL INH ONE; +ETOMIDATE 2 MG/ML 10 ML INJ IV ONE; -FENTANYL CITRATE/PF 100MCG/2 ML INJ ONE; +POVIDONE IODINE 0.05% 0.05 % ML PO ONE
[2022-03-15 12:56] LABS: BASOPHILS # (AUTO) 0.1 (0.0-0.1); BASOPHILS % 0.8 % (0.0-1.0); EOSINOPHILS # (AUTO) 0.5 (0.0-0.4); EOSINOPHILS % 5.8 % (0.0-6.0); HEMATOCRIT 39.8 % (34.2-44.1); HEMOGLOBIN 11.3 g/dL (12.0-16.0); LYMPHOCYTES # (AUTO) 0.7 (1.0-3.2); LYMPHOCYTES % 7.3 % (18.0-39.1); MEAN CORPUSCULAR HEMOGLOBIN 28.4 pg (28-32); MEAN CORPUSCULAR HGB CONC 28.4 g/dL (31-35); MONOCYTES # (AUTO) 0.6 (0.2-0.8); NEUTROPHILS # (AUTO) 7.1 (2.1-6.9); NEUTROPHILS % 78.2 % (38.7-80.0); PLATELET COUNT 397 x10e3/uL (140-360); RED BLOOD COUNT 3.98 x10e6/uL (3.6-5.1); RED CELL DISTRIBUTION WIDTH 14.6 % (11.7-14.4)
[2022-03-15] MEDS ORDERED: SODIUM CHLORIDE 0.9% 1000ML 1,000 ML IV ONE (13:00)
[2022-03-15 13:15] LABS: ALBUMIN 3.4 g/dL (3.5-5.0); ALBUMIN/GLOBULIN RATIO 0.9 (0.8-2.0); ANION GAP 10.4 mmol/L (8-16); CREATININE, SERUM 0.86 mg/dL (0.57-1.11); POTASSIUM 5.4 mmol/L (3.5-5.1)
[2022-03-15] MEDS ORDERED: SODIUM CHLORIDE 0.9% 100 ML ONE (13:43)
[2022-03-15] MEDS ORDERED: IOPAMIDOL 370 MG/ML 100 ML INFUS..BTL INJ ONE (13:44)
[2022-03-15 16:54] LABS: INR 1.48; PROTHROMBIN TIME 18.1 seconds (11.9-14.5)
[2022-03-15 16:55] LABS: PARTIAL THROMBOPLASTIN TIME 35.4 seconds (23.8-35.5)
[2022-03-15] MEDS ORDERED: ONDANSETRON HCL INJ 2MG/ML 2ML 2 MG/ML VIAL IV PRN (17:15)
[2022-03-15] MEDS ORDERED: SODIUM CHLORIDE FLUSH 10 ML SYR INJ PRN (17:15)
[2022-03-15] MEDS ORDERED: SODIUM CHLORIDE 0.9% 250ML 250 ML IV ONE (18:15)
[2022-03-15 18:48] LABS: HEMATOCRIT 41.4 % (34.2-44.1); HEMOGLOBIN 11.5 g/dL (12.0-16.0)
[2022-03-15 20:00] VITALS: BP 114/69
[2022-03-15 23:00] VITALS: BP 114/69
[2022-03-16 00:17] VITALS: BP 111/72
[2022-03-16 04:00] VITALS: BP 99/53
[2022-03-16 05:22] LABS: BASOPHILS # (AUTO) 0.1 (0.0-0.1); BASOPHILS % 0.6 % (0.0-1.0); EOSINOPHILS # (AUTO) 0.6 (0.0-0.4); EOSINOPHILS % 6.8 % (0.0-6.0); HEMATOCRIT 37.2 % (34.2-44.1); HEMOGLOBIN 10.4 g/dL (12.0-16.0); LYMPHOCYTES % 11.5 % (18.0-39.1); MEAN CORPUSCULAR HEMOGLOBIN 28.2 pg (28-32); MEAN CORPUSCULAR VOLUME 100.8 fL (81-99); MONOCYTES # (AUTO) 0.8 (0.2-0.8); MONOCYTES % 9.2 % (4.4-11.3); NEUTROPHILS # (AUTO) 6.2 (2.1-6.9); NEUTROPHILS % 71.3 % (38.7-80.0); PLATELET COUNT 376 x10e3/uL (140-360); RED BLOOD COUNT 3.69 x10e6/uL (3.6-5.1); RED CELL DISTRIBUTION WIDTH 14.6 % (11.7-14.4)
[2022-03-16 05:40] LABS: CALCIUM 9.1 mg/dL (8.4-10.2); CREATININE, SERUM 1.01 mg/dL (0.57-1.11)
[2022-03-16] MEDS ORDERED: BISACODYL 5 MG TAB EC PO ONE (07:30)
[2022-03-16] MEDS ORDERED: PHYTONADIONE 10 MG/ML AMP SQ ONE (07:30)
[2022-03-16] MEDS ORDERED: PEG (High)/E-LYTE SOLN 4,000 ML BTL PO ONE (07:30)
[2022-03-16 08:00] VITALS: BP 104/64
[2022-03-16 08:10] VITALS: BP 104/64
[2022-03-16] MEDS ORDERED: DEXTROSE 50% SYRINGE 50 ML IV PRN (09:00)
[2022-03-16 09:08] LABS: CHOL/HDL RATIO 3.3 (3.0-3.6)
[2022-03-16] MEDS: OCTREOTIDE ACETATE 500 MCG in SODIUM CHLORIDE 0.9% 250ML 250 ML IV SCH ×2 (09:51→17:30)
[2022-03-16 10:10] LABS: HEMATOCRIT 37.6 % (34.2-44.1); HEMOGLOBIN 10.6 g/dL (12.0-16.0)
[2022-03-16 11:00] VITALS: BP 129/92
[2022-03-16] MEDS: INSULIN REGULAR, HUMAN 100 UNIT/1 ML SQ SCH ×3 (11:50→21:00)
[2022-03-16 15:23] LABS: HEMATOCRIT 41.1 % (34.2-44.1); HEMOGLOBIN 11.3 g/dL (12.0-16.0)
[2022-03-16 16:00] VITALS: BP 169/95
[2022-03-17 05:13] LABS: BASOPHILS # (AUTO) 0.1 (0.0-0.1); BASOPHILS % 0.9 % (0.0-1.0); EOSINOPHILS # (AUTO) 0.5 (0.0-0.4); EOSINOPHILS % 6.9 % (0.0-6.0); HEMATOCRIT 37.3 % (34.2-44.1); HEMOGLOBIN 10.5 g/dL (12.0-16.0); LYMPHOCYTES # (AUTO) 0.5 (1.0-3.2); LYMPHOCYTES % 6.8 % (18.0-39.1); MEAN CORPUSCULAR HGB CONC 28.2 g/dL (31-35); MEAN CORPUSCULAR VOLUME 99.5 fL (81-99); MONOCYTES # (AUTO) 0.5 (0.2-0.8); MONOCYTES % 7.1 % (4.4-11.3); NEUTROPHILS # (AUTO) 5.3 (2.1-6.9); NEUTROPHILS % 77.9 % (38.7-80.0); PLATELET COUNT 329 x10e3/uL (140-360); RED BLOOD COUNT 3.75 x10e6/uL (3.6-5.1); RED CELL DISTRIBUTION WIDTH 14.6 % (11.7-14.4)
[2022-03-17 05:24] LABS: INR 1.3; PROTHROMBIN TIME 16.4 seconds (11.9-14.5)
[2022-03-17 05:38] LABS: ALBUMIN 3.3 g/dL (3.5-5.0); ALBUMIN/GLOBULIN RATIO 0.9 (0.8-2.0); ANION GAP 11.2 mmol/L (8-16); CALCIUM 8.7 mg/dL (8.4-10.2); CREATININE, SERUM 0.75 mg/dL (0.57-1.11); POTASSIUM 4.2 mmol/L (3.5-5.1)
[2022-03-17] MEDS ORDERED: PANTOPRAZOLE SO40 MG PO (06:48)
[2022-03-17] MEDS: INSULIN REGULAR, HUMAN 100 UNIT/1 ML SQ SCH ×4 (07:30→21:09)
[2022-03-17] MEDS: OCTREOTIDE ACETATE 500 MCG in SODIUM CHLORIDE 0.9% 250ML 250 ML IV SCH ×4 (08:22→13:30)
[2022-03-17 08:50] VITALS: BP 109/79
[2022-03-17 08:55] VITALS: BP 109/79
[2022-03-17 14:30] VITALS: BP 129/80
[2022-03-17 16:28] VITALS: BP 137/95
[2022-03-17] MEDS ORDERED: TRAMADOL HCL 50 MG TAB PO PRN (16:45)
[2022-03-17] MEDS ORDERED: Morphine 2mg Syringe 2 MG/ML SYR IV PRN (16:45)
[2022-03-17] MEDS ORDERED: ACETAMINOPHEN 325 MG TAB PO PRN (16:45)
[2022-03-17 20:00] VITALS: BP 115/83
[2022-03-17 21:41] VITALS: BP 115/73
[2022-03-18] VITALS (7 sets, daily range): BP systolic 97–122; BP diastolic 58–77
[2022-03-18 05:42] LABS: BASOPHILS # (AUTO) 0.1 (0.0-0.1); BASOPHILS % 0.9 % (0.0-1.0); EOSINOPHILS # (AUTO) 0.3 (0.0-0.4); EOSINOPHILS % 4.7 % (0.0-6.0); HEMATOCRIT 35.8 % (34.2-44.1); LYMPHOCYTES # (AUTO) 0.5 (1.0-3.2); MEAN CORPUSCULAR HEMOGLOBIN 27.7 pg (28-32); MEAN CORPUSCULAR HGB CONC 27.9 g/dL (31-35); MEAN CORPUSCULAR VOLUME 99.2 fL (81-99); MONOCYTES # (AUTO) 0.6 (0.2-0.8); MONOCYTES % 8.9 % (4.4-11.3); PLATELET COUNT 338 x10e3/uL (140-360); RED BLOOD COUNT 3.61 x10e6/uL (3.6-5.1); RED CELL DISTRIBUTION WIDTH 14.6 % (11.7-14.4)
[2022-03-18 06:10] LABS: ALBUMIN 3.3 g/dL (3.5-5.0); CALCIUM 8.3 mg/dL (8.4-10.2); CREATININE, SERUM 0.75 mg/dL (0.57-1.11)
[2022-03-18] MEDS: INSULIN REGULAR, HUMAN 100 UNIT/1 ML SQ SCH ×4 (07:30→20:31)
[2022-03-18] MEDS: OCTREOTIDE ACETATE 500 MCG in SODIUM CHLORIDE 0.9% 250ML 250 ML IV SCH ×2 (10:33→20:30)
[2022-03-19 04:00] VITALS: BP 121/72
[2022-03-19] MEDS: OCTREOTIDE ACETATE 500 MCG in SODIUM CHLORIDE 0.9% 250ML 250 ML IV SCH ×2 (05:38→17:22)
[2022-03-19 05:55] LABS: BASOPHILS % 0.6 % (0.0-1.0); EOSINOPHILS # (AUTO) 0.3 (0.0-0.4); HEMATOCRIT 36.6 % (34.2-44.1); HEMOGLOBIN 10.2 g/dL (12.0-16.0); LYMPHOCYTES # (AUTO) 0.5 (1.0-3.2); LYMPHOCYTES % 7.7 % (18.0-39.1); MEAN CORPUSCULAR HEMOGLOBIN 27.6 pg (28-32); MEAN CORPUSCULAR HGB CONC 27.9 g/dL (31-35); MEAN CORPUSCULAR VOLUME 99.2 fL (81-99); MONOCYTES # (AUTO) 0.6 (0.2-0.8); MONOCYTES % 8.8 % (4.4-11.3); NEUTROPHILS # (AUTO) 5.3 (2.1-6.9); NEUTROPHILS % 78.5 % (38.7-80.0); PLATELET COUNT 335 x10e3/uL (140-360); RED BLOOD COUNT 3.69 x10e6/uL (3.6-5.1); RED CELL DISTRIBUTION WIDTH 14.6 % (11.7-14.4)
[2022-03-19 06:31] LABS: ALBUMIN 3.2 g/dL (3.5-5.0); ALBUMIN/GLOBULIN RATIO 0.9 (0.8-2.0); ANION GAP 11.9 mmol/L (8-16); CALCIUM 8.3 mg/dL (8.4-10.2); CREATININE, SERUM 0.8 mg/dL (0.57-1.11); POTASSIUM 3.9 mmol/L (3.5-5.1)
[2022-03-19 07:50] VITALS: BP 111/69
[2022-03-19] MEDS: INSULIN REGULAR, HUMAN 100 UNIT/1 ML SQ SCH ×3 (07:50→16:39)
[2022-03-19 08:05] VITALS: BP 111/69
[2022-03-19 12:27] VITALS: BP 121/65
[2022-03-19 15:33] VITALS: BP 133/68
[2022-03-19 20:00] VITALS: BP 126/67
== END 2022-03-19 22:35 | disposition home or self-care (01) | DRG 394 ==
LOC: ER 12:49 → ERHOLD 17:09 → MED/SURG 19:50
PROVIDERS: ADMIT Internal Medicine; ATTEND Internal Medicine
PROC: 0DJD8ZZ Inspection of Lower Intestinal Tract, Via Natural or Artificial Opening Endoscopic (ICD-10-PCS; principal; 2022-03-17 13:19)
DX: K64.4 Residual hemorrhoidal skin tags (principal); C19 Malignant neoplasm of rectosigmoid junction; K74.60 Unspecified cirrhosis of liver; I48.91 Unspecified atrial fibrillation; I10 Essential (primary) hypertension; E11.9 Type 2 diabetes mellitus without complications; E78.5 Hyperlipidemia, unspecified; G47.30 Sleep apnea, unspecified; D64.9 Anemia, unspecified; E87.5 Hyperkalemia; R16.1 Splenomegaly, not elsewhere classified; K44.9 Diaphragmatic hernia without obstruction or gangrene; K57.90 Diverticulosis of intestine, part unspecified, without perforation or abscess without bleeding; Z79.01 Long term (current) use of anticoagulants; Z86.718 Personal history of other venous thrombosis and embolism; Z86.711 Personal history of pulmonary embolism; Z85.828 Personal history of other malignant neoplasm of skin; Z90.49 Acquired absence of other specified parts of digestive tract; Z99.81 Dependence on supplemental oxygen; Z20.822 Contact with and (suspected) exposure to COVID-19; Z79.4 Long term (current) use of insulin; Z79.84 Long term (current) use of oral hypoglycemic drugs
CPT/HCPCS: 0223U; 36415; 43239; 45378; 74174; 80048; 80053; 80061; 82948; 83036; 85014; 85018; 85025; 85610; 85730; 86850; 86900; 86920; 88305; 88312; 88342; 93005; 93970; 94799; 99284; J1817; J2001; J2270; J2353; J2405; J3430; J7030; J7050; Q9967

== ENCOUNTER 2022-05-02 08:00 | Inpatient (IN) | payer MEDICARE ==
[~2022-05-02] VITALS: Ht 154.9 cm; Wt 159.7 kg
[~2022-05-02 08:00] MED LIST changes: -ALBUTEROL SULFATE HFA 8GM INHALATION AEROSOL INH ONE; -ETOMIDATE 2 MG/ML 10 ML INJ IV ONE; -LIDOCAINE HCL 2% LOCAL INJ 5 ML SDV VIAL INJ ONE; +PANTOPRAZOLE SO40 MG PO; -POVIDONE IODINE 0.05% 0.05 % ML PO ONE; -PROPOFOL IV EMULSION 10 MG/ML 20 ML VIAL ONE
[2022-05-02 08:38] LABS: BASOPHILS # (AUTO) 0.1 (0.0-0.1); BASOPHILS % 0.6 % (0.0-1.0); EOSINOPHILS # (AUTO) 0.6 (0.0-0.4); EOSINOPHILS % 7.3 % (0.0-6.0); LYMPHOCYTES # (AUTO) 0.8 (1.0-3.2); MEAN CORPUSCULAR VOLUME 89.5 fL (81-99); MONOCYTES # (AUTO) 0.5 (0.2-0.8); MONOCYTES % 5.8 % (4.4-11.3); NEUTROPHILS # (AUTO) 6.1 (2.1-6.9); NEUTROPHILS % 75.7 % (38.7-80.0); PLATELET COUNT 419 x10e3/uL (140-360); RED BLOOD COUNT 2.58 x10e6/uL (3.6-5.1); RED CELL DISTRIBUTION WIDTH 14.9 % (11.7-14.4)
[2022-05-02 08:50] LABS: INR 1.32; PROTHROMBIN TIME 16.9 seconds (11.9-14.5)
[2022-05-02 08:55] LABS: HEMOGLOBIN 6.7 g/dL (12.0-16.0)
[2022-05-02 08:56] LABS: HEMATOCRIT 23.1 % (34.2-44.1)
[2022-05-02 08:57] LABS: ALBUMIN 3.1 g/dL (3.5-5.0); ALBUMIN/GLOBULIN RATIO 0.9 (0.8-2.0); ANION GAP 13.1 mmol/L (8-16); CALCIUM 8.6 mg/dL (8.4-10.2); CREATININE, SERUM 0.87 mg/dL (0.57-1.11); POTASSIUM 5.1 mmol/L (3.5-5.1)
[2022-05-02] MEDS ORDERED: SODIUM CHLORIDE 0.9% 250ML 250 ML IV ONE (09:30)
[2022-05-02] MEDS ORDERED: SODIUM CHLORIDE 0.9% 100 ML ONE (10:52)
[2022-05-02] MEDS ORDERED: IOPAMIDOL 370 MG/ML 100 ML INFUS..BTL INJ ONE (10:52)
[2022-05-02 11:05] LABS: FERRITIN 23.74 ng/mL (4.63-204.00)
[2022-05-03] MEDS ORDERED: HYDROCODON-ACE1 EA12 PO (16:16)
[2022-05-03] MEDS ORDERED: LANTUS 3ML100 UNITS/ SQ (16:16)
[2022-05-03] MEDS ORDERED: SPIRONOLACTONE100 MG PO (16:16)
[2022-05-03] MEDS ORDERED: XARELTO20 MG PO (16:16)
[2022-05-03] MEDS ORDERED: CARVEDILOL12.5 MG PO (16:16)
[2022-05-03] MEDS ORDERED: METOPROLOL SUCC25 MG PO (16:16)
== END 2022-05-02 20:00 | disposition left against medical advice (07) | DRG 379 ==
LOC: ER 08:17 → ERHOLD 10:06 → UNDOADMIN 10:06 → ERHOLD 10:07 → UNDODISIN 19:59 → ER 20:00
PROVIDERS: ADMIT Internal Medicine; ATTEND Internal Medicine
DX: K62.5 Hemorrhage of anus and rectum (principal); I10 Essential (primary) hypertension; I48.91 Unspecified atrial fibrillation; Z79.01 Long term (current) use of anticoagulants; Z53.21 Procedure and treatment not carried out due to patient leaving prior to being seen by health care provider; G47.30 Sleep apnea, unspecified; Z85.828 Personal history of other malignant neoplasm of skin; Z85.048 Personal history of other malignant neoplasm of rectum, rectosigmoid junction, and anus; E78.5 Hyperlipidemia, unspecified; Z86.718 Personal history of other venous thrombosis and embolism; Z86.711 Personal history of pulmonary embolism; Z53.29 Procedure and treatment not carried out because of patient's decision for other reasons; Z20.822 Contact with and (suspected) exposure to COVID-19
CPT/HCPCS: 0223U; 36415; 74174; 80053; 82607; 82728; 83540; 84466; 85025; 85610; 86850; 86900; 86920; 94799; 99284; J7050; Q9967

== ENCOUNTER 2022-05-23 20:56 | Emergency (ER) | payer MEDICARE ==
[~2022-05-23] VITALS: Ht 154.9 cm; Wt 159.7 kg
[~2022-05-23 20:56] MED LIST changes: +ANUCORT-HC25 MG RC; +CARVEDILOL12.5 MG PO; +COREG3.125 MG PO; +HYDROCODON-ACE1 EA12 PO; +LANTUS 3ML100 UNITS/ SQ; +METOPROLOL SUCC25 MG PO; +SPIRONOLACTONE100 MG PO; +XARELTO20 MG PO
[2022-05-23 21:42] LABS: CLARITY,URINE CLEAR (CLEAR); COLOR,URINE YELLOW (YELLOW); KETONES,URINE NEGATIVE (NEGATIVE); LEUKOCYTE ESTERASE ,URINE NEGATIVE (NEGATIVE); NITRITE,URINE NEGATIVE (NEGATIVE); PROTEIN,URINE DIPSTICK NEGATIVE (NEGATIVE); URINE UROBILINOGEN 0.2 mg/dL (0.2 - 1)
[2022-05-23 21:49] LABS: BACTERIA,URINE FEW /HPF; EPITHELIAL CELLS,URINE FEW /LPF; RBC,URINE 0-5 /HPF (0-5); WBC,URINE (MAN) 0-5 /HPF (0-5)
[2022-05-23 21:57] LABS: BASOPHILS % 0.3 % (0.0-1.0); EOSINOPHILS # (AUTO) 0.3 (0.0-0.4); EOSINOPHILS % 3.3 % (0.0-6.0); HEMATOCRIT 29.8 % (34.2-44.1); HEMOGLOBIN 8.8 g/dL (12.0-16.0); LYMPHOCYTES # (AUTO) 0.4 (1.0-3.2); LYMPHOCYTES % 4.3 % (18.0-39.1); MEAN CORPUSCULAR HEMOGLOBIN 24.9 pg (28-32); MEAN CORPUSCULAR HGB CONC 29.5 g/dL (31-35); MEAN CORPUSCULAR VOLUME 84.4 fL (81-99); MONOCYTES # (AUTO) 0.5 (0.2-0.8); MONOCYTES % 6.1 % (4.4-11.3); NEUTROPHILS # (AUTO) 7.6 (2.1-6.9); NEUTROPHILS % 85.5 % (38.7-80.0); PLATELET COUNT 396 x10e3/uL (140-360); RED BLOOD COUNT 3.53 x10e6/uL (3.6-5.1); RED CELL DISTRIBUTION WIDTH 16.5 % (11.7-14.4)
[2022-05-23 21:58] LABS: ALANINE AMINOTRANSFERASE 8 IU/L (0-55); ALBUMIN 3.7 g/dL (3.5-5.0); ALKALINE PHOSPHATASE 78 IU/L (40-150); ANION GAP 14.3 mmol/L (8-16); BLOOD UREA NITROGEN 19 mg/dL (7-26); BUN/CREATININE RATIO 21 (6-25); CALCIUM 8.9 mg/dL (8.4-10.2); CARBON DIOXIDE 26 mmol/L (22-29); CHLORIDE 103 mmol/L (98-107); CREATINE KINASE 40 IU/L (29-168); CREATININE, SERUM 0.91 mg/dL (0.57-1.11); GLUCOSE 124 mg/dL (74-118); POTASSIUM 4.3 mmol/L (3.5-5.1); SODIUM 139 mmol/L (136-145)
[2022-05-23] MEDS ORDERED: IOPAMIDOL 370 MG/ML 100 ML INFUS..BTL INJ ONE (22:06)
[2022-05-23 23:24] LABS: INR 1.31; PROTHROMBIN TIME 16.8 seconds (11.9-14.5)
[2022-05-24 00:11] VITALS: BP 125/72; PULSE 83; RESP 18; TEMP 98.3; O2SAT 100
== END 2022-05-24 00:29 | disposition other institution (70) ==
LOC: ER 21:06
DX: R06.00 Dyspnea, unspecified (principal); R18.8 Other ascites; E11.65 Type 2 diabetes mellitus with hyperglycemia; I10 Essential (primary) hypertension; I48.91 Unspecified atrial fibrillation; E78.5 Hyperlipidemia, unspecified; D64.9 Anemia, unspecified; G47.30 Sleep apnea, unspecified; R94.31 Abnormal electrocardiogram [ECG] [EKG]; Z20.822 Contact with and (suspected) exposure to COVID-19; Z85.048 Personal history of other malignant neoplasm of rectum, rectosigmoid junction, and anus; Z85.828 Personal history of other malignant neoplasm of skin
CPT/HCPCS: 36415; 74177; 80053; 81001; 82550; 82553; 83690; 84484; 85025; 85610; 93005; 99284; Q9967; U0002

== ENCOUNTER → 2022-11-25 | Outpatient (REF) | payer MEDICARE ==
[~2022-11-25] MED LIST changes: +ALBUMIN 25% 12.5GM 50ML 200 ML IV ONE
[2022-11-25 11:04] LABS: BASOPHILS # (AUTO) 0.1 (0.0-0.1); BASOPHILS % 0.8 % (0.0-1.0); EOSINOPHILS # (AUTO) 0.8 (0.0-0.4); EOSINOPHILS % 10.5 % (0.0-6.0); HEMATOCRIT 32.4 % (34.2-44.1); HEMOGLOBIN 9.5 g/dL (12.0-16.0); LYMPHOCYTES # (AUTO) 0.4 (1.0-3.2); LYMPHOCYTES % 5.1 % (18.0-39.1); MEAN CORPUSCULAR HEMOGLOBIN 23.7 pg (28-32); MEAN CORPUSCULAR HGB CONC 29.3 g/dL (31-35); MEAN CORPUSCULAR VOLUME 80.8 fL (81-99); MONOCYTES # (AUTO) 0.5 (0.2-0.8); MONOCYTES % 7.2 % (4.4-11.3); NEUTROPHILS # (AUTO) 5.7 (2.1-6.9); PLATELET COUNT 470 x10e3/uL (140-360); RED BLOOD COUNT 4.01 x10e6/uL (3.6-5.1); RED CELL DISTRIBUTION WIDTH 18.6 % (11.7-14.4); WHITE BLOOD COUNT 7.49 x10e3/uL (4.8-10.8)
[2022-11-25 11:17] LABS: INR 1.23; PROTHROMBIN TIME 16.3 seconds (11.9-14.5)
[2022-11-25 11:18] LABS: PARTIAL THROMBOPLASTIN TIME 35.2 seconds (23.8-35.5)
== END ==
LOC: US 10:30
PROVIDERS: ATTEND Internal Medicine Gastroenterology
DX: R18.8 Other ascites (principal)
CPT/HCPCS: 36415; 49083; 85025; 85610; 85730

== ENCOUNTER → 2022-12-13 | Outpatient (REF) | payer MEDICARE ==
[~2022-12-13] MED LIST changes: +ALBUMIN 25% 12.5GM 50ML 150 ML IV ONE; -ALBUMIN 25% 12.5GM 50ML 200 ML IV ONE
== END ==
LOC: US 12:11
PROVIDERS: ATTEND Internal Medicine Gastroenterology
DX: R18.8 Other ascites (principal)
CPT/HCPCS: 49083

== ENCOUNTER → 2023-01-04 | Outpatient (REF) | payer MEDICARE ==
[~2023-01-04] MED LIST changes: +ALBUMIN 25% 12.5GM 50ML 100 ML IV ONE; -ALBUMIN 25% 12.5GM 50ML 150 ML IV ONE
== END ==
LOC: US 12:11
PROVIDERS: ATTEND Internal Medicine Gastroenterology
DX: R18.8 Other ascites (principal)
CPT/HCPCS: 49083

== ENCOUNTER → 2023-05-31 | Outpatient (REF) | payer MEDICARE ==
[~2023-05-31] MED LIST changes: +ALBUMIN 25% 12.5GM 0.25 GM/ML BTL IV ONE; -ALBUMIN 25% 12.5GM 50ML 100 ML IV ONE
== END ==
LOC: US 09:40
PROVIDERS: ATTEND Internal Medicine Gastroenterology
DX: R18.8 Other ascites (principal)
CPT/HCPCS: 49083

== ENCOUNTER → 2023-06-23 | Outpatient (REF) | payer MEDICARE ==
[~2023-06-23] MED LIST changes: -ALBUMIN 25% 12.5GM 0.25 GM/ML BTL IV ONE; +ALBUMIN 25% 12.5GM 50ML 200 ML IV ONE
[2023-06-23 10:58] LABS: BASOPHILS # (AUTO) 0.1 (0.0-0.1); BASOPHILS % 0.7 % (0.0-1.0); EOSINOPHILS # (AUTO) 0.6 (0.0-0.4); EOSINOPHILS % 7.1 % (0.0-6.0); HEMATOCRIT 36.9 % (34.2-44.1); HEMOGLOBIN 10.6 g/dL (12.0-16.0); LYMPHOCYTES # (AUTO) 0.4 (1.0-3.2); MEAN CORPUSCULAR HEMOGLOBIN 24.4 pg (28-32); MEAN CORPUSCULAR HGB CONC 28.7 g/dL (31-35); MONOCYTES # (AUTO) 0.5 (0.2-0.8); MONOCYTES % 6.2 % (4.4-11.3); NEUTROPHILS # (AUTO) 6.9 (2.1-6.9); NEUTROPHILS % 80.4 % (38.7-80.0); PLATELET COUNT 523 x10e3/uL (140-360); RED BLOOD COUNT 4.34 x10e6/uL (3.6-5.1); RED CELL DISTRIBUTION WIDTH 17.6 % (11.7-14.4); WHITE BLOOD COUNT 8.59 x10e3/uL (4.8-10.8)
[2023-06-23 11:12] LABS: INR 1.24; PARTIAL THROMBOPLASTIN TIME 31.3 seconds (23.8-35.5); PROTHROMBIN TIME 16.4 seconds (11.9-14.5)
== END ==
LOC: US 09:52
PROVIDERS: ATTEND Internal Medicine Gastroenterology
DX: R18.8 Other ascites (principal); K74.69 Other cirrhosis of liver
CPT/HCPCS: 36415; 49083; 85025; 85610; 85730

== ENCOUNTER → 2023-09-21 | Outpatient (REF) | payer MEDICARE ==
[~2023-09-21] MED LIST changes: +LIDOCAINE HCL 1% LOCAL INJ 20 ML VIAL ONE
[2023-09-21 12:45] LABS: BASOPHILS # (AUTO) 0.1 (0.0-0.1); BASOPHILS % 0.7 % (0.0-1.0); EOSINOPHILS # (AUTO) 0.5 (0.0-0.4); HEMATOCRIT 37.7 % (34.2-44.1); HEMOGLOBIN 10.6 g/dL (12.0-16.0); LYMPHOCYTES # (AUTO) 0.4 (1.0-3.2); LYMPHOCYTES % 4.3 % (18.0-39.1); MEAN CORPUSCULAR HEMOGLOBIN 24.9 pg (28-32); MEAN CORPUSCULAR HGB CONC 28.1 g/dL (31-35); MEAN CORPUSCULAR VOLUME 88.7 fL (81-99); MONOCYTES # (AUTO) 0.7 (0.2-0.8); MONOCYTES % 6.7 % (4.4-11.3); NEUTROPHILS # (AUTO) 8.3 (2.1-6.9); NEUTROPHILS % 82.7 % (38.7-80.0); PLATELET COUNT 549 x10e3/uL (140-360); RED BLOOD COUNT 4.25 x10e6/uL (3.6-5.1); RED CELL DISTRIBUTION WIDTH 15.9 % (11.7-14.4); WHITE BLOOD COUNT 9.99 x10e3/uL (4.8-10.8)
[2023-09-21 12:58] LABS: INR 1.22; PARTIAL THROMBOPLASTIN TIME 32.3 seconds (23.8-35.5)
== END ==
LOC: US 12:16
PROVIDERS: ATTEND Internal Medicine Gastroenterology
DX: R18.8 Other ascites (principal)
CPT/HCPCS: 36415; 49083; 85025; 85610; 85730; C1729; J2001

== ENCOUNTER → 2023-10-04 | Outpatient (REF) | payer MEDICARE ==
[~2023-10-04] MED LIST changes: +ALBUMIN 25% 12.5GM 50ML 100 ML IV ONE; -LIDOCAINE HCL 1% LOCAL INJ 20 ML VIAL ONE
== END ==
LOC: US 12:39
PROVIDERS: ATTEND Internal Medicine Gastroenterology
DX: R18.8 Other ascites (principal)
CPT/HCPCS: 49083

== ENCOUNTER → 2023-10-18 | Outpatient (REF) | payer MEDICARE ==
[~2023-10-18] MED LIST changes: -ALBUMIN 25% 12.5GM 50ML 100 ML IV ONE; -ALBUMIN 25% 12.5GM 50ML 200 ML IV ONE; +ALBUMIN 25% 12.5GM 50ML 300 ML IV ONE
== END ==
LOC: US 12:59
PROVIDERS: ATTEND Internal Medicine Gastroenterology
DX: R18.8 Other ascites (principal)
CPT/HCPCS: 49083; C1729

== ENCOUNTER → 2023-11-01 | Outpatient (REF) | payer MEDICARE ==
[~2023-11-01] MED LIST changes: +ALBUMIN 25% 12.5GM 50ML 200 ML IV ONE; -ALBUMIN 25% 12.5GM 50ML 300 ML IV ONE
[2023-11-01 13:02] LABS: BASOPHILS % 0.5 % (0.0-1.0); EOSINOPHILS # (AUTO) 0.7 (0.0-0.4); EOSINOPHILS % 8.8 % (0.0-6.0); HEMATOCRIT 40.2 % (34.2-44.1); LYMPHOCYTES # (AUTO) 0.4 (1.0-3.2); LYMPHOCYTES % 5.6 % (18.0-39.1); MEAN CORPUSCULAR HEMOGLOBIN 24.8 pg (28-32); MEAN CORPUSCULAR HGB CONC 27.4 g/dL (31-35); MEAN CORPUSCULAR VOLUME 90.5 fL (81-99); MONOCYTES # (AUTO) 0.5 (0.2-0.8); MONOCYTES % 6.1 % (4.4-11.3); NEUTROPHILS # (AUTO) 6.2 (2.1-6.9); NEUTROPHILS % 78.4 % (38.7-80.0); PLATELET COUNT 530 x10e3/uL (140-360); RED BLOOD COUNT 4.44 x10e6/uL (3.6-5.1); RED CELL DISTRIBUTION WIDTH 16.3 % (11.7-14.4); WHITE BLOOD COUNT 7.87 x10e3/uL (4.8-10.8)
[2023-11-01 13:23] LABS: INR 1.19; PROTHROMBIN TIME 15.7 seconds (11.9-14.5)
[2023-11-01 13:24] LABS: PARTIAL THROMBOPLASTIN TIME 30.7 seconds (23.8-35.5)
== END ==
LOC: US 12:34
PROVIDERS: ATTEND Internal Medicine Gastroenterology
DX: R18.8 Other ascites (principal)
CPT/HCPCS: 36415; 49083; 85025; 85610; 85730; C1729

== ENCOUNTER → 2023-11-14 | Outpatient (REF) | payer MEDICARE ==
[~2023-11-14] MED LIST changes: +ALBUMIN 25% 12.5GM 50ML 100 ML IV ONE
== END ==
LOC: US 12:51
PROVIDERS: ATTEND Internal Medicine Gastroenterology
DX: R18.8 Other ascites (principal)
CPT/HCPCS: 49083

== ENCOUNTER → 2023-11-29 | Outpatient (REF) | payer MEDICARE ==
[~2023-11-29] MED LIST changes: -ALBUMIN 25% 12.5GM 50ML 100 ML IV ONE; -ALBUMIN 25% 12.5GM 50ML 200 ML IV ONE; +ALBUMIN 25% 12.5GM 50ML 250 ML IV ONE
== END ==
LOC: US 11:28
PROVIDERS: ATTEND Internal Medicine Gastroenterology
DX: R18.8 Other ascites (principal)
CPT/HCPCS: 49083

== ENCOUNTER → 2023-12-13 | Outpatient (REF) | payer MEDICARE ==
[~2023-12-13] MED LIST changes: +ALBUMIN 25% 12.5GM 50ML 150 ML IV ONE; -ALBUMIN 25% 12.5GM 50ML 250 ML IV ONE; +ALBUMIN 25% 12.5GM 50ML 50 ML IV ONE
[2023-12-13 12:55] LABS: BASOPHILS # (AUTO) 0.1 (0.0-0.1); BASOPHILS % 0.8 % (0.0-1.0); EOSINOPHILS # (AUTO) 0.8 (0.0-0.4); EOSINOPHILS % 9.6 % (0.0-6.0); HEMATOCRIT 41.2 % (34.2-44.1); HEMOGLOBIN 11.5 g/dL (12.0-16.0); LYMPHOCYTES # (AUTO) 0.5 (1.0-3.2); LYMPHOCYTES % 5.8 % (18.0-39.1); MEAN CORPUSCULAR HEMOGLOBIN 25.1 pg (28-32); MEAN CORPUSCULAR HGB CONC 27.9 g/dL (31-35); MEAN CORPUSCULAR VOLUME 89.8 fL (81-99); MONOCYTES # (AUTO) 0.4 (0.2-0.8); MONOCYTES % 5.5 % (4.4-11.3); NEUTROPHILS # (AUTO) 6.2 (2.1-6.9); NEUTROPHILS % 77.8 % (38.7-80.0); PLATELET COUNT 528 x10e3/uL (140-360); RED BLOOD COUNT 4.59 x10e6/uL (3.6-5.1); RED CELL DISTRIBUTION WIDTH 16.8 % (11.7-14.4); WHITE BLOOD COUNT 7.94 x10e3/uL (4.8-10.8)
[2023-12-13 13:06] LABS: INR 1.1; PROTHROMBIN TIME 14.8 seconds (11.9-14.5)
[2023-12-13 13:07] LABS: PARTIAL THROMBOPLASTIN TIME 30.1 seconds (23.8-35.5)
== END ==
LOC: US 12:14
PROVIDERS: ATTEND Internal Medicine Gastroenterology
DX: R18.8 Other ascites (principal)
CPT/HCPCS: 36415; 49083; 85025; 85610; 85730

== ENCOUNTER → 2023-12-27 | Outpatient (REF) | payer MEDICARE ==
[~2023-12-27] MED LIST changes: -ALBUMIN 25% 12.5GM 50ML 150 ML IV ONE; +ALBUMIN 25% 12.5GM 50ML 200 ML IV ONE; -ALBUMIN 25% 12.5GM 50ML 50 ML IV ONE
== END ==
LOC: US 12:13
PROVIDERS: ATTEND Internal Medicine Gastroenterology
DX: R18.8 Other ascites (principal)
CPT/HCPCS: 49083

== ENCOUNTER → 2024-01-08 | Outpatient (REF) | payer MEDICARE | LOC: US 13:07 | PROVIDERS: ATTEND Internal Medicine Gastroenterology | DX: R18.8 Other ascites (principal) | CPT/HCPCS: 49083 ==

== ENCOUNTER → 2024-01-22 | Outpatient (REF) | payer MEDICARE ==
[2024-01-22 12:51] LABS: BASOPHILS # (AUTO) 0.1 (0.0-0.1); BASOPHILS % 0.9 % (0.0-1.0); EOSINOPHILS # (AUTO) 0.6 (0.0-0.4); EOSINOPHILS % 7.7 % (0.0-6.0); HEMATOCRIT 41.5 % (34.2-44.1); HEMOGLOBIN 11.4 g/dL (12.0-16.0); LYMPHOCYTES # (AUTO) 0.4 (1.0-3.2); LYMPHOCYTES % 5.1 % (18.0-39.1); MEAN CORPUSCULAR HEMOGLOBIN 25.6 pg (28-32); MEAN CORPUSCULAR HGB CONC 27.5 g/dL (31-35); MONOCYTES # (AUTO) 0.5 (0.2-0.8); MONOCYTES % 5.7 % (4.4-11.3); NEUTROPHILS # (AUTO) 6.4 (2.1-6.9); NEUTROPHILS % 80.1 % (38.7-80.0); PLATELET COUNT 541 x10e3/uL (140-360); RED BLOOD COUNT 4.46 x10e6/uL (3.6-5.1); RED CELL DISTRIBUTION WIDTH 16.5 % (11.7-14.4); WHITE BLOOD COUNT 8.03 x10e3/uL (4.8-10.8)
[2024-01-22 13:02] LABS: INR 1.09; PROTHROMBIN TIME 14.8 seconds (11.9-14.5)
[2024-01-22 13:03] LABS: PARTIAL THROMBOPLASTIN TIME 32.1 seconds (23.8-35.5)
== END ==
LOC: US 12:22
PROVIDERS: ATTEND Internal Medicine Gastroenterology
DX: R18.8 Other ascites (principal)
CPT/HCPCS: 36415; 49083; 85025; 85610; 85730

== ENCOUNTER → 2024-02-09 | Outpatient (REF) | payer MEDICARE ==
[~2024-02-09] MED LIST changes: +ALBUMIN 25% 12.5GM 50ML 150 ML IV ONE; -ALBUMIN 25% 12.5GM 50ML 200 ML IV ONE
== END ==
LOC: US 12:30
PROVIDERS: ATTEND Internal Medicine Gastroenterology
DX: R18.8 Other ascites (principal)
CPT/HCPCS: 49083

== ENCOUNTER → 2024-02-23 | Outpatient (REF) | payer MEDICARE ==
[~2024-02-23] MED LIST changes: -ALBUMIN 25% 12.5GM 50ML 150 ML IV ONE; +ALBUMIN 25% 12.5GM 50ML 300 ML IV ONE
[2024-02-23 13:01] LABS: BASOPHILS # (AUTO) 0.1 (0.0-0.1); BASOPHILS % 0.9 % (0.0-1.0); EOSINOPHILS # (AUTO) 0.8 (0.0-0.4); EOSINOPHILS % 10.1 % (0.0-6.0); HEMATOCRIT 42.5 % (34.2-44.1); HEMOGLOBIN 11.5 g/dL (12.0-16.0); LYMPHOCYTES # (AUTO) 0.4 (1.0-3.2); MEAN CORPUSCULAR HEMOGLOBIN 25.7 pg (28-32); MEAN CORPUSCULAR HGB CONC 27.1 g/dL (31-35); MEAN CORPUSCULAR VOLUME 94.9 fL (81-99); MONOCYTES # (AUTO) 0.5 (0.2-0.8); MONOCYTES % 6.8 % (4.4-11.3); NEUTROPHILS # (AUTO) 6.1 (2.1-6.9); NEUTROPHILS % 76.8 % (38.7-80.0); PLATELET COUNT 512 x10e3/uL (140-360); RED BLOOD COUNT 4.48 x10e6/uL (3.6-5.1); RED CELL DISTRIBUTION WIDTH 16.1 % (11.7-14.4); WHITE BLOOD COUNT 7.94 x10e3/uL (4.8-10.8)
[2024-02-23 13:17] LABS: INR 1.07; PARTIAL THROMBOPLASTIN TIME 29.8 seconds (23.8-35.5); PROTHROMBIN TIME 14.6 seconds (11.9-14.5)
== END ==
LOC: US 12:25
PROVIDERS: ATTEND Internal Medicine Gastroenterology
DX: R18.8 Other ascites (principal)
CPT/HCPCS: 36415; 49083; 85025; 85610; 85730

== ENCOUNTER → 2024-03-08 | Outpatient (REF) | payer MEDICARE | LOC: US 12:40 | PROVIDERS: ATTEND Internal Medicine Gastroenterology | DX: R18.8 Other ascites (principal) | CPT/HCPCS: 49083 ==

== ENCOUNTER → 2024-03-22 | Outpatient (REF) | payer MEDICARE ==
[~2024-03-22] MED LIST changes: -ALBUMIN 25% 12.5GM 50ML 300 ML IV ONE; +ALBUMIN 25% 12.5GM 50ML 50 ML IV ONE
== END ==
LOC: US 12:20
PROVIDERS: ATTEND Internal Medicine Gastroenterology
DX: R18.8 Other ascites (principal)
CPT/HCPCS: 49083

== ENCOUNTER → 2024-04-05 | Outpatient (REF) | payer MEDICARE ==
[~2024-04-05] MED LIST changes: -ALBUMIN 25% 12.5GM 50ML 50 ML IV ONE
[2024-04-05 13:17] LABS: BASOPHILS # (AUTO) 0.1 (0.0-0.1); EOSINOPHILS # (AUTO) 0.7 (0.0-0.4); EOSINOPHILS % 9.8 % (0.0-6.0); HEMATOCRIT 39.7 % (34.2-44.1); HEMOGLOBIN 11.4 g/dL (12.0-16.0); LYMPHOCYTES # (AUTO) 0.4 (1.0-3.2); LYMPHOCYTES % 5.2 % (18.0-39.1); MEAN CORPUSCULAR HEMOGLOBIN 25.6 pg (28-32); MEAN CORPUSCULAR HGB CONC 28.7 g/dL (31-35); MONOCYTES # (AUTO) 0.4 (0.2-0.8); MONOCYTES % 5.4 % (4.4-11.3); NEUTROPHILS # (AUTO) 5.8 (2.1-6.9); NEUTROPHILS % 78.3 % (38.7-80.0); PLATELET COUNT 557 x10e3/uL (140-360); RED BLOOD COUNT 4.46 x10e6/uL (3.6-5.1); RED CELL DISTRIBUTION WIDTH 15.9 % (11.7-14.4); WHITE BLOOD COUNT 7.35 x10e3/uL (4.8-10.8)
[2024-04-05 13:24] LABS: INR 1.14; PROTHROMBIN TIME 15.3 seconds (11.9-14.5)
[2024-04-05 13:25] LABS: PARTIAL THROMBOPLASTIN TIME 29.5 seconds (23.8-35.5)
== END ==
LOC: US 12:23
PROVIDERS: ATTEND Internal Medicine Gastroenterology
DX: R18.8 Other ascites (principal)
CPT/HCPCS: 36415; 49083; 85025; 85610; 85730

== ENCOUNTER → 2024-04-22 | Outpatient (REF) | payer MEDICARE ==
[~2024-04-22] MED LIST changes: +ALBUMIN 25% 12.5GM 50ML 300 ML IV ONE
== END ==
LOC: US 11:04
PROVIDERS: ATTEND Internal Medicine Gastroenterology
DX: R18.8 Other ascites (principal)
CPT/HCPCS: 49083

== ENCOUNTER → 2024-05-06 | Outpatient (REF) | payer MEDICARE ==
[~2024-05-06] MED LIST changes: +ALBUMIN 25% 12.5GM 50ML 150 ML IV ONE; -ALBUMIN 25% 12.5GM 50ML 300 ML IV ONE
[2024-05-06 10:46] LABS: BASOPHILS # (AUTO) 0.1 (0.0-0.1); EOSINOPHILS # (AUTO) 0.8 (0.0-0.4); EOSINOPHILS % 10.7 % (0.0-6.0); HEMATOCRIT 41.1 % (34.2-44.1); HEMOGLOBIN 11.7 g/dL (12.0-16.0); LYMPHOCYTES # (AUTO) 0.6 (1.0-3.2); LYMPHOCYTES % 8.5 % (18.0-39.1); MEAN CORPUSCULAR HEMOGLOBIN 25.3 pg (28-32); MEAN CORPUSCULAR HGB CONC 28.5 g/dL (31-35); MONOCYTES # (AUTO) 0.5 (0.2-0.8); MONOCYTES % 6.4 % (4.4-11.3); NEUTROPHILS # (AUTO) 5.3 (2.1-6.9); NEUTROPHILS % 72.9 % (38.7-80.0); PLATELET COUNT 547 x10e3/uL (140-360); RED BLOOD COUNT 4.62 x10e6/uL (3.6-5.1); WHITE BLOOD COUNT 7.32 x10e3/uL (4.8-10.8)
[2024-05-06 11:04] LABS: INR 1.13; PROTHROMBIN TIME 15.2 seconds (11.9-14.5)
[2024-05-06 11:05] LABS: PARTIAL THROMBOPLASTIN TIME 32.6 seconds (23.8-35.5)
== END ==
LOC: US 10:15
PROVIDERS: ATTEND Internal Medicine Gastroenterology
DX: R18.8 Other ascites (principal)
CPT/HCPCS: 36415; 49083; 85025; 85610; 85730

== ENCOUNTER → 2024-05-17 | Outpatient (REF) | payer MEDICARE ==
[~2024-05-17] MED LIST changes: -ALBUMIN 25% 12.5GM 50ML 150 ML IV ONE; +ALBUMIN 25% 12.5GM 50ML 200 ML IV ONE
== END ==
LOC: US 12:35
PROVIDERS: ATTEND Internal Medicine Gastroenterology
DX: R18.8 Other ascites (principal)
CPT/HCPCS: 49083

== ENCOUNTER → 2024-05-31 | Outpatient (REF) | payer MEDICARE ==
[~2024-05-31] MED LIST changes: -ALBUMIN 25% 12.5GM 50ML 200 ML IV ONE; +ALBUMIN 25% 12.5GM 50ML 300 ML IV ONE
== END ==
LOC: US 12:51
PROVIDERS: ATTEND Internal Medicine Gastroenterology
DX: R18.8 Other ascites (principal)
CPT/HCPCS: 49083

== ENCOUNTER → 2024-06-14 | Outpatient (REF) | payer MEDICARE ==
[~2024-06-14] MED LIST changes: +ALBUMIN 25% 12.5GM 50ML 150 ML IV ONE; -ALBUMIN 25% 12.5GM 50ML 300 ML IV ONE; +ALBUMIN 25% 12.5GM 50ML 50 ML IV ONE
[2024-06-14 12:33] LABS: BASOPHILS # (AUTO) 0.1 (0.0-0.1); BASOPHILS % 0.8 % (0.0-1.0); EOSINOPHILS # (AUTO) 0.8 (0.0-0.4); EOSINOPHILS % 10.3 % (0.0-6.0); HEMATOCRIT 40.7 % (34.2-44.1); HEMOGLOBIN 11.8 g/dL (12.0-16.0); LYMPHOCYTES # (AUTO) 0.5 (1.0-3.2); LYMPHOCYTES % 5.9 % (18.0-39.1); MEAN CORPUSCULAR HEMOGLOBIN 25.7 pg (28-32); MEAN CORPUSCULAR VOLUME 88.5 fL (81-99); MONOCYTES # (AUTO) 0.5 (0.2-0.8); NEUTROPHILS % 76.5 % (38.7-80.0); PLATELET COUNT 576 x10e3/uL (140-360); RED CELL DISTRIBUTION WIDTH 15.8 % (11.7-14.4); WHITE BLOOD COUNT 7.84 x10e3/uL (4.8-10.8)
[2024-06-14 12:50] LABS: INR 1.18; PROTHROMBIN TIME 15.7 seconds (11.9-14.5)
[2024-06-14 12:51] LABS: PARTIAL THROMBOPLASTIN TIME 31.5 seconds (23.8-35.5)
[2024-06-14 12:59] LABS: ALBUMIN 3.1 g/dL (3.5-5.0); ALBUMIN/GLOBULIN RATIO 0.7 (0.8-2.0); ANION GAP 14.1 mmol/L (8-16); BILIRUBIN,TOTAL 0.5 mg/dL (0.2-1.2); CALCIUM 8.8 mg/dL (8.4-10.2); CREATININE, SERUM 0.93 mg/dL (0.57-1.11); POTASSIUM 5.1 mmol/L (3.5-5.1); TOTAL PROTEIN 7.5 g/dL (6.5-8.1)
== END ==
LOC: US 12:02
PROVIDERS: ATTEND Internal Medicine Gastroenterology
DX: R18.8 Other ascites (principal)
CPT/HCPCS: 36415; 49083; 80053; 85025; 85610; 85730

== ENCOUNTER → 2024-07-26 | Outpatient (REF) | payer MEDICARE ==
[~2024-07-26] MED LIST changes: -ALBUMIN 25% 12.5GM 50ML 150 ML IV ONE; +ALBUMIN 25% 12.5GM 50ML 300 ML IV ONE; -ALBUMIN 25% 12.5GM 50ML 50 ML IV ONE
[2024-07-26 13:34] LABS: INR 1.12; PROTHROMBIN TIME 15.4 seconds (11.9-14.5)
[2024-07-26 13:38] LABS: CREATININE, SERUM 0.92 mg/dL (0.57-1.11)
[2024-07-26 13:52] LABS: BASOPHILS # (AUTO) 0.1 (0.0-0.1); BASOPHILS % 0.8 % (0.0-1.0); EOSINOPHILS # (AUTO) 0.6 (0.0-0.4); EOSINOPHILS % 7.1 % (0.0-6.0); HEMATOCRIT 42.1 % (34.2-44.1); HEMOGLOBIN 12.3 g/dL (12.0-16.0); LYMPHOCYTES # (AUTO) 0.5 (1.0-3.2); LYMPHOCYTES % 5.8 % (18.0-39.1); MEAN CORPUSCULAR HEMOGLOBIN 26.2 pg (28-32); MEAN CORPUSCULAR HGB CONC 29.2 g/dL (31-35); MEAN CORPUSCULAR VOLUME 89.8 fL (81-99); MONOCYTES # (AUTO) 0.4 (0.2-0.8); MONOCYTES % 5.5 % (4.4-11.3); NEUTROPHILS # (AUTO) 6.3 (2.1-6.9); NEUTROPHILS % 80.4 % (38.7-80.0); PLATELET COUNT 535 x10e3/uL (140-360); RED BLOOD COUNT 4.69 x10e6/uL (3.6-5.1); RED CELL DISTRIBUTION WIDTH 16.1 % (11.7-14.4); WHITE BLOOD COUNT 7.79 x10e3/uL (4.8-10.8)
== END ==
LOC: US 12:28
PROVIDERS: ATTEND Internal Medicine Gastroenterology
DX: R18.8 Other ascites (principal)
CPT/HCPCS: 36415; 49083; 82565; 84520; 85025; 85610; 85730

== ENCOUNTER → 2024-08-13 | Outpatient (REF) | payer MEDICARE ==
[~2024-08-13] MED LIST changes: +ALBUMIN 25% 12.5GM 50ML 200 ML IV ONE; -ALBUMIN 25% 12.5GM 50ML 300 ML IV ONE
== END ==
LOC: US 11:38
PROVIDERS: ATTEND Internal Medicine Gastroenterology
DX: R18.8 Other ascites (principal)
CPT/HCPCS: 49083

== ENCOUNTER → 2024-08-19 | Outpatient (REF) | payer MEDICARE ==
[~2024-08-19] MED LIST changes: -ALBUMIN 25% 12.5GM 50ML 200 ML IV ONE
[2024-08-19 14:22] LABS: BASOPHILS % 0.7 % (0.0-1.0); EOSINOPHILS % 7.7 % (0.0-6.0); LYMPHOCYTES % 6.2 % (18.0-39.1); MONOCYTES % 5.2 % (4.4-11.3); NEUTROPHILS % 79.8 % (38.7-80.0); RED CELL DISTRIBUTION WIDTH 15.9 % (11.7-14.4)
[2024-08-19 14:41] LABS: INR 1.12
[2024-08-19 14:48] LABS: EST GLOMERULAR FILTRATION RATE 68.0 ML/MIN (>=60)
== END ==
LOC: LAB 08:00 → EDSTATUS 08-22 12:00
PROVIDERS: ATTEND Ophthalmology
DX: Z01.818 Encounter for other preprocedural examination (principal); H25.11 Age-related nuclear cataract, right eye
CPT/HCPCS: 36415; 80053; 85025; 85610; 85730; 93005

== ENCOUNTER → 2024-08-30 | Outpatient (REF) | payer MEDICARE ==
[~2024-08-30] MED LIST changes: +ALBUMIN 25% 12.5GM 50ML 200 ML IV ONE
== END ==
LOC: US 11:16
PROVIDERS: ATTEND Internal Medicine Gastroenterology
DX: R18.8 Other ascites (principal)
CPT/HCPCS: 49083

== ENCOUNTER → 2024-09-11 | Outpatient (REF) | payer MEDICARE ==
[~2024-09-11] MED LIST changes: +ALBUMIN 25% 12.5GM 50ML 150 ML IV ONE; -ALBUMIN 25% 12.5GM 50ML 200 ML IV ONE
== END ==
LOC: US 11:53
PROVIDERS: ATTEND Internal Medicine Gastroenterology
DX: R18.8 Other ascites (principal)
CPT/HCPCS: 49083

== ENCOUNTER → 2024-09-27 | Outpatient (REF) | payer MEDICARE ==
[2024-09-27 10:30] LABS: BASOPHILS % 0.7 % (0.0-1.0); EOSINOPHILS % 10.4 % (0.0-6.0); LYMPHOCYTES % 6.6 % (18.0-39.1); MONOCYTES % 6.3 % (4.4-11.3); NEUTROPHILS % 75.4 % (38.7-80.0); RED CELL DISTRIBUTION WIDTH 15.4 % (11.7-14.4)
[2024-09-27 10:56] LABS: INR 1.08
== END ==
LOC: US 09:37
PROVIDERS: ATTEND Internal Medicine Gastroenterology
DX: R18.8 Other ascites (principal)
CPT/HCPCS: 36415; 49083; 85025; 85610; 85730

== ENCOUNTER → 2024-10-09 | Outpatient (REF) | payer MEDICARE ==
[~2024-10-09] MED LIST changes: +ALBUMIN 25% 12.5GM 50ML 100 ML IV ONE; -ALBUMIN 25% 12.5GM 50ML 150 ML IV ONE
== END ==
LOC: US 13:25
PROVIDERS: ATTEND Internal Medicine Gastroenterology
DX: R18.8 Other ascites (principal)
CPT/HCPCS: 49083; C1729

== ENCOUNTER → 2024-10-23 | Outpatient (REF) | payer MEDICARE ==
[~2024-10-23] MED LIST changes: -ALBUMIN 25% 12.5GM 50ML 100 ML IV ONE; +ALBUMIN 25% 12.5GM 50ML 200 ML IV ONE
[2024-10-23 13:16] LABS: BASOPHILS % 0.8 % (0.0-1.0); EOSINOPHILS % 8.7 % (0.0-6.0); LYMPHOCYTES % 6.0 % (18.0-39.1); MONOCYTES % 5.9 % (4.4-11.3); NEUTROPHILS % 78.2 % (38.7-80.0); RED CELL DISTRIBUTION WIDTH 15.5 % (11.7-14.4)
[2024-10-23 13:32] LABS: INR 1.21
== END ==
LOC: US 12:20
PROVIDERS: ATTEND Internal Medicine Gastroenterology
DX: R18.8 Other ascites (principal)
CPT/HCPCS: 36415; 49083; 85025; 85610; 85730

== ENCOUNTER → 2024-11-08 | Outpatient (REF) | payer MEDICARE | LOC: US 11:56 | PROVIDERS: ATTEND Internal Medicine Gastroenterology | DX: R18.8 Other ascites (principal) | CPT/HCPCS: 49083 ==

== ENCOUNTER → 2024-11-21 | Outpatient (REF) | payer MEDICARE ==
[~2024-11-21] MED LIST changes: +ALBUMIN 25% 12.5GM 50ML 150 ML IV ONE; -ALBUMIN 25% 12.5GM 50ML 200 ML IV ONE
== END ==
LOC: US 12:22
PROVIDERS: ATTEND Internal Medicine Gastroenterology
DX: R18.8 Other ascites (principal)
CPT/HCPCS: 49083

== ENCOUNTER → 2024-12-05 | Outpatient (REF) | payer MEDICARE ==
[~2024-12-05] MED LIST changes: +ALBUMIN 25% 12.5GM 50ML 100 ML IV ONE; -ALBUMIN 25% 12.5GM 50ML 150 ML IV ONE
[2024-12-05 13:23] LABS: BASOPHILS % 0.9 % (0.0-1.0); EOSINOPHILS % 7.8 % (0.0-6.0); LYMPHOCYTES % 6.3 % (18.0-39.1); MONOCYTES % 5.6 % (4.4-11.3); NEUTROPHILS % 79.1 % (38.7-80.0); RED CELL DISTRIBUTION WIDTH 15.5 % (11.7-14.4)
[2024-12-05 13:49] LABS: INR 1.17
[2024-12-05 13:58] LABS: EST GLOMERULAR FILTRATION RATE 58.0 ML/MIN (>=60)
== END ==
LOC: US 12:58
PROVIDERS: ATTEND Internal Medicine Gastroenterology
DX: R18.8 Other ascites (principal)
CPT/HCPCS: 36415; 49083; 80053; 85025; 85610; 85730